=== PATIENT | female | born 1950 | race African-American/Black ===

== ENCOUNTER 2016-10-20 17:16 | Inpatient (IN) | payer MEDICARE, MEDICAID ==
[~2016-10-20] VITALS: Ht 175.3 cm; Wt 75.1 kg
[2016-10-20] VITALS (10 sets, daily range): BP systolic 93–127; BP diastolic 54–83; PULSE 83–132; RESP 16–24; TEMP 98.2–99; O2SAT 93–98
[~2016-10-20 17:16] MED LIST: ALLO100T PO; ASPI81TA11 PO; CLON0.1T PO; CLON1TAB PO; CYCL1TAB29 PO; DONE10TA7 PO; HYDR8TAB PO; LISI-515 PO; MORP1TAB25 PO; MORP1TAB26 PO; PROT40TA PO; VENTAER INH
[2016-10-20] MEDS ORDERED: SODIUM CHLOR 0.9% 1000 ML INJ 1,000 ML IV SCH (17:44)
[2016-10-20] MEDS ORDERED: SODIUM CHLORIDE 0.9% FLUSH 5 ML FLUSH IVF PRN (17:45)
[2016-10-20] MEDS ORDERED: PANTOPRAZOLE INJ 80 MG in SODIUM CHLORIDE 0.9% INJ 100 ML IV SCH (17:45)
[2016-10-20] MEDS ORDERED: PANTOPRAZOLE INJ 80 MG in SODIUM CHLORIDE 0.9% INJ 35 ML IV ONE (17:45)
[2016-10-20 18:16] LABS: AUTOMATED NEUTROPHIL # 2.6 TH/MM3 (1.8-7.7); BASOPHIL % 0.7 % (0.0-2.0); EOSINOPHIL # 0.1 TH/MM3 (0-0.4); EOSINOPHIL % 1.7 % (0.0-4.0); HEMATOCRIT 40.3 % (35.0-46.0); HEMO FLAGS DIFF FINAL; LYMPH % 34.4 % (9.0-44.0); LYMPHOCYTE # 1.7 TH/MM3 (1.0-4.8); MEAN CELL VOLUME 89.2 FL (80.0-100.0); MEAN CORPUSCULAR HEMOGLOBIN 30.4 PG (27.0-34.0); MONO % 10.1 % (0.0-8.0); NEUT % 53.1 % (16.0-70.0); PLATELET COUNT 193 TH/MM3 (150-450); RED BLOOD COUNT 4.51 MIL/MM3 (4.00-5.30); RED CELL DISTRIBUTION WIDTH 15.2 % (11.6-17.2); WHITE BLOOD COUNT 4.9 TH/MM3 (4.0-11.0)
[2016-10-20 18:27] LABS: APTT (PATIENT) 23.9 SEC (24.3-30.1); PROTHROMBIN TIME - PATIENT 11.2 SEC (9.8-11.6)
[2016-10-20] MEDS ORDERED: SODIUM CHLOR 0.9% 250 ML INJ 250 ML IV ONE (18:30)
--- NOTE | 2016-10-20 18:35 | PD ---
HPI Chief Complaint: GI Complaint Time Seen by Provider: 17:44 Travel History International Travel<30 days: No Contact w/Intl Traveler<30days: No Traveled to known affect area: No History of Present Illness HPI This is a 66-year-old female who presents to the emergency department with bright red blood per rectum. She says she went to the bathroom and she started to feel liquid coming out of her rectum. She thought it was diarrhea but when she looked it was bright red blood. She's never had blood come from her rectum like this before. She does say she feels a little bit lightheaded and dizzy. The bleeding is continued in the emergency department. She did have some lower abdominal cramping. She denies any blood thinners. PFSH Past Medical History Alzheimer's Disease: Yes (PT DENIES) Anemia: Yes (IRON DEFICIENCY ANEMIA CHRONIC) Arthritis: Yes (rheumatoid) Asthma: No Autoimmune Disease: No Anxiety: Yes Depression: Yes Cancer: No Cardiovascular Problems: Yes High Cholesterol: Yes Chest Pain: Yes Congestive Heart Failure: Yes Dementia: Yes Diabetes: No Diminished Hearing: No Endocrine: No Gastrointestinal Disorders: Yes (mass on liver) Genitourinary: No Hepatitis: Yes (C secondary to IV drug abuse, B (questionable)) Hiatal Hernia: Yes (REPAIR) Hypertension: Yes Immune Disorder: No Implanted Vascular Access Dvce: No Musculoskeletal: Yes Neurologic: Yes Psychiatric: Yes (ADDICTION & DEPRESSION) Reproductive: No Respiratory: Yes Immunizations Current: Yes Ulcer: Yes Menopausal: Yes : 5 Para: 3 : 2 Past Surgical History Abdominal Surgery: Yes (INGUINAL HERNIA REPAIR) Section: Yes (X1) Gynecologic Surgery: Yes Pacemaker: No Other Surgery: Yes (fx nose, fx ankle) Social History Alcohol Use: Yes (OCC) Tobacco Use: Yes (1 PPD) Substance Use: No Allergies-Medications (Allergen,Severity, Reaction): Coded Allergies: No Known Allergies (Verified , 10/15/16) Reported Meds & Prescriptions Reported Meds & Active Scripts Active Protonix (Pantoprazole Sodium) 40 Mg Tab 40 Mg PO DAILY Lisinopril 20 Mg Tab 20 Mg PO DAILY Resume lisinopril 20mg daily (taking the medication you have at home is okay) Clonidine (Clonidine HCl) 0.1 Mg Tab 0.1 Mg PO BID Ventolin Hfa 18 GM Inh (Albuterol Sulfate) 90 Mcg/Act Aer 2 Puff INH Q6H PRN Aspirin EC (Aspirin) 81 Mg Tabdr 81 Mg PO DAILY Reported Morphine ER (Morphine Sulfate) 60 Mg Tab 60 Mg PO DAILY IN THE PM Morphine ER (Morphine Sulfate) 30 Mg Tab 30 Mg PO DAILY IN THE AM Hydromorphone (Hydromorphone HCl) 8 Mg Tab 8 Mg PO QID Donepezil 10 Mg Tab 10 Mg PO HS Flexeril (Cyclobenzaprine HCl) 10 Mg Tab 10 Mg PO BID Clonazepam 1 Mg Tab 1 Mg PO BID Allopurinol 100 Mg Tab 100 Mg PO DAILY Review of Systems Except as stated in HPI: all other systems reviewed are Neg Physical Exam Narrative GENERAL: Pale, unwell-appearing SKIN: Warm and dry. HEAD: Atraumatic. Normocephalic. EYES: Pupils equal and round. No injection or drainage. ENT: Moist mucous membranes NECK: Trachea midline. CARDIOVASCULAR: Tachycardic. No murmur appreciated. RESPIRATORY: Clear to auscultation. Breath sounds equal bilaterally. GASTROINTESTINAL: Abdomen soft, tender mass in the supraumbilical region, non- reducible, large amount of pooled dark red blood in the rectum MUSCULOSKELETAL: No obvious deformities. NEUROLOGICAL: Awake and alert. No obvious cranial nerve deficits. Moving all extremities. PSYCHIATRIC: Appropriate mood and affect; insight and judgment normal. Data Data Last Documented VS Vital Signs Date Time Temp Pulse Resp B/P Pulse Ox O2 Delivery O2 Flow Rate FiO2 10/20/16 18:45 131 18 108/77 96 Room Air 10/20/16 17:20 99.0 Orders Electrocardiogram (10/20/16 ) Complete Blood Count With Diff (10/20/16 17:44) Comprehensive Metabolic Panel (10/20/16 17:44) Prothrombin Time / Inr (Pt) (10/20/16 17:44) Act Partial Throm Time (Ptt) (10/20/16 17:44) Type And Screen (10/20/16 17:44) Ecg Monitoring (10/20/16 17:44) Iv Access Insert/Monitor (10/20/16 17:44) Oximetry (10/20/16 17:44) Sodium Chlor 0.9% 1000 Ml Inj (Ns 1000 M (10/20/16 17:44) Sodium Chloride 0.9% Flush (Ns Flush) (10/20/16 17:45) Pantoprazole Inj (Protonix Inj) (10/20/16 17:45) Pantoprazole Inj (Protonix Inj) (10/20/16 17:45) Red Blood Cells (Rbc) (10/20/16 18:19) Blood Product Administration .UPON TRANSFUSION (10/20/16 18:19) Sodium Chlor 0.9% 250 Ml Inj (Ns 250 Ml (10/20/16 18:30) Consult Gastroenterology (10/20/16 ) Admit Order (Ed Use Only) (10/20/16 19:23) Labs Laboratory Tests Test 10/20/16 10/20/16 17:50 18:19 White Blood Count 4.9 TH/MM3 Red Blood Count 4.51 MIL/MM3 Hemoglobin 13.7 GM/DL Hematocrit 40.3 % Mean Corpuscular Volume 89.2 FL Mean Corpuscular Hemoglobin 30.4 PG Mean Corpuscular Hemoglobin 34.0 % Concent Red Cell Distribution Width 15.2 % Platelet Count 193 TH/MM3 Mean Platelet Volume 10.6 FL Neutrophils (%) (Auto) 53.1 % Lymphocytes (%) (Auto) 34.4 % Monocytes (%) (Auto) 10.1 % Eosinophils (%) (Auto) 1.7 % Basophils (%) (Auto) 0.7 % Neutrophils # (Auto) 2.6 TH/MM3 Lymphocytes # (Auto) 1.7 TH/MM3 Monocytes # (Auto) 0.5 TH/MM3 Eosinophils # (Auto) 0.1 TH/MM3 Basophils # (Auto) 0.0 TH/MM3 CBC Comment DIFF FINAL Differential Comment Prothrombin Time 11.2 SEC Prothromb Time International 1.0 RATIO Ratio Activated Partial 23.9 SEC Thromboplast Time Sodium Level 139 MEQ/L Potassium Level 4.9 MEQ/L Chloride Level 108 MEQ/L Carbon Dioxide Level 22.4 MEQ/L Anion Gap 9 MEQ/L Blood Urea Nitrogen 25 MG/DL Creatinine 1.11 MG/DL Estimat Glomerular Filtration 60 ML/MIN Rate Random Glucose 136 MG/DL Calcium Level 9.2 MG/DL Total Bilirubin 0.8 MG/DL Aspartate Amino Transf 61 U/L (AST/SGOT) Alanine Aminotransferase 25 U/L (ALT/SGPT) Alkaline Phosphatase 98 U/L Total Protein 8.7 GM/DL Albumin 3.2 GM/DL Blood Type A POSITIVE Antibody Screen NEGATIVE Crossmatch Leukocyte-Reduced Leukocyte-Reduced Red Blood Red Blood Cells Cells Blood Bank Comment MDM Medical Decision Making Medical Screen Exam Complete: Yes Emergency Medical Condition: Yes Interpretation(s) Afebrile, tachycardic, normotensive No leukocytosis Hemoglobin is 13.7 BUN is 25 Differential Diagnosis Diverticulosis, AVM, colitis, ischemic bowel Narrative Course This is a 66-year-old female who presents to the emergency department with GI bleeding. The patient has a copious amount of dark blood and blood clots in the rectum which has been persisting in the emergency department. She is tachycardic and on EKG appears to be in a sinus tachycardia. She appears pale and has a blood pressure in the 90s to 100 systolic. She was placed on a monitor and large bore IV access was established. She was given 2 units of uncrossed matched emergency release blood given her tachycardia. She was started on pantoprazole. I spoke to Dr. Newman who is aware of the patient. Will be admitted to the intensive care unit for further management. Critical Care Narrative Aggregate critical care time was 45 minutes. Time to perform other separately billable procedures was not included in the critical care time. My time did not include minutes spent treating any other patients simultaneously or on activities that did not directly contribute to the patient's treatment. The services I provided to this patient were to treat and/or prevent clinically significant deterioration that could result in: Disability, I provided critical care services requiring my management, as noted below: Chart data review, documentation time, medication orders and management, vital sign assessments/reviewing monitor data, ordering and reviewing lab tests, ordering and interpreting/reviewing x-rays and diagnostic studies, care of the patient and discussion of the patient with the admitting physicians. Physician Communication Physician Communication Discussed with Dr. Oropeza Diagnosis Primary Impression: GI bleed Qualified Code: K92.2 - Gastrointestinal hemorrhage, unspecified gastrointestinal hemorrhage type Cherie Johns MD Oct 20, 2016 18:35
[2016-10-20 18:50] LABS: ALKALINE PHOSPHATASE 98 U/L (45-117); TOTAL BILIRUBIN ADULT 0.8 MG/DL (0.2-1.0)
[2016-10-20 18:54] LABS: ALT (GPT) 25 U/L (10-53); ANION GAP 9 MEQ/L (5-15); AST (GOT) 61 U/L (15-37); BICARBONATE 22.4 MEQ/L (21.0-32.0); BLOOD UREA NITROGEN 25 MG/DL (7-18); CHLORIDE 108 MEQ/L (98-107); GLOMERULAR FILTRATION RATE 60 ML/MIN (>89); POTASSIUM 4.9 MEQ/L (3.5-5.1); SODIUM (NA) 139 MEQ/L (136-145)
--- NOTE | 2016-10-20 21:29 | HHI.HP ---
[facility] Service Critical Care Medicine Primary Care Physician Non-Staff Admission Diagnosis gi bleed Diagnosis: Travel History International Travel<30 Days: No Contact w/Intl Traveler <30 Da: No Traveled to Known Affected Are: No History of Present Illness 66-year-old female with past medical history of hypertension, hepatitis C, polysubstance abuse, prior alcohol dependence, cirrhosis who presents to [facility] with GI bleeding. She states that she has been feeling weak, dizzy, and fatigued all day. She states that she had a syncopal event about one hour prior to arrival. She has had multiple bloody bowel movements (approximately 6) and has passed dark clots. Denies any nausea vomiting or hematemesis. Denies abdominal pain other than some cramping that occurred right before she had her first bowel movement. No fevers or chills. She does state that she takes ibuprofen about twice a week. She has a prior history of long-term alcohol abuse drinking a pint a day for most of her life but states that she quit in August 2016. She denies known history of varices. She has had prior GI bleeding in 2012 and had a colonoscopy with poor prep. She then refused colon prep and refused repeat colonoscopy. Upon arrival to the emergency department her heart rate was in the 130s and blood pressure was 93/59 MAP 70. Multiple large bore peripheral IVs were placed. She was transfused 2 units of emergency release packed red cells. Subsequently heart rate 90-100s and BP 117/67 Hemoglobin was 13.7. Platelets and Coags are normal. Review of Systems Constitutional: COMPLAINS OF: Fatigue Gastrointestinal: COMPLAINS OF: Abdominal pain, Bloody stools Past Family Social History Allergies: Coded Allergies: No Known Allergies (Verified , 10/15/16) Past Medical History Hypertension Gout Rheumatoid arthritis Hepatitis C Cirrhosis Previously seen by hematology for pancytopenia Dementia Past Surgical History section Hernia repair Colonoscopy in 2012 with poor bowel prep. She had refused bowel prep for repeat colonoscopy Reported Medications Lisinopril 20 monos. Daily Allopurinol 100 Monopril daily Clonazepam 1 mg by mouth twice a day Albuterol 2 puffs inhaled every 6 hours when necessary Clonidine 0.1 mA by mouth twice a day Flexeril 10 mg by mouth twice a day Aspirin 81 mill grams by mouth daily Dilaudid 8 mg by mouth 4 times a day Morphine ER 30 mill grams by mouth every morning/60 mg by mouth daily at bedtime Donepezil 10 mg by mouth daily at bedtime for dementia Pantoprazole 40 mg by mouth daily Social History She has smoked since age 16. She states she is trying to cut back and is currently smoking 3 cigarettes per day She has a history of long-term alcohol abuse drinking about a pint a day. She quit drinking in August 2016 History of heroin use last use was in 1982 She has a history of cocaine abuse and use as recently as a month ago. Lives with her son and [id number] Ambulates with a walker Physical Exam Vital Signs Vital Signs Date Time Temp Pulse Resp B/P Pulse Ox O2 Delivery O2 Flow Rate FiO2 10/20/16 21:00 104 24 121/65 96 Nasal Cannula 2 10/20/16 20:30 111 24 94/63 96 Nasal Cannula 2 10/20/16 20:00 115 24 98/67 97 Nasal Cannula 2 10/20/16 19:30 123 24 96/54 95 Nasal Cannula 2 10/20/16 19:00 131 24 93/59 93 Room Air 10/20/16 19:00 98.7 10/20/16 18:45 131 18 108/77 96 Room Air 10/20/16 18:29 97 Room Air 10/20/16 17:20 99.0 132 18 127/83 95 Physical Exam Blood pressure 117/67 respirations 18 pulse 98 100% on 2 L nasal cannula GENERAL: Well-nourished, well-developed patient who is sitting up in ED bed. SKIN: Warm and dry. HEAD: Atraumatic. Normocephalic. EYES: Pupils equal and round. No scleral icterus. ENT: No nasal bleeding or discharge. Mucous membranes NECK: Trachea midline. No JVD. CARDIOVASCULAR: Regular rate and rhythm, sinus rhythm on the monitor. No murmurs rubs or gallops. RESPIRATORY: No accessory muscle use, breathing comfortably. Clear to auscultation. Breath sounds equal bilaterally. On 2 L nasal cannula. GASTROINTESTINAL: Abdomen mildly distended but soft. There is a midline incision that is well-healed. There is a reducible ventral hernia. There is no tenderness or guarding.. Hepatic and splenic margins not palpable. MUSCULOSKELETAL: Extremities without clubbing, cyanosis, or edema. No obvious deformities. NEUROLOGICAL: Awake and alert. No obvious cranial nerve deficits. Motor grossly within normal limits. Spontaneously moving all extremities Normal speech. Laboratory Laboratory Tests Test 10/20/16 10/20/16 17:50 18:19 White Blood Count 4.9 Red Blood Count 4.51 Hemoglobin 13.7 Hematocrit 40.3 Mean Corpuscular Volume 89.2 Mean Corpuscular Hemoglobin 30.4 Mean Corpuscular Hemoglobin 34.0 Concent Red Cell Distribution Width 15.2 Platelet Count 193 Mean Platelet Volume 10.6 Neutrophils (%) (Auto) 53.1 Lymphocytes (%) (Auto) 34.4 Monocytes (%) (Auto) 10.1 Eosinophils (%) (Auto) 1.7 Basophils (%) (Auto) 0.7 Neutrophils # (Auto) 2.6 Lymphocytes # (Auto) 1.7 Monocytes # (Auto) 0.5 Eosinophils # (Auto) 0.1 Basophils # (Auto) 0.0 CBC Comment DIFF FINAL Differential Comment Prothrombin Time 11.2 Prothromb Time International 1.0 Ratio Activated Partial 23.9 Thromboplast Time Sodium Level 139 Potassium Level 4.9 Chloride Level 108 Carbon Dioxide Level 22.4 Anion Gap 9 Blood Urea Nitrogen 25 Creatinine 1.11 Estimat Glomerular Filtration 60 Rate Random Glucose 136 Calcium Level 9.2 Total Bilirubin 0.8 Aspartate Amino Transf 61 (AST/SGOT) Alanine Aminotransferase 25 (ALT/SGPT) Alkaline Phosphatase 98 Total Protein 8.7 Albumin 3.2 Blood Type A POSITIVE Antibody Screen NEGATIVE Crossmatch Leukocyte-Reduced Leukocyte-Reduced Red Blood Red Blood Cells Cells Blood Bank Comment Result Diagram: 10/20/16 1750 10/20/16 175 Assessment and Plan Assessment and Plan NEURO: Dementia History of EtOH dependence History of polysubstance abuse including recent use of cocaine abuse and remote history of heroin Hold donepezil for now Dilaudid when necessary pain Hold home medications are now including Flexeril 10 mg by mouth twice a day, morphine ER 30 mg every morning and 60 every afternoon, hydromorphone 8 mill grams by mouth 4 times a day RESP: Nasal cannula wean as tolerated CV: History of hypertension Grade 1 diastolic dysfunction Monitor hemodynamics Received 1 L normal saline in the emergency department and resuscitated with 2 units PRBC. Hold aspirin 81 mill grams daily. Hold lisinopril 20 mill grams by mouth daily. GI: Alcoholic Cirrhosis GI bleeding GERD Hepatitis C Protonix drip. Consult octreotide drip. Rocephin 1 g IV daily due to history cirrhosis Hold NSAIDS. Bowel prep for colonoscopy. Discussed with Dr. Newman. Gastroenterology consulted, Dr. Newman FEN/RENAL: [place]. Monitor intake and output. Monitor electrolytes and replace as indicated per ICU electrolyte replacement protocol. NS 125 ml/hr. Monitor intake and output. ID: Rocephin for GI bleeding as per above. HEME: Transfused 2 units PRBC in the emergency department. Hemoglobin every 6 hours. Coags and platelets WNL. Transfuse as indicated for hemoglobin less than 7 or hemodynamic instability. History of pancytopenia secondary to cirrhosis, previously seen by hematology ( Dr. Vaughn). ENDO: Euglycemic MSK: Gout Reported h/o RA not on disease modifying agents PROPH: SCDs for DVT prophylaxis. Pharmacologic DVT prophylaxis contraindicated due to GI bleeding. Protonix drip as per above. ACCESS: She has multiple large-bore peripheral IVs Level 3 Estrellita Oropeza MD Oct 20, 2016 21:29
[2016-10-20] MEDS ORDERED: PEG (High)/E-LYTE SOLN 4000 ML BTL PO ONE (22:45)
[2016-10-20] MEDS ORDERED: RESP: ALBUTEROL 2.5 MG/3 ML NEB (PRN) INH (23:00)
[2016-10-20] MEDS ORDERED: MISCELLANEOUS NURSING INFORMATION XX SCH (23:00)
[2016-10-20] MEDS ORDERED: ONDANSETRON HCL 4 MG/2 ML VIAL IV PRN (23:00)
[2016-10-20] MEDS ORDERED: CHLORHEXIDINE GLUCONATE 2 % 1 PACK (2 CLOTHS) TOP PRN (23:00)
[2016-10-20] MEDS ORDERED: SODIUM CHLORIDE 0.9% FLUSH 5 ML FLUSH IV FLUSH PRN (23:00)
[2016-10-20] MEDS: SODIUM CHLOR 0.9% 1000 ML INJ 1,000 ML IV SCH (23:44)
[2016-10-20] MEDS: OCTREOTIDE INJ 500 MCG in SODIUM CHLORID 0.9% 500 ML INJ 499.5 ML IV SCH (23:45)
[2016-10-21] VITALS (12 sets, daily range): BP systolic 120–160; BP diastolic 73–88; PULSE 76–98; RESP 14–18; TEMP 98–99.1; O2SAT 92–98
[2016-10-21 00:37] LABS: HEMATOCRIT 41.4 % (35.0-46.0)
[2016-10-21 00:40] LABS: REVIEW FLAG FINAL
[2016-10-21] MEDS: CHLORHEXIDINE GLUCONATE 2 % 1 PACK (2 CLOTHS) TOP SCH (03:45)
[2016-10-21] MEDS ORDERED: HYDROmorphone HCL PF 1 MG/ML VIAL IV PUSH PRN (04:30)
[2016-10-21] MEDS ORDERED: HYDROmorphone HCL PF 2 MG/ML VIAL IV PUSH PRN (04:30)
[2016-10-21] MEDS: PANTOPRAZOLE INJ 80 MG in SODIUM CHLORIDE 0.9% INJ 100 ML IV SCH ×2 (05:39→18:10)
[2016-10-21 06:43] LABS: AUTOMATED NEUTROPHIL # 3.7 TH/MM3 (1.8-7.7); BASOPHIL # 0.1 TH/MM3 (0-0.2); BASOPHIL % 0.9 % (0.0-2.0); EOSINOPHIL # 0.1 TH/MM3 (0-0.4); HEMATOCRIT 37.8 % (35.0-46.0); LYMPH % 30.3 % (9.0-44.0); MEAN CELL VOLUME 85.3 FL (80.0-100.0); MEAN CORPUSCULAR HEMOGLOBIN 28.1 PG (27.0-34.0); MEAN CORPUSCULAR HGB CONC 32.9 % (32.0-36.0); MONO % 9.7 % (0.0-8.0); NEUT % 58.1 % (16.0-70.0); PLATELET COUNT 91 TH/MM3 (150-450); RED BLOOD COUNT 4.44 MIL/MM3 (4.00-5.30); RED CELL DISTRIBUTION WIDTH 20.6 % (11.6-17.2); WHITE BLOOD COUNT 6.4 TH/MM3 (4.0-11.0)
[2016-10-21 07:04] LABS: ALKALINE PHOSPHATASE 80 U/L (45-117); ALT (GPT) 16 U/L (10-53); ANION GAP 8 MEQ/L (5-15); AST (GOT) 25 U/L (15-37); BICARBONATE 22.3 MEQ/L (21.0-32.0); BLOOD UREA NITROGEN 28 MG/DL (7-18); CHLORIDE 112 MEQ/L (98-107); GLOMERULAR FILTRATION RATE 62 ML/MIN (>89); MAGNESIUM 1.9 MG/DL (1.5-2.5); POTASSIUM 5.5 MEQ/L (3.5-5.1); SODIUM (NA) 142 MEQ/L (136-145); TOTAL BILIRUBIN ADULT 0.8 MG/DL (0.2-1.0)
[2016-10-21 07:11] LABS: HEMO FLAGS AUTO DIFF
[2016-10-21] MEDS: SODIUM CHLORIDE 0.9% FLUSH 5 ML FLUSH IV FLUSH SCH ×2 (07:55→20:24)
[2016-10-21] MEDS: SODIUM CHLOR 0.9% 1000 ML INJ 1,000 ML IV SCH (07:55)
[2016-10-21 08:57] LABS: ACANTHOCYTES OCC (NORMAL); PLATELET ESTIMATE SMEAR LOW (NORMAL); PLATELET MORPHOLOGY NORMAL (NORMAL); SCAN/DIFF AUTO DIFF CONFIRMED
--- NOTE | 2016-10-21 09:28 | HHI.CCPN ---
Subjective Remarks/Hospital Course 66-year-old female with past medical history of hypertension, hepatitis C, polysubstance abuse, prior alcohol dependence, cirrhosis who presents to [facility] with GI bleeding. She states that she has been feeling weak, dizzy, and fatigued all day. She states that she had a syncopal event about one hour prior to arrival. She has had multiple bloody bowel movements (approximately 6) and has passed dark clots. Denies any nausea vomiting or hematemesis. Denies abdominal pain other than some cramping that occurred right before she had her first bowel movement. No fevers or chills. She does state that she takes ibuprofen about twice a week. She has a prior history of long-term alcohol abuse drinking a pint a day for most of her life but states that she quit in August 2016. She denies known history of varices. She has had prior GI bleeding in 2012 and had a colonoscopy with poor prep. She then refused colon prep and refused repeat colonoscopy. Upon arrival to the emergency department her heart rate was in the 130s and blood pressure was 93/59 MAP 70. Multiple large bore peripheral IVs were placed. She was transfused 2 units of emergency release packed red cells. Subsequently heart rate 90-100s and BP 117/67 Hemoglobin was 13.7. Platelets and Coags are normal. / Patient is lying in bed in NAD. s/p transfusion 2u PRBC on arrival. Hgb 12.4 this morning. On Octreotide and Protonix drips. For colonoscopy today. Objective Vital Signs Date Time Temp Pulse Resp B/P Pulse Ox O2 Delivery O2 Flow Rate FiO2 10/21/16 06:00 98 10/21/16 04:00 98.0 14 125/73 97 10/20/16 21:00 Nasal Cannula 2 Intake and Output 10/20/16 10/20/16 10/21/16 08:00 16:00 00:00 Output Total 175 ml Balance -175 ml Result Diagram: 10/21/16 0604 10/21/16 0604 Other Results Laboratory Tests Test 10/20/16 10/20/16 10/20/16 10/21/16 17:50 18:19 23:30 00:07 White Blood Count 4.9 TH/MM3 Red Blood Count 4.51 MIL/MM3 Hemoglobin 13.7 GM/DL 13.8 GM/DL Hematocrit 40.3 % 41.4 % Mean Corpuscular Volume 89.2 FL Mean Corpuscular Hemoglobin 30.4 PG Mean Corpuscular Hemoglobin 34.0 % Concent Red Cell Distribution Width 15.2 % Platelet Count 193 TH/MM3 Mean Platelet Volume 10.6 FL Neutrophils (%) (Auto) 53.1 % Lymphocytes (%) (Auto) 34.4 % Monocytes (%) (Auto) 10.1 % Eosinophils (%) (Auto) 1.7 % Basophils (%) (Auto) 0.7 % Neutrophils # (Auto) 2.6 TH/MM3 Lymphocytes # (Auto) 1.7 TH/MM3 Monocytes # (Auto) 0.5 TH/MM3 Eosinophils # (Auto) 0.1 TH/MM3 Basophils # (Auto) 0.0 TH/MM3 CBC Comment DIFF FINAL Differential Comment Prothrombin Time 11.2 SEC Prothromb Time International 1.0 RATIO Ratio Activated Partial 23.9 SEC Thromboplast Time Sodium Level 139 MEQ/L Potassium Level 4.9 MEQ/L Chloride Level 108 MEQ/L Carbon Dioxide Level 22.4 MEQ/L Anion Gap 9 MEQ/L Blood Urea Nitrogen 25 MG/DL Creatinine 1.11 MG/DL Estimat Glomerular Filtration 60 ML/MIN Rate Random Glucose 136 MG/DL Calcium Level 9.2 MG/DL Total Bilirubin 0.8 MG/DL Aspartate Amino Transf 61 U/L (AST/SGOT) Alanine Aminotransferase 25 U/L (ALT/SGPT) Alkaline Phosphatase 98 U/L Total Protein 8.7 GM/DL Albumin 3.2 GM/DL Blood Type A POSITIVE Antibody Screen NEGATIVE Crossmatch Leukocyte-Reduced Leukocyte-Reduced Red Blood Red Blood Cells Cells Blood Bank Comment Nasal Screen MRSA (PCR) NEGATIVE Test 10/21/16 06:04 White Blood Count 6.4 TH/MM3 Red Blood Count 4.44 MIL/MM3 Hemoglobin 12.4 GM/DL Hematocrit 37.8 % Mean Corpuscular Volume 85.3 FL Mean Corpuscular Hemoglobin 28.1 PG Mean Corpuscular Hemoglobin 32.9 % Concent Red Cell Distribution Width 20.6 % Platelet Count 91 TH/MM3 Mean Platelet Volume 9.6 FL Neutrophils (%) (Auto) 58.1 % Lymphocytes (%) (Auto) 30.3 % Monocytes (%) (Auto) 9.7 % Eosinophils (%) (Auto) 1.0 % Basophils (%) (Auto) 0.9 % Neutrophils # (Auto) 3.7 TH/MM3 Lymphocytes # (Auto) 2.0 TH/MM3 Monocytes # (Auto) 0.6 TH/MM3 Eosinophils # (Auto) 0.1 TH/MM3 Basophils # (Auto) 0.1 TH/MM3 CBC Comment AUTO DIFF Differential Comment AUTO DIFF CONFIRMED Platelet Estimate LOW Platelet Morphology Comment NORMAL Acanthocytes OCC Sodium Level 142 MEQ/L Potassium Level 5.5 MEQ/L Chloride Level 112 MEQ/L Carbon Dioxide Level 22.3 MEQ/L Anion Gap 8 MEQ/L Blood Urea Nitrogen 28 MG/DL Creatinine 1.07 MG/DL Estimat Glomerular Filtration 62 ML/MIN Rate Random Glucose 191 MG/DL Calcium Level 8.3 MG/DL Phosphorus Level 3.1 MG/DL Magnesium Level 1.9 MG/DL Total Bilirubin 0.8 MG/DL Aspartate Amino Transf 25 U/L (AST/SGOT) Alanine Aminotransferase 16 U/L (ALT/SGPT) Alkaline Phosphatase 80 U/L Total Protein 6.7 GM/DL Albumin 2.5 GM/DL Objective Remarks GENERAL: Patient is 66 yo lying in be din no acute resp distress SKIN: Warm and dry. HEAD: Normocephalic. EYES: No scleral icterus. No injection or drainage. NECK: Supple, trachea midline. No JVD or lymphadenopathy. CARDIOVASCULAR: Regular rate and rhythm without murmurs, gallops, or rubs. RESPIRATORY: Breath sounds equal bilaterally. No accessory muscle use. GASTROINTESTINAL: Abdomen soft, non-tender, nondistended. MUSCULOSKELETAL: No cyanosis, or edema. BACK: Nontender without obvious deformity. No CVA tenderness. Neuro: Awake and alert. A/P Assessment and Plan NEURO: Dementia History of EtOH dependence History of polysubstance abuse including recent use of cocaine abuse and remote history of heroin Check UDS Dilaudid when necessary pain RESP: Continue with oxygen keep sat >92% CV: History of hypertension Grade 1 diastolic dysfunction Monitor HR and BP keep MAP>65mmHg Received 1 L normal saline in the emergency department and resuscitated with 2 units PRBC. Aspirin and lisinopril on hold Continue with IVF- decrease NS@75ml/hr GI: Alcoholic Cirrhosis GI bleeding GERD Hepatitis C Protonix drip, octreotide drip. Place on Rocephin 1 g IV daily due to history cirrhosis Bowel prep for colonoscopy. GI service is following- Dr. Newman FEN/RENAL: Monitor renal function, I/O's, electrolytes replacement as needed Continue with IVF -NS @75ml/hr, diurese with Bumex 1mg x1 ID: Rocephin for GI bleeding as per above. Monitor for signs of infections ( Fever, WBC) HEME:s/p Transfusion 2 units PRBC in ED History of pancytopenia secondary to cirrhosis, previously seen by hematology ( Dr. Vaughn). Monitor CBC ENDO: Place on SSI ( low scale) for glycemic control MSK: Gout Reported h/o RA not on disease modifying agents PROPH: SCDs for DVT prophylaxis. Pharmacologic DVT prophylaxis contraindicated due to GI bleeding. Protonix drip as per above. ACCESS: She has multiple large-bore peripheral IVs Level 3 Ilda Hogan MD Oct 21, 2016 09:28
[2016-10-21] MEDS: INSULIN NovoLIN REGULAR SUPPLEMENTAL SCALE SQ SCH ×3 (09:30→22:08)
[2016-10-21] MEDS ORDERED: GLUCAGON 1 MG/ML VIAL OTHER PRN (09:30)
[2016-10-21] MEDS ORDERED: BUMETANIDE INJ 1 MG/4 ML VIAL IV PUSH ONE (09:30)
[2016-10-21] MEDS ORDERED: DEXTROSE 50% IN WATER 50 ML VIAL(D50) IV PUSH PRN (09:30)
[2016-10-21] MEDS: OCTREOTIDE INJ 500 MCG in SODIUM CHLORID 0.9% 500 ML INJ 499.5 ML IV SCH ×2 (10:07→20:23)
[2016-10-21] MEDS: cefTRIAXone INJ 1,000 MG in SODIUM CHLORIDE 0.9% INJ 100 ML IV SCH (10:15)
[2016-10-21 11:53] LABS: HEMATOCRIT 35.9 % (35.0-46.0)
[2016-10-21 11:54] LABS: REVIEW FLAG FINAL
[2016-10-21 14:15] LABS: AMPHETAMINE, URINE NEG (NEG); BARBITURATES, URINE NEG (NEG); COCAINE, URINE NEG (NEG)
[2016-10-21] MEDS ORDERED: PROPOFOL 200 MG/20 ML AMP IV ONE (15:54)
[2016-10-21] MEDS ORDERED: DO NOT ADM ANY ANTICOAGULANT DRUGS XX PRN (17:15)
[2016-10-21 19:49] LABS: HEMATOCRIT 35.8 % (35.0-46.0)
[2016-10-21 19:52] LABS: REVIEW FLAG FINAL
--- NOTE | 2016-10-21 20:54 | MR ---
cc: MAURICIO LEMOS DATE: 10/21/2016 DATE OF : [address] Oropeza PROCEDURE Upper gastrointestinal endoscopy with biopsy and dilation of esophageal stricture. Colonoscopy with biopsy. INDICATIONS 56-year-old lady with GI bleed. PROCEDURE NOTE: ENDOSCOPY After informing the patient about the procedure and complication consent was signed. The patient was placed on her left lateral decubitus position. Adequate sedation was achieved by propofol. Scope was placed in the mouth, advanced under video guidance to the second portion of the duodenum. Scope drawn back through the stomach. Retroflexion was performed. Biopsy was done from the antrum and lesser curve and a guidewire was passed through the scope, then dilator size 18 mm was passed over the guidewire. COLONOSCOPY After that rectal exam was performed. Scope was placed in the rectum, advanced under video guidance to the cecum which was identified by the ileocecal valve and appendiceal orifice. There was a large ulcerated area in the cecum, questionable ischemia versus ulcerated lesion. Biopsy was done. No active bleeding but most likely this was the source of the bleed. The scope was drawn back gradually to the rectum. Retroflexion was performed and the scope was drawn back without any immediate complication. FINDINGS 1. Distal esophageal stricture status post dilation. 2. Gastritis, mild. Biopsy was done. 3. Large ulcerated area in the cecum. Biopsy was done. Possible ischemia, versus ulcerated lesion. 4. Severe diverticulosis throughout the colon. 5. No active bleeding at this time. RECOMMENDATIONS: 1. May feed patient clear liquid. 2. Follow up biopsy. 3. Continue PPI. 4. Check CBC in the morning. 5. Colonoscopy in six weeks. MD ALMITA Canela/FANG /4:29 PM /8:44 PM
[2016-10-21] MEDS ORDERED: clonazePAM 1 MG TAB PO ONE (21:30)
[2016-10-21] MEDS: MORPHINE SULFATE 60 MG CONTROLLED RELEASE TAB PO SCH (22:08)
--- NOTE | 2016-10-21 23:56 | EKG ---
Date Performed: 10/20/2016 Time Performed: 17:35:22 PTAGE: 66 years EKG: SINUS TACHYCARDIA MINIMAL VOLTAGE CRITERIA FOR LVH, CONSIDER NORMAL VARIANT ABNORMAL RHYTHM ECG PREVIOUS TRACING : 10/16/2016 05.02 DOCTOR: Jeannie Jett Interpretating Date/Time 10/21/2016 23:48:08
[2016-10-22] VITALS (10 sets, daily range): BP systolic 115–177; BP diastolic 74–98; PULSE 77–119; RESP 14–20; TEMP 97.1–100.2; O2SAT 95–100
[2016-10-22] MEDS: PANTOPRAZOLE INJ 80 MG in SODIUM CHLORIDE 0.9% INJ 100 ML IV SCH ×2 (01:40→14:16)
[2016-10-22 01:46] LABS: HEMATOCRIT 34.7 % (35.0-46.0)
[2016-10-22 02:09] LABS: REVIEW FLAG FINAL
[2016-10-22] MEDS: INSULIN NovoLIN REGULAR SUPPLEMENTAL SCALE SQ SCH ×4 (03:30→21:30)
[2016-10-22 04:43] LABS: AUTOMATED NEUTROPHIL # 3.1 TH/MM3 (1.8-7.7); BASOPHIL % 0.4 % (0.0-2.0); EOSINOPHIL # 0.1 TH/MM3 (0-0.4); EOSINOPHIL % 1.8 % (0.0-4.0); HEMATOCRIT 32.1 % (35.0-46.0); LYMPH % 23.6 % (9.0-44.0); LYMPHOCYTE # 1.1 TH/MM3 (1.0-4.8); MEAN CELL VOLUME 85.5 FL (80.0-100.0); MEAN CORPUSCULAR HGB CONC 32.8 % (32.0-36.0); MONO % 10.8 % (0.0-8.0); NEUT % 63.4 % (16.0-70.0); PLATELET COUNT 84 TH/MM3 (150-450); RED BLOOD COUNT 3.75 MIL/MM3 (4.00-5.30); RED CELL DISTRIBUTION WIDTH 19.4 % (11.6-17.2); WHITE BLOOD COUNT 4.9 TH/MM3 (4.0-11.0)
[2016-10-22 04:45] LABS: HEMATOCRIT 32.5 % (35.0-46.0)
[2016-10-22 04:49] LABS: REVIEW FLAG FINAL
[2016-10-22 04:52] LABS: HEMO FLAGS AUTO DIFF
[2016-10-22] MEDS: CHLORHEXIDINE GLUCONATE 2 % 1 PACK (2 CLOTHS) TOP SCH (05:08)
[2016-10-22] MEDS: SODIUM CHLOR 0.9% 1000 ML INJ 1,000 ML IV SCH ×2 (05:08→17:40)
[2016-10-22 05:15] LABS: BICARBONATE 22.1 MEQ/L (21.0-32.0); POTASSIUM 3.7 MEQ/L (3.5-5.1)
[2016-10-22 08:10] LABS: SCAN/DIFF AUTO DIFF CONFIRMED
[2016-10-22] MEDS: MORPHINE SULFATE 30 MG CONTROLLED RELEASE TAB PO SCH (08:56)
[2016-10-22] MEDS: ALLOPURINOL 100 MG TAB PO SCH (08:56)
[2016-10-22] MEDS: CYCLOBENZAPRINE HCL 10 MG TAB PO SCH ×2 (08:56→21:47)
[2016-10-22] MEDS: SODIUM CHLORIDE 0.9% FLUSH 5 ML FLUSH IV FLUSH SCH ×2 (08:56→21:00)
[2016-10-22] MEDS: MORPHINE SULFATE 60 MG CONTROLLED RELEASE TAB PO SCH (08:56)
[2016-10-22] MEDS: clonazePAM 1 MG TAB PO SCH ×2 (08:56→21:47)
[2016-10-22] MEDS: cefTRIAXone INJ 1,000 MG in SODIUM CHLORIDE 0.9% INJ 100 ML IV SCH (10:32)
--- NOTE | 2016-10-22 11:54 | HHI.PR ---
Subjective Remarks no complains of abdominal pain, nausea or vomiting "starving" tolerating clears Objective Vitals Vital Signs Date Time Temp Pulse Resp B/P Pulse Ox O2 Delivery O2 Flow Rate FiO2 10/22/16 10:00 81 10/22/16 08:31 95 Nasal Cannula 3.00 10/22/16 08:00 77 10/22/16 08:00 97.7 77 16 131/74 99 10/22/16 06:00 83 10/22/16 04:00 98.6 78 14 115/76 100 10/22/16 04:00 78 10/22/16 02:00 83 10/22/16 00:00 98 10/22/16 00:00 98.0 98 20 148/92 95 10/21/16 23:40 20 10/21/16 22:00 95 10/21/16 20:00 98.9 96 18 160/88 92 10/21/16 20:00 92 10/21/16 18:00 78 10/21/16 17:15 72 16 126/87 98 Nasal Cannula 3 10/21/16 17:00 72 16 130/83 97 Nasal Cannula 3 10/21/16 16:45 82 16 121/78 96 Nasal Cannula 3 10/21/16 16:35 97.7 88 16 90/57 96 Nasal Cannula 3 10/21/16 15:19 98.3 80 14 128/74 98 10/21/16 14:00 76 10/21/16 12:00 98.3 80 14 128/74 96 10/21/16 12:00 80 I/O 10/21/16 10/21/16 10/21/16 10/22/16 10/22/16 10/22/16 07:00 15:00 23:00 07:00 15:00 23:00 Intake Total 4144 ml 1531 ml 806 ml 860 ml Output Total 1375 ml 2350 ml 1500 ml 1100 ml Balance 2769 ml -819 ml -694 ml -240 ml Intake Oral 3000 ml 300 ml 300 ml IV Total 1144 ml 1231 ml 806 ml 560 ml Output Urine Total 375 ml 1450 ml 1500 ml 1100 ml Stool Total 1000 ml 900 ml Result Diagram: 10/22/16 04210/22/16 0420 Objective Remarks awake and alert, oriented x 3 anicteric lungs clear regular rhythm abdomen soft, nontender extremities no edema no calf tenderness neuro exam- non focal Procedures panedoscopy with biopsy and dilatation done - duodenitis, gastritis, esophageal stricture colonoscopy- caecal ulceration A/P Assessment and Plan NEURO: Dementia History of EtOH dependence History of polysubstance abuse including recent use of cocaine abuse and remote history of heroin History of chronic pain on chronic pain meds CV: History of hypertension Grade 1 diastolic dysfunction Monitor HR and BP keep MAP>65mmHg Received 1 L normal saline in the emergency department and resuscitated with 2 units PRBC. Aspirin and lisinopril on hold GI: Alcoholic Cirrhosis GI bleeding GERD Hepatitis C - S/P EGD/colonoscopy- gastritis,. esophagal stricture, caecal ulceration OP ff up with GI on PPI- ID: no signs of infection DC rocephin HEME:s/p Transfusion 2 units PRBC in ED History of pancytopenia secondary to cirrhosis, previously seen by hematology ( Dr. Vaughn). Monitor CBC ENDO: Place on SSI ( low scale) for glycemic control MSK: Gout per patient histopry of RA not on any DMARD- walker History of chronic pain- ff by pain management as OP- Bertram - on Morphine po PROPH: SCDs for DVT prophylaxis. Pharmacologic DVT prophylaxis contraindicated due to GI bleeding. Protonix ACCESS: She has multiple large-bore peripheral IVs PT/OT consult CM_ SNF vs home with home health, look into home living situation- has a son Melina Parmar MD Oct 22, 2016 11:54
[2016-10-22] MEDS: DONEPEZIL HCL 5 MG TAB PO SCH (21:47)
[2016-10-23] MEDS: PANTOPRAZOLE INJ 80 MG in SODIUM CHLORIDE 0.9% INJ 100 ML IV SCH ×2
[2016-10-23 00:08] VITALS: BP 149/89; PULSE 106; RESP 16; TEMP 99.5; O2SAT 95
[2016-10-23] MEDS: INSULIN NovoLIN REGULAR SUPPLEMENTAL SCALE SQ SCH ×4 (03:30→21:30)
[2016-10-23] MEDS: CHLORHEXIDINE GLUCONATE 2 % 1 PACK (2 CLOTHS) TOP SCH (04:00)
[2016-10-23 04:04] VITALS: BP 146/73; PULSE 97; RESP 16; TEMP 99.2; O2SAT 95
[2016-10-23] MEDS: SODIUM CHLOR 0.9% 1000 ML INJ 1,000 ML IV SCH ×2 (07:00→20:20)
[2016-10-23 08:00] VITALS: BP 136/71; PULSE 90; RESP 18; TEMP 99.2; O2SAT 93
[2016-10-23] MEDS: ALLOPURINOL 100 MG TAB PO SCH (08:05)
[2016-10-23] MEDS: MORPHINE SULFATE 60 MG CONTROLLED RELEASE TAB PO SCH (08:05)
[2016-10-23] MEDS: clonazePAM 1 MG TAB PO SCH ×2 (08:05→21:53)
[2016-10-23] MEDS: CYCLOBENZAPRINE HCL 10 MG TAB PO SCH ×2 (08:05→21:53)
[2016-10-23] MEDS: MORPHINE SULFATE 30 MG CONTROLLED RELEASE TAB PO SCH (08:06)
[2016-10-23] MEDS: SODIUM CHLORIDE 0.9% FLUSH 5 ML FLUSH IV FLUSH SCH ×2 (09:00→21:54)
[2016-10-23] MEDS: PANTOPRAZOLE SOD 40 MG DELAYED RELEASE TAB PO SCH ×2 (09:00→21:54)
[2016-10-23] MEDS: cloNIDine HCL 0.1 MG TAB PO SCH ×2 (09:00→21:53)
--- NOTE | 2016-10-23 09:22 | HHI.PR ---
Subjective Remarks po intake good- but requesting for regular diet Objective Vitals Vital Signs Date Time Temp Pulse Resp B/P Pulse Ox O2 Delivery O2 Flow Rate FiO2 10/23/16 04:04 99.2 97 16 146/73 95 10/23/16 00:08 99.5 106 16 149/89 95 10/22/16 20:05 100.2 119 17 177/98 98 10/22/16 16:00 97.1 96 18 176/88 95 10/22/16 12:00 99.0 91 18 142/86 97 10/22/16 10:00 81 I/O 10/22/16 10/22/16 10/22/16 10/23/16 10/23/16 10/23/16 07:00 15:00 23:00 07:00 15:00 23:00 Intake Total 860 ml 1260 ml 1969 ml 1302 ml Output Total 1100 ml 1750 ml 2175 ml 1000 ml Balance -240 ml -490 ml -206 ml 302 ml Intake Oral 300 ml 1260 ml 720 ml 480 ml IV Total 560 ml 1249 ml 822 ml Output Urine Total 1100 ml 1750 ml 2175 ml 1000 ml # Bowel Movements 0 0 0 Result Diagram: 10/22/16 0420 10/22/16 0420 Objective Remarks awake and alert, oriented x 3 anicteric, throat erythema lungs clear, no rales or wheezes regular rhythm abdomen soft, nontender extremities no edema no calf tenderness quinn in place neuro exam- non focal Procedures panedoscopy with biopsy and dilatation done - duodenitis, gastritis, esophageal stricture colonoscopy- caecal ulceration Urinary Catheter: Yes Assessment to: Remove Date of Removal: Oct 23, 2016 Vascular Central Line Catheter: Yes Assessment to: Remove Date of Removal: Oct 23, 2016 Side: Right Location: Jugular A/P Assessment and Plan NEURO: Dementia History of EtOH dependence History of polysubstance abuse including recent use of cocaine abuse and remote history of heroin History of chronic pain on chronic pain meds no change in pain regimen CV: History of hypertension Grade 1 diastolic dysfunction Monitor HR and BP keep MAP>65mmHg Received 1 L normal saline in the emergency department and resuscitated with 2 units PRBC. Aspirin and lisinopril on hold GI: Alcoholic Cirrhosis GI bleeding GERD Hepatitis C - S/P EGD/colonoscopy- gastritis,. esophagal stricture, caecal ulceration OP ff up with GI on PPI-- change to po PPI bid ID: no signs of infection now with low grade fever check UA- fresh specimen DC quinn get a CXR - PA and Lateral HEME:s/p Transfusion 2 units PRBC in ED History of pancytopenia secondary to cirrhosis, previously seen by hematology ( Dr. Vaughn). Monitor CBC ENDO: Place on SSI ( low scale) for glycemic control MSK: Gout /OA per patient histopry of RA not on any DMARD- walker History of chronic pain- ff by pain management as OP- Bertram - on Morphine po PT/OT consulted- now states she was supposed to ff up with Orthopedics group- Dr. Rucker for evaluation - we will confirm with Ortho office PROPH: SCDs for DVT prophylaxis. Pharmacologic DVT prophylaxis contraindicated due to GI bleeding. Protonix ACCESS: She has multiple large-bore peripheral IVs DC right IJ access PT/OT consult CM- ideal for SNF home with home health, look into home living situation- has a son requesting for any DME- scooter, commode etc please assist us Melina Parmar MD Oct 23, 2016 09:22
[2016-10-23 11:19] LABS: AUTOMATED NEUTROPHIL # 2.1 TH/MM3 (1.8-7.7); BASOPHIL % 0.6 % (0.0-2.0); EOSINOPHIL # 0.1 TH/MM3 (0-0.4); EOSINOPHIL % 2.6 % (0.0-4.0); LYMPH % 27.2 % (9.0-44.0); MEAN CORPUSCULAR HEMOGLOBIN 28.1 PG (27.0-34.0); MEAN CORPUSCULAR HGB CONC 32.7 % (32.0-36.0); MONO % 14.3 % (0.0-8.0); NEUT % 55.3 % (16.0-70.0); PLATELET COUNT 82 TH/MM3 (150-450); RED BLOOD COUNT 3.84 MIL/MM3 (4.00-5.30); RED CELL DISTRIBUTION WIDTH 19.2 % (11.6-17.2); WHITE BLOOD COUNT 3.8 TH/MM3 (4.0-11.0)
[2016-10-23 11:22] LABS: HEMO FLAGS AUTO DIFF
[2016-10-23 12:00] VITALS: BP 146/88; PULSE 100; RESP 18; TEMP 98.9; O2SAT 94
[2016-10-23 12:04] LABS: PLATELET ESTIMATE SMEAR LOW (NORMAL); PLATELET MORPHOLOGY NORMAL (NORMAL); SCAN/DIFF AUTO DIFF CONFIRMED
--- NOTE | 2016-10-23 14:56 | HHI.GIFU ---
Subjective Remarks Resting in bed. Has a cough, productive with clear phlegm. No difficulty swallowing. No n/v/pain. No rectal bleeding. (Janelle Vyas) Objective Vitals I&O Vital Signs Date Time Temp Pulse Resp B/P Pulse Ox O2 Delivery O2 Flow Rate FiO2 10/23/16 12:00 98.9 100 18 146/88 94 10/23/16 12:00 98.9 100 18 146/88 94 10/23/16 08:00 99.2 90 18 136/71 93 10/23/16 04:04 99.2 97 16 146/73 95 10/23/16 00:08 99.5 106 16 149/89 95 10/22/16 20:05 100.2 119 17 177/98 98 10/22/16 16:00 97.1 96 18 176/88 95 I/O 10/22/16 10/22/16 10/22/16 10/23/16 10/23/16 10/23/16 07:00 15:00 23:00 07:00 15:00 23:00 Intake Total 860 ml 1260 ml 1969 ml 1302 ml 1200 ml Output Total 1100 ml 1750 ml 2175 ml 1000 ml 600 ml Balance -240 ml -490 ml -206 ml 302 ml 600 ml Intake Oral 300 ml 1260 ml 720 ml 480 ml 1200 ml IV Total 560 ml 1249 ml 822 ml Output Urine Total 1100 ml 1750 ml 2175 ml 1000 ml 600 ml # Bowel Movements 0 0 0 0 Laboratory Laboratory Tests Test 10/23/16 11:03 White Blood Count 3.8 Red Blood Count 3.84 Hemoglobin 10.8 Hematocrit 33.0 Mean Corpuscular Volume 86.0 Mean Corpuscular Hemoglobin 28.1 Mean Corpuscular Hemoglobin 32.7 Concent Red Cell Distribution Width 19.2 Platelet Count 82 Mean Platelet Volume 9.1 Neutrophils (%) (Auto) 55.3 Lymphocytes (%) (Auto) 27.2 Monocytes (%) (Auto) 14.3 Eosinophils (%) (Auto) 2.6 Basophils (%) (Auto) 0.6 Neutrophils # (Auto) 2.1 Lymphocytes # (Auto) 1.0 Monocytes # (Auto) 0.5 Eosinophils # (Auto) 0.1 Basophils # (Auto) 0.0 CBC Comment AUTO DIFF Differential Comment AUTO DIFF CONFIRMED Platelet Estimate LOW Platelet Morphology Comment NORMAL Physical Exam HEENT: Normocephalic; atraumatic; no jaundice. CHEST: CTA. CARDIAC: RRR ABDOMEN: Soft, nondistended, nontender; no hepatosplenomegaly; bowel sounds are present in all four quadrants. EXTREMITIES: No clubbing, cyanosis, or edema. SKIN: Normal; no rash; no jaundice. LEADER ASSEMBLER: No focal deficits; alert and oriented times three. (Janelle Vyas) Assessment and Plan Plan ASSESSMENT: - GIB. S/P EGD/Colonoscopy (10/21/15)------> distal esophageal stricture, s/p dilatation, mild gastritis, large ulcerated area in the cecum, possible ischemic vs ulcerated lesion, severe diverticulosis throughout the colon, no active bleeding. Pathology pending. No further bleeding. 33.0. - Large ulcerated area in cecum, pathology pending. No active bleeding - Gastritis, mild. PPI - Esophageal stricture, s/p dilatation. No difficulty swallowing. - Anemia due to blood loss. .0. PLAN: - RAY - Await pathology - PPI - Monitor HH - Transfuse as necessary - Supportive care - Further recommendations to follow based on results of above - Pt seen and examined by Dr. Varela and myself and this note is written on his behalf (Janelle Vyas) Physician Comments Patient was seen and examined, agree with above note and plan, Bx showed ischemic colon, she will need colonoscopy in 2 months, advanced diet, ok to DC home from GI, we will sign off. (Jaime Varela MD) Janelle Vyas Oct 23, 2016 14:56 Jaime Varela MD Oct 23, 2016 20:31
[2016-10-23 15:53] VITALS: BP 126/69; PULSE 95; RESP 19; TEMP 98.6; O2SAT 93
[2016-10-23 19:02] LABS: BLOOD, URINE NEG (NEG); COMMENT (UR) CULT NOT INDICATED; CULTURE IF INDICATED CULT NOT INDICATED; GLUCOSE,URINE NEG (NEG); KETONE, URINE NEG (NEG); MUCUS URINE FEW /lpf (OCC); NITRITE,URINE NEG (NEG); SQUAMOUS EPITHELIAL CELL URINE 1 /hpf (0-5); URINE COLOR YELLOW (YELLW/STRAW)
[2016-10-23 21:38] VITALS: BP 139/75; PULSE 99; RESP 18; TEMP 99.2; O2SAT 95
[2016-10-23] MEDS: DONEPEZIL HCL 5 MG TAB PO SCH (21:54)
[2016-10-24] VITALS: BP 142/70; PULSE 88; RESP 18; TEMP 98.7; O2SAT 95
[2016-10-24] MEDS: INSULIN NovoLIN REGULAR SUPPLEMENTAL SCALE SQ SCH ×3 (03:30→22:04)
[2016-10-24 04:00] VITALS: BP 136/72; PULSE 89; RESP 18; TEMP 98.7; O2SAT 96
[2016-10-24] MEDS: CHLORHEXIDINE GLUCONATE 2 % 1 PACK (2 CLOTHS) TOP SCH (04:00)
[2016-10-24 08:00] VITALS: BP 151/84; PULSE 83; RESP 18; TEMP 98.6; O2SAT 95
--- NOTE | 2016-10-24 08:31 | HHI.PR ---
Subjective Remarks dry cough, feels congested no dysuria, no diarrhea afebrile Objective Vitals Vital Signs Date Time Temp Pulse Resp B/P Pulse Ox O2 Delivery O2 Flow Rate FiO2 10/24/16 04:00 98.7 89 18 136/72 96 10/24/16 00:00 98.7 88 18 142/70 95 10/23/16 21:38 99.2 99 18 139/75 95 10/23/16 15:53 98.6 95 19 126/69 93 10/23/16 12:00 98.9 100 18 146/88 94 10/23/16 12:00 98.9 100 18 146/88 94 I/O 10/23/16 10/23/16 10/23/16 10/24/16 10/24/16 10/24/16 07:00 15:00 23:00 07:00 15:00 23:00 Intake Total 1302 ml 1200 ml 700 ml 600 ml Output Total 1000 ml 600 ml Balance 302 ml 600 ml 700 ml 600 ml Intake Oral 480 ml 1200 ml 700 ml 600 ml IV Total 822 ml Output Urine Total 1000 ml 600 ml # Voids 2 3 # Bowel Movements 0 0 3 0 Result Diagram: 10/23/16 1103 10/22/16 0420 Objective Remarks awake and alert, oriented x 3 anicteric, throat no exudates or erythema right neck- central line in place lungs clear, no rales or wheezes regular rhythm abdomen soft, nontender extremities no edema no calf tenderness neuro exam- non focal Procedures panedoscopy with biopsy and dilatation done - duodenitis, gastritis, esophageal stricture colonoscopy- caecal ulceration Date of Removal: Oct 23, 2016 Date of Removal: Oct 23, 2016 Side: Right Location: Jugular A/P Assessment and Plan NEURO: Dementia History of EtOH dependence History of polysubstance abuse including recent use of cocaine abuse and remote history of heroin History of chronic pain on chronic pain meds no change in pain regimen CV: History of hypertension Grade 1 diastolic dysfunction Monitor HR and BP keep MAP>65mmHg Received 1 L normal saline in the emergency department and resuscitated with 2 units PRBC. Aspirin and lisinopril on hold GI: Alcoholic Cirrhosis GI bleeding GERD Hepatitis C - S/P EGD/colonoscopy- gastritis,. esophagal stricture, caecal ulceration OP ff up with GI on PPI-- po bid ID: no signs of infection, minimal dry cough HEME:s/p Transfusion 2 units PRBC in ED History of pancytopenia secondary to cirrhosis, previously seen by hematology ( Dr. Vaughn). Monitor CBC ENDO: Place on SSI ( low scale) for glycemic control MSK: Gout /OA per patient history of RA not on any DMARD- walker History of chronic pain- ff by pain management as OP- Bertram - on Morphine po PT/OT consulted- now states she was supposed to ff up with Orthopedics group- Dr. Rucker for evaluation - we will confirm with Ortho office PROPH: SCDs for DVT prophylaxis. Pharmacologic DVT prophylaxis contraindicated due to GI bleeding. Protonix ACCESS: She has multiple large-bore peripheral IVs DC right IJ access PT/OT consult CM- ideal for SNF home with home health, look into home living situation- has a son requesting for any DME- scooter, commode etc please assist us Melina Parmar MD Oct 24, 2016 08:31 Melina Parmar MD Oct 24, 2016 08:31
[2016-10-24] MEDS: clonazePAM 1 MG TAB PO SCH ×2 (09:20→22:01)
[2016-10-24] MEDS: cloNIDine HCL 0.1 MG TAB PO SCH ×2 (09:20→22:01)
[2016-10-24] MEDS: ALLOPURINOL 100 MG TAB PO SCH (09:20)
[2016-10-24] MEDS: PANTOPRAZOLE SOD 40 MG DELAYED RELEASE TAB PO SCH ×2 (09:20→22:00)
[2016-10-24] MEDS: CYCLOBENZAPRINE HCL 10 MG TAB PO SCH ×2 (09:20→22:01)
[2016-10-24] MEDS: MORPHINE SULFATE 60 MG CONTROLLED RELEASE TAB PO SCH (09:21)
[2016-10-24] MEDS: MORPHINE SULFATE 30 MG CONTROLLED RELEASE TAB PO SCH (09:21)
[2016-10-24] MEDS: SODIUM CHLORIDE 0.9% FLUSH 5 ML FLUSH IV FLUSH SCH ×2 (09:28→22:01)
[2016-10-24] MEDS: SODIUM CHLOR 0.9% 1000 ML INJ 1,000 ML IV SCH ×2 (09:40→23:00)
[2016-10-24 12:00] VITALS: BP 139/93; PULSE 83; RESP 18; TEMP 98.9; O2SAT 95
--- NOTE | 2016-10-24 13:12 | RADRPT ---
EXAM DATE/TIME: 10/24/2016 10:08 [facility] COMPARISON: No previous studies available for comparison. INDICATIONS : Fever, short of breath, congestion MEDICAL HISTORY : GI bleed, pneumonia SURGICAL HISTORY : None. ENCOUNTER: Subsequent ACUITY: 3 days PAIN SCORE: 0/10 LOCATION: Bilateral chest FINDINGS: PA and lateral views of the chest demonstrate minimal basilar atelectasis or scarring. Cardiomegaly. No effusions. No pneumothorax. CONCLUSION: 1. Minimal basilar atelectasis or scarring. Cardiomegaly. Mildly tortuous aorta. No pneumothorax. Anibal Henley MD on October 24, 2016 at 13:08 Board Certified Radiologist. This report was verified electronically.
[2016-10-24 16:00] VITALS: BP 136/82; PULSE 79; RESP 18; TEMP 99.1; O2SAT 93
[2016-10-24 20:00] VITALS: BP 117/63; PULSE 82; RESP 18; TEMP 97.9; O2SAT 95
[2016-10-24] MEDS: DONEPEZIL HCL 5 MG TAB PO SCH (22:00)
[2016-10-25] VITALS: BP 135/72; PULSE 80; RESP 16; TEMP 98.8; O2SAT 95
[2016-10-25] MEDS: CHLORHEXIDINE GLUCONATE 2 % 1 PACK (2 CLOTHS) TOP SCH (04:00)
[2016-10-25 06:44] VITALS: PULSE 98; RESP 20; TEMP 97.4; O2SAT 96
[2016-10-25] MEDS: INSULIN NovoLIN REGULAR SUPPLEMENTAL SCALE SQ SCH ×3 (06:56→17:56)
[2016-10-25 08:00] VITALS: BP 140/84; PULSE 82; RESP 20; TEMP 98.2; O2SAT 94
[2016-10-25] MEDS: ALLOPURINOL 100 MG TAB PO SCH (08:57)
[2016-10-25] MEDS: clonazePAM 1 MG TAB PO SCH ×2 (08:57→21:41)
[2016-10-25] MEDS: MORPHINE SULFATE 60 MG CONTROLLED RELEASE TAB PO SCH (08:57)
[2016-10-25] MEDS: cloNIDine HCL 0.1 MG TAB PO SCH ×2 (08:57→21:41)
[2016-10-25] MEDS: PANTOPRAZOLE SOD 40 MG DELAYED RELEASE TAB PO SCH ×2 (08:58→21:41)
[2016-10-25] MEDS: CYCLOBENZAPRINE HCL 10 MG TAB PO SCH ×2 (08:58→21:41)
[2016-10-25] MEDS: MORPHINE SULFATE 30 MG CONTROLLED RELEASE TAB PO SCH (08:58)
[2016-10-25] MEDS: SODIUM CHLORIDE 0.9% FLUSH 5 ML FLUSH IV FLUSH SCH ×2 (08:59→21:41)
[2016-10-25] MEDS ORDERED: MISC-163 (11:36)
--- NOTE | 2016-10-25 11:39 | HHI.FF ---
Face to Face Verification Diagnosis: (1) Hypertension (2) wekaness Physical Therapy Order: Evaluate and Treat, Improve ambulation Occupational Therapy Order: Evaluate and Treat, Improve ADL Speech Therapy Order: To Improve: Cognitive skills Home Health Nursing Order: Medical education Signs/symptoms of disease process Nursing assessment with vital signs Home Health Aide Order: To Assist In: can sterilizer and meal prep Weatherseal Technician Order: To Evaluate: Living conditions/environment, Support services I have seen patient Michelle Nolasco on 10/25/16. My clinical findings support the need for the requested home health care services because: Ltd mobility - disease progression Deconditioned w/ increased weakness I certify that my clinical findings support that this patient is homebound because: Unsteady gait/balance Need for psychosocial assistance Melina Parmar MD Oct 25, 2016 11:38
[2016-10-25 12:00] VITALS: BP 140/80; PULSE 87; RESP 19; TEMP 97.8; O2SAT 95
[2016-10-25] MEDS: SODIUM CHLOR 0.9% 1000 ML INJ 1,000 ML IV SCH (12:20)
--- NOTE | 2016-10-25 12:20 | HHI.PR ---
Subjective Remarks no complains awake and alert minimal cough- dry- encourage her to take deep breaths and do incetive spirometry- increase activity Objective Vitals Vital Signs Date Time Temp Pulse Resp B/P Pulse Ox O2 Delivery O2 Flow Rate FiO2 10/25/16 08:00 98.2 82 20 140/84 94 10/25/16 06:44 97.4 98 20 96 10/25/16 00:00 98.8 80 16 135/72 95 10/24/16 20:00 97.9 82 18 117/63 95 10/24/16 16:00 99.1 79 18 136/82 93 I/O 10/24/16 10/24/16 10/24/16 10/25/16 10/25/16 10/25/16 07:00 15:00 23:00 07:00 15:00 23:00 Intake Total 600 ml 1265 ml 480 ml 480 ml Balance 600 ml 1265 ml 480 ml 480 ml Intake Oral 600 ml 1265 ml 480 ml 480 ml # Voids 3 4 2 4 # Bowel Movements 0 1 2 0 Result Diagram: 10/23/16 1103 10/22/16 0420 Imaging Last Impressions Chest X-Ray 10/24/16 0000 Signed Impressions: Service Date/Time: Monday, October 24, 2016 10:08 - CONCLUSION: 1. Minimal basilar atelectasis or scarring. Cardiomegaly. Mildly tortuous aorta. No pneumothorax. Anibal Henley MD Objective Remarks awake and alert, oriented x 3 anicteric, throat no exudates or erythema thorat- no exrythema, no exudates lungs clear, no rales or wheezes regular rhythm abdomen soft, nontender extremities no edema no calf tenderness neuro exam- non focal Procedures panedoscopy with biopsy and dilatation done - duodenitis, gastritis, esophageal stricture colonoscopy- caecal ulceration Date of Removal: Oct 23, 2016 Date of Removal: Oct 23, 2016 Side: Right Location: Jugular A/P Assessment and Plan NEURO: Dementia History of EtOH dependence History of polysubstance abuse including recent use of cocaine abuse and remote history of heroin History of chronic pain on chronic pain meds no change in pain regimen CV: History of hypertension Grade 1 diastolic dysfunction Monitor HR and BP keep MAP>65mmHg Received 1 L normal saline in the emergency department and resuscitated with 2 units PRBC. Aspirin and lisinopril on hold GI: Alcoholic Cirrhosis GI bleeding GERD Hepatitis C - S/P EGD/colonoscopy- gastritis,. esophageal stricture, caecal ulceration OP ff up with GI on PPI-- po bid ID: no fever UA 5 WBC CXR atelectasis encourage IS efforts Ciprofloxacin 500 mg po bid HEME:s/p Transfusion 2 units PRBC in ED History of pancytopenia secondary to cirrhosis, previously seen by hematology ( Dr. Vaughn). Monitor CBC OP ff up with PCP ENDO: Place on SSI ( low scale) for glycemic control MSK: Gout /OA per patient history of RA not on any DMARD- walker History of chronic pain- ff by pain management as OP- Bertram - on Morphine po PT/OT consulted- now states she was supposed to ff up with Orthopedics group- Dr. Rucker for evaluation - PROPH: SCDs for DVT prophylaxis. Pharmacologic DVT prophylaxis contraindicated due to GI bleeding. Protonix Encourage to be out of bed more CM consult will benefirt from short term rehab then home with home health, look into home living situation- has a son requesting for any DME- , commode - done, Scooter- per CM through PCP etc Melina Parmar MD Oct 25, 2016 12:20
[2016-10-25] MEDS ORDERED: PANT40TA3 PO (12:23)
[2016-10-25] MEDS ORDERED: CIPR-9 PO (12:38)
[2016-10-25] MEDS: CIPROFLOXACIN 500 MG TAB PO SCH ×2 (13:51→21:41)
[2016-10-25 16:00] VITALS: BP 150/94; PULSE 82; RESP 18; TEMP 98.4; O2SAT 100
[2016-10-25 20:05] VITALS: BP 136/84; PULSE 90; RESP 17; TEMP 98.4; O2SAT 93
[2016-10-25] MEDS: DONEPEZIL HCL 5 MG TAB PO SCH (21:41)
[2016-10-26] VITALS: BP 141/83; PULSE 87; RESP 17; TEMP 98.3; O2SAT 95
[2016-10-26] MEDS: CHLORHEXIDINE GLUCONATE 2 % 1 PACK (2 CLOTHS) TOP SCH (00:26)
[2016-10-26] MEDS: INSULIN NovoLIN REGULAR SUPPLEMENTAL SCALE SQ SCH ×4 (00:54→18:32)
[2016-10-26 08:00] VITALS: BP 143/90; PULSE 80; RESP 18; TEMP 98.1; O2SAT 96
[2016-10-26] MEDS: CIPROFLOXACIN 500 MG TAB PO SCH ×2 (08:25→21:18)
[2016-10-26] MEDS: PANTOPRAZOLE SOD 40 MG DELAYED RELEASE TAB PO SCH ×2 (08:25→21:18)
[2016-10-26] MEDS: clonazePAM 1 MG TAB PO SCH ×2 (08:25→21:20)
[2016-10-26] MEDS: cloNIDine HCL 0.1 MG TAB PO SCH ×2 (08:25→21:18)
[2016-10-26] MEDS: MORPHINE SULFATE 30 MG CONTROLLED RELEASE TAB PO SCH (08:25)
[2016-10-26] MEDS: CYCLOBENZAPRINE HCL 10 MG TAB PO SCH ×2 (08:25→21:18)
[2016-10-26] MEDS: MORPHINE SULFATE 60 MG CONTROLLED RELEASE TAB PO SCH (08:25)
[2016-10-26] MEDS: ALLOPURINOL 100 MG TAB PO SCH (08:25)
[2016-10-26] MEDS: SODIUM CHLORIDE 0.9% FLUSH 5 ML FLUSH IV FLUSH SCH ×2 (08:26→21:00)
[2016-10-26 12:00] VITALS: BP 127/69; PULSE 78; RESP 18; TEMP 98.1; O2SAT 94
--- NOTE | 2016-10-26 12:41 | HHI.PR ---
Subjective Remarks patient feels stronger apparently having family issues- specifically with her son denies any pain, nausea or vomiting voiding spontaneously Objective Vitals Vital Signs Date Time Temp Pulse Resp B/P Pulse Ox O2 Delivery O2 Flow Rate FiO2 10/26/16 08:00 98.1 80 18 143/90 96 10/26/16 00:00 98.3 87 17 141/83 95 10/25/16 20:05 98.4 90 17 136/84 93 10/25/16 16:00 98.4 82 18 150/94 100 I/O 10/25/16 10/25/16 10/25/16 10/26/16 10/26/16 10/26/16 07:00 15:00 23:00 07:00 15:00 23:00 Intake Total 480 ml 960 ml 720 ml 720 ml Balance 480 ml 960 ml 720 ml 720 ml Intake Oral 480 ml 960 ml 720 ml 720 ml # Voids 4 4 2 1 # Bowel Movements 0 2 0 0 Result Diagram: 10/23/16 1103 10/22/16 0420 Imaging Last Impressions Chest X-Ray 10/24/16 0000 Signed Impressions: Service Date/Time: Monday, October 24, 2016 10:08 - CONCLUSION: 1. Minimal basilar atelectasis or scarring. Cardiomegaly. Mildly tortuous aorta. No pneumothorax. Anibal Henley MD Objective Remarks awake and alert, oriented x 3 anicteric, throat no exudates or erythema throat- no erythema, no exudates lungs clear, no rales or wheezes regular rhythm abdomen soft, nontender extremities no edema no calf tenderness neuro exam- non focal Procedures panedoscopy with biopsy and dilatation done - duodenitis, gastritis, esophageal stricture colonoscopy- caecal ulceration Date of Removal: Oct 23, 2016 Date of Removal: Oct 23, 2016 Side: Right Location: Jugular A/P Assessment and Plan NEURO: Dementia History of EtOH dependence History of polysubstance abuse including recent use of cocaine abuse and remote history of heroin History of chronic pain on chronic pain meds no change in pain regimen CV: History of hypertension Grade 1 diastolic dysfunction Monitor HR and BP keep MAP>65mmHg Received 1 L normal saline in the emergency department and resuscitated with 2 units PRBC. Aspirin and lisinopril on hold GI: Alcoholic Cirrhosis GI bleeding GERD Hepatitis C - S/P EGD/colonoscopy- gastritis,. esophageal stricture, caecal ulceration OP ff up with GI on PPI-- po bid ID: no fever UA 5 WBC CXR atelectasis encourage IS efforts Ciprofloxacin 500 mg po bid x 3 days HEME:s/p Transfusion 2 units PRBC in ED History of pancytopenia secondary to cirrhosis, previously seen by hematology ( Dr. Vaughn). Monitor CBC OP ff up with PCP ENDO: Place on SSI ( low scale) for glycemic control MSK: Gout /OA per patient history of RA not on any DMARD- walker History of chronic pain- ff by pain management as OP- Bertram - on Morphine po PT/OT consulted- now states she was supposed to ff up with Orthopedics group- Dr. Rucker for evaluation - PROPH: SCDs for DVT prophylaxis. Pharmacologic DVT prophylaxis contraindicated due to GI bleeding. Protonix Encourage to be out of bed more CM consult look into home living situation- has a son requesting for any DME- , commode - done, Scooter- per CM through PCP etc DC home tomorro w with home health care nursing d/w patient- agrees Melina Parmar MD Oct 26, 2016 12:41
--- NOTE | 2016-10-26 12:42 | HHI.FF ---
Face to Face Verification Diagnosis: (1) Dehydration (2) UTI (urinary tract infection) (3) DISHA (acute kidney injury) (4) GI bleed Physical Therapy Order: Evaluate and Treat, Improve ambulation, Strength and gait training Occupational Therapy Order: Improve ADL Home Health Nursing Order: Medical education Signs/symptoms of disease process Medication education-adverse effect Home Health Aide Order: To Assist In: Bathing and personal care Nocturnist Order: To Evaluate: Living conditions/environment, Support services I have seen patient Michelle Nolasco on 10/26/16. My clinical findings support the need for the requested home health care services because: Deconditioned w/ increased weakness Need for psychosocial assistance I certify that my clinical findings support that this patient is homebound because: Need for psychosocial assistance Melina Parmar MD Oct 26, 2016 12:42
[2016-10-26 16:00] VITALS: BP 131/80; PULSE 75; RESP 18; TEMP 98; O2SAT 96
[2016-10-26] MEDS: DONEPEZIL HCL 5 MG TAB PO SCH (21:18)
[2016-10-26 21:45] VITALS: BP 130/75; PULSE 89; RESP 17; TEMP 98.2; O2SAT 94
[2016-10-27 00:40] VITALS: BP 103/62; PULSE 80; RESP 18; TEMP 97.8; O2SAT 93
[2016-10-27] MEDS: INSULIN NovoLIN REGULAR SUPPLEMENTAL SCALE SQ SCH ×2 (01:00→06:15)
[2016-10-27] MEDS: CHLORHEXIDINE GLUCONATE 2 % 1 PACK (2 CLOTHS) TOP SCH (03:08)
[2016-10-27 07:58] VITALS: BP 172/90; PULSE 80; RESP 18; TEMP 97.6; O2SAT 95
--- NOTE | 2016-10-27 08:50 | HHI.PR ---
Subjective Remarks feeling emotionally stronger and physically more motivated denies any shortness of breath or pain no swallowing difficulties Objective Vitals Vital Signs Date Time Temp Pulse Resp B/P Pulse Ox O2 Delivery O2 Flow Rate FiO2 10/27/16 07:58 97.6 80 18 172/90 95 10/27/16 00:40 97.8 80 18 103/62 93 10/26/16 21:45 98.2 89 17 130/75 94 10/26/16 16:00 98.0 75 18 131/80 96 10/26/16 12:00 98.1 78 18 127/69 94 I/O 10/26/16 10/26/16 10/26/16 10/27/16 10/27/16 10/27/16 07:00 15:00 23:00 07:00 15:00 23:00 Intake Total 720 ml 1200 ml 480 ml 240 ml Balance 720 ml 1200 ml 480 ml 240 ml Intake Oral 720 ml 1200 ml 480 ml 240 ml # Voids 1 4 1 1 # Bowel Movements 0 0 0 0 Result Diagram: 10/23/16 1103 Imaging Last Impressions Chest X-Ray 10/24/16 0000 Signed Impressions: Service Date/Time: Monday, October 24, 2016 10:08 - CONCLUSION: 1. Minimal basilar atelectasis or scarring. Cardiomegaly. Mildly tortuous aorta. No pneumothorax. Anibal Henley MD Objective Remarks awake and alert, oriented x 3 anicteric, throat no exudates or erythema throat- no erythema, no exudates lungs clear, no rales or wheezes regular rhythm abdomen soft, nontender extremities no edema no calf tenderness neuro exam-unremarkable Procedures panedoscopy with biopsy and dilatation done - duodenitis, gastritis, esophageal stricture colonoscopy- caecal ulceration Date of Removal: Oct 23, 2016 Date of Removal: Oct 23, 2016 Side: Right Location: Jugular A/P Assessment and Plan NEURO: Dementia History of EtOH dependence History of polysubstance abuse including recent use of cocaine abuse and remote history of heroin History of chronic pain on chronic pain meds- very moitvated to abstain no change in pain regimen CV: History of hypertension Grade 1 diastolic dysfunction Monitor HR and BP keep MAP>65mmHg Received 1 L normal saline in the emergency department and resuscitated with 2 units PRBC. Aspirin and lisinopril on hold GI: Alcoholic Cirrhosis GI bleeding GERD Hepatitis C - S/P EGD/colonoscopy- gastritis,. esophageal stricture, caecal ulceration OP ff up with GI on PPI-- po bid ID: no fever UA 5 WBC CXR atelectasis encourage IS efforts Ciprofloxacin 500 mg po bid x 3 days HEME:s/p Transfusion 2 units PRBC in ED History of pancytopenia secondary to cirrhosis, previously seen by hematology ( Dr. Vaughn). Monitor CBC OP ff up with PCP ENDO: Place on SSI ( low scale) for glycemic control MSK: Gout /OA per patient history of RA not on any DMARD- walker History of chronic pain- ff by pain management as OP- Bertram - on Morphine po PT/OT consulted- now states she was supposed to ff up with Orthopedics group- Dr. Rucker for evaluation - PROPH: SCDs for DVT prophylaxis. Pharmacologic DVT prophylaxis contraindicated due to GI bleeding. Protonix Encourage to be out of bed more CM consult look into home living situation- has a son requesting for any DME- , commode - done, Scooter- per CM through PCP etc DC home today with home health care nursing d/w patient- agrees- she will ff up with her PCP- Dr. Peterson and call for Melina Alvarez MD Oct 27, 2016 08:50
--- NOTE | 2016-10-27 08:56 | HHI.DS ---
Discharge Summary Admission Date Oct 20, 2016 at 19:25 Discharge Date: Oct 27, 2016 Admitting Diagnosis gi bleed (1) GI bleed ICD Code: K92.2 Diagnosis: Principal (2) Substance abuse ICD Code: F19.10 Diagnosis: Secondary Procedures panedoscopy with biopsy and dilatation done - duodenitis, gastritis, esophageal stricture colonoscopy- caecal ulceration Brief History - From Admission 66-year-old female with past medical history of hypertension, hepatitis C, polysubstance abuse, prior alcohol dependence, cirrhosis who presents to [facility] with GI bleeding. She states that she has been feeling weak, dizzy, and fatigued all day. She states that she had a syncopal event about one hour prior to arrival. She has had multiple bloody bowel movements (approximately 6) and has passed dark clots. Denies any nausea vomiting or hematemesis. Denies abdominal pain other than some cramping that occurred right before she had her first bowel movement. No fevers or chills. She does state that she takes ibuprofen about twice a week. She has a prior history of long-term alcohol abuse drinking a pint a day for most of her life but states that she quit in August 2016. She denies known history of varices. She has had prior GI bleeding in 2012 and had a colonoscopy with poor prep. She then refused colon prep and refused repeat colonoscopy. Upon arrival to the emergency department her heart rate was in the 130s and blood pressure was 93/59 MAP 70. Multiple large bore peripheral IVs were placed. She was transfused 2 units of emergency release packed red cells. Subsequently heart rate 90-100s and BP 117/67 Hemoglobin was 13.7. Platelets and Coags are normal. CBC/BMP: 10/23/16 1103 Imaging Last Impressions Chest X-Ray 10/24/16 0000 Signed Impressions: Service Date/Time: Monday, October 24, 2016 10:08 - CONCLUSION: 1. Minimal basilar atelectasis or scarring. Cardiomegaly. Mildly tortuous aorta. No pneumothorax. Anibal Henley MD PE at Discharge awake and alert, oriented x 3 anicteric, throat no exudates or erythema throat- no erythema, no exudates lungs clear, no rales or wheezes regular rhythm abdomen soft, nontender extremities no edema no calf tenderness neuro exam-unremarkable Pt update on day of discharge no pain complains- no abdominal pain, no difficulty swallowing, good brown BM admits to history of substance abuse but very motivated we disucss about some family situations- spec her son- Hospital Course Dementia History of EtOH dependence History of polysubstance abuse including recent use of cocaine abuse and remote history of heroin History of chronic pain on chronic pain meds- very moitvated to abstain no change in pain regimen CV: History of hypertension Grade 1 diastolic dysfunction Monitor HR and BP keep MAP>65mmHg Received 1 L normal saline in the emergency department and resuscitated with 2 units PRBC. Aspirin and lisinopril on hold GI: Alcoholic Cirrhosis GI bleeding GERD Hepatitis C - S/P EGD/colonoscopy- gastritis,. esophageal stricture, caecal ulceration OP ff up with GI on PPI-- po bid ID: no fever UA 5 WBC CXR atelectasis encourage IS efforts Ciprofloxacin 500 mg po bid x 3 days HEME:s/p Transfusion 2 units PRBC in ED History of pancytopenia secondary to cirrhosis, previously seen by hematology ( Dr. Vaughn). Monitor CBC OP ff up with PCP ENDO: Place on SSI ( low scale) for glycemic control MSK: Gout /OA per patient history of RA not on any DMARD- walker History of chronic pain- ff by pain management as OP- Bertram - on Morphine po PT/OT consulted- now states she was supposed to ff up with Orthopedics group- Dr. Rucker for evaluation - PROPH: SCDs for DVT prophylaxis. Pharmacologic DVT prophylaxis contraindicated due to GI bleeding. Protonix Encourage to be out of bed more CM consult look into home living situation- has a son requesting for any DME- , commode - done, Scooter- per CM through PCP etc DC home today with home health care nursing d/w patient- agrees- she will ff up with her PCP- Dr. Peterson and call for appt Pt Condition on Discharge: Stable Discharge Disposition: Disch w/ Home Health Serv Discharge Time: <= 30 minutes Discharge Instructions DIET: Follow Instructions for: As Tolerated, No Restrictions, Heart Healthy Diet Activities you can perform: Weight Bearing as [place] Follow up Referrals: Gastroenterology - 4 Weeks with Jaime Varela MD PCP Follow-up - 10/30/16 with [facility] New Medications: 3-in-1 Bedside Toilet (3-in-1 Bedside Toilet) 1 Mis Mis 1 EA .ROUTE DIRECTED activi #1 EA Ciprofloxacin (Cipro) 500 Mg Tab 500 MG PO Q12HR Infection #5 TAB Pantoprazole (Pantoprazole) 40 Mg Tab 40 MG PO Q12HR GI #60 Ref 1 TAB Continued Medications: Albuterol 18 GM Inh (Ventolin Hfa 18 GM Inh) 90 Mcg/Act Aer 2 PUFF INH Q6H PRN SHORTNESS OF BREATH #1 Ref 0 INHALER Allopurinol (Allopurinol) 100 Mg Tab 100 MG PO DAILY Gout #30 Ref 0 TAB Clonazepam (Clonazepam) 1 Mg Tab 1 MG PO BID #60 Ref 0 TAB Clonidine (Clonidine) 0.1 Mg Tab 0.1 MG PO BID Blood Pressure Management #60 Ref 1 TAB Cyclobenzaprine (Flexeril) 10 Mg Tab 10 MG PO BID Muscle Spasm #90 Ref 0 TAB Donepezil (Donepezil) 10 Mg Tab 10 MG PO HS Dementia #30 Ref 0 TAB Morphine ER (Morphine ER) 30 Mg Tab 30 MG PO DAILY IN THE AM Pain Management Ref 0 TAB Morphine ER (Morphine ER) 60 Mg Tab 60 MG PO DAILY IN THE PM Pain Management Ref 0 TAB Discontinued Medications: Aspirin DR (Aspirin EC) 81 Mg Tabdr 81 MG PO DAILY heart #30 TAB Hydromorphone (Hydromorphone) 8 Mg Tab 8 MG PO QID Pain Management Ref 0 TAB Lisinopril (Lisinopril) 20 Mg Tab 20 MG PO DAILY Resume lisinopril 20mg daily (taking the medication you have at home is okay) #30 Ref 0 TAB Pantoprazole (Protonix) 40 Mg Tab 40 MG PO DAILY Reflux #30 Ref 0 TAB Melina Parmar MD Oct 27, 2016 08:56
[2016-10-27] MEDS: SODIUM CHLORIDE 0.9% FLUSH 5 ML FLUSH IV FLUSH SCH (09:00)
[2016-10-27] MEDS: CIPROFLOXACIN 500 MG TAB PO SCH (09:00)
[2016-10-27] MEDS: cloNIDine HCL 0.1 MG TAB PO SCH (09:16)
[2016-10-27] MEDS: PANTOPRAZOLE SOD 40 MG DELAYED RELEASE TAB PO SCH (09:16)
[2016-10-27] MEDS: ALLOPURINOL 100 MG TAB PO SCH (09:17)
[2016-10-27] MEDS: MORPHINE SULFATE 60 MG CONTROLLED RELEASE TAB PO SCH (09:17)
[2016-10-27] MEDS: CYCLOBENZAPRINE HCL 10 MG TAB PO SCH (09:17)
[2016-10-27] MEDS: clonazePAM 1 MG TAB PO SCH (09:17)
[2016-10-27] MEDS: MORPHINE SULFATE 30 MG CONTROLLED RELEASE TAB PO SCH (09:18)
[2016-10-27] MEDS ORDERED: INFLUENZA VIRUS VACCINE (QUADRIVALENT) 0.5 ML SYR IM ONE (10:00)
[2016-10-27 12:00] VITALS: BP 119/61; PULSE 86; RESP 18; TEMP 98; O2SAT 96
== END 2016-10-27 14:26 | disposition home health service (06) | DRG 378 ==
LOC: NEPC 17:16 → NEDA 19:25 → HIMN 23:23 → N06B 10-22 10:48
PROVIDERS: ADMIT Internal Medicine; ATTEND Internal Medicine
PROC: 30233N1 Transfusion of Nonautologous Red Blood Cells into Peripheral Vein, Percutaneous Approach (ICD-10-PCS; 2016-10-20)
PROC: 0DBH8ZX Excision of Cecum, Via Natural or Artificial Opening Endoscopic, Diagnostic (ICD-10-PCS; 2016-10-21)
PROC: 0DB68ZX Excision of Stomach, Via Natural or Artificial Opening Endoscopic, Diagnostic (ICD-10-PCS; principal; 2016-10-21 15:19)
PROC: 0D758ZZ Dilation of Esophagus, Via Natural or Artificial Opening Endoscopic (ICD-10-PCS; 2016-10-21 15:19)
DX: K92.2 Gastrointestinal hemorrhage, unspecified (principal); K55.9 Vascular disorder of intestine, unspecified; K63.3 Ulcer of intestine; F03.90 Unspecified dementia, unspecified severity, without behavioral disturbance, psychotic disturbance, mood disturbance, and anxiety; D50.0 Iron deficiency anemia secondary to blood loss (chronic); I10 Essential (primary) hypertension; F17.210 Nicotine dependence, cigarettes, uncomplicated; J98.11 Atelectasis; K70.30 Alcoholic cirrhosis of liver without ascites; F19.10 Other psychoactive substance abuse, uncomplicated; K22.2 Esophageal obstruction; R55 Syncope and collapse; B19.20 Unspecified viral hepatitis C without hepatic coma; Z79.899 Other long term (current) drug therapy; K29.70 Gastritis, unspecified, without bleeding; K57.90 Diverticulosis of intestine, part unspecified, without perforation or abscess without bleeding; Z23 Encounter for immunization; Z79.82 Long term (current) use of aspirin; M10.9 Gout, unspecified; M06.9 Rheumatoid arthritis, unspecified; K21.9 Gastro-esophageal reflux disease without esophagitis
CPT/HCPCS: 36430; 71020; 80048; 80053; 80307; 81001; 82948; 83735; 84100; 84132; 85014; 85018; 85025; 85610; 85730; 86850; 86900; 86901; 86920; 87641; 88305; 88312; 90471; 90686; 93005; 96374; C1769; C9113; G0008; J0696; J2354; J7030; J7040; J7050; P9016; Q2038

== ENCOUNTER 2017-01-05 02:54 | Emergency (ER) | payer MEDICARE, MEDICAID ==
[~2017-01-05] VITALS: Ht 175.3 cm; Wt 70.0 kg
[~2017-01-05 02:54] MED LIST changes: -ASPI81TA11 PO; +CIPR-9 PO; -HYDR8TAB PO; -LISI-515 PO; +MISC-163; +PANT40TA3 PO; -PROT40TA PO
[2017-01-05 02:58] VITALS: PULSE 107; RESP 20; TEMP 98.6; O2SAT 96
[2017-01-05] MEDS ORDERED: HYDR25TA5 PO (03:09)
[2017-01-05] MEDS ORDERED: LISI-515 PO (03:09)
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
[2017-01-05] MEDS ORDERED: RESP: ALBUTEROL 2.5 MG/IPRATROPIUM 0.5 MG NEB (SCH) NEB ONE (03:15)
[2017-01-05] MEDS ORDERED: SODIUM CHLORIDE 0.9% FLUSH 5 ML FLUSH IVF PRN (03:15)
[2017-01-05 03:29] LABS: AUTOMATED NEUTROPHIL # 1.6 TH/MM3 (1.8-7.7); BASOPHIL % 0.8 % (0.0-2.0); EOSINOPHIL # 0.1 TH/MM3 (0-0.4); EOSINOPHIL % 1.6 % (0.0-4.0); HEMATOCRIT 37.9 % (35.0-46.0); HEMO FLAGS DIFF FINAL; LYMPH % 39.4 % (9.0-44.0); LYMPHOCYTE # 1.5 TH/MM3 (1.0-4.8); MEAN CELL VOLUME 86.5 FL (80.0-100.0); MEAN CORPUSCULAR HEMOGLOBIN 28.9 PG (27.0-34.0); MEAN CORPUSCULAR HGB CONC 33.4 % (32.0-36.0); MONO % 15.7 % (0.0-8.0); NEUT % 42.5 % (16.0-70.0); PLATELET COUNT 119 TH/MM3 (150-450); RED BLOOD COUNT 4.38 MIL/MM3 (4.00-5.30); RED CELL DISTRIBUTION WIDTH 15.6 % (11.6-17.2); WHITE BLOOD COUNT 3.8 TH/MM3 (4.0-11.0)
--- NOTE | 2017-01-05 03:38 | RADRPT ---
EXAM DATE/TIME: 01/05/2017 03:27 [place] COMPARISON: CHEST SINGLE AP, October 15, 2016, 19:08. INDICATIONS : Shortness of breath. MEDICAL HISTORY : Chronic obstructive pulmonary disease. SURGICAL HISTORY : None. ENCOUNTER: Initial ACUITY: 1 day PAIN SCORE: 0/10 LOCATION: Bilateral chest FINDINGS: A single view of the chest demonstrates the lungs to be symmetrically aerated without evidence of mas s, infiltrate or effusion. The cardiomediastinal contours are unremarkable. Osseous structures are intact. CONCLUSION: No acute disease. Brayan Connors MD on January 05, 2017 at 3:37 Board Certified Radiologist. This report was verified electronically.
[2017-01-05 03:39] LABS: APTT (PATIENT) 30.6 SEC (24.3-30.1); PROTHROMBIN TIME - PATIENT 10.9 SEC (9.8-11.6)
[2017-01-05 04:00] VITALS: BP 125/83; PULSE 106; RESP 18; O2SAT 96
[2017-01-05 04:03] LABS: ALKALINE PHOSPHATASE 111 U/L (45-117); ALT (GPT) 36 U/L (10-53); ANION GAP 11 MEQ/L (5-15); AST (GOT) 74 U/L (15-37); BICARBONATE 19.4 MEQ/L (21.0-32.0); BLOOD UREA NITROGEN 18 MG/DL (7-18); CHLORIDE 108 MEQ/L (98-107); CREATINE KINASE 84 U/L (26-192); GLOMERULAR FILTRATION RATE 80 ML/MIN (>89); MAGNESIUM 1.8 MG/DL (1.5-2.5); POTASSIUM 4.3 MEQ/L (3.5-5.1); SODIUM (NA) 138 MEQ/L (136-145); TOTAL BILIRUBIN ADULT 0.5 MG/DL (0.2-1.0)
[2017-01-05 04:55] LABS: BACTERIA, URINE MOD /hpf; BLOOD, URINE NEG (NEG); COMMENT (UR) CULT NOT INDICATED; CULTURE IF INDICATED CULT NOT INDICATED; GLUCOSE,URINE NEG (NEG); KETONE, URINE NEG (NEG); NITRITE,URINE NEG (NEG); SQUAMOUS EPITHELIAL CELL URINE 4 /hpf (0-5); URINE COLOR LIGHT-YELLOW (YELLW/STRAW)
[2017-01-05 05:02] LABS: AMPHETAMINE, URINE NEG (NEG); BARBITURATES, URINE NEG (NEG); COCAINE, URINE POS (NEG)
[2017-01-05 05:04] VITALS: BP 130/80; PULSE 102; RESP 18; O2SAT 95
[2017-01-05 06:30] VITALS: BP 100/57; PULSE 95; RESP 18; O2SAT 96
[2017-01-05] MEDS ORDERED: ALBU6.7H INH (06:57)
[2017-01-05] MEDS ORDERED: MEDR4PAK PO (06:57)
--- NOTE | 2017-01-05 14:28 | EKG ---
Date Performed: 01/05/2017 Time Performed: 03:03:41 PTAGE: 66 years EKG: SINUS TACHYCARDIA POSSIBLE LEFT ATRIAL ENLARGEMENT ABNORMAL RHYTHM ECG PREVIOUS TRACING : 10/20/2016 17.35 Compared to prior tracing no significant change DOCTOR: Abundio Ramirez Interpretating Date/Time 01/05/2017 14:26:46
== END 2017-01-05 07:37 | disposition home or self-care (01) ==
LOC: NEPC 02:54
DX: J40 Bronchitis, not specified as acute or chronic (principal); R06.02 Shortness of breath; R00.0 Tachycardia, unspecified; I10 Essential (primary) hypertension; E78.00 Pure hypercholesterolemia, unspecified; I50.9 Heart failure, unspecified; M06.9 Rheumatoid arthritis, unspecified; F17.210 Nicotine dependence, cigarettes, uncomplicated
CPT/HCPCS: 71010; 80053; 80307; 81001; 82550; 83605; 83735; 83880; 84484; 85025; 85610; 85730; 87040; 93005; 94664

== ENCOUNTER 2017-01-16 22:15 | Emergency (ER) | payer MEDICARE, MEDICAID ==
[~2017-01-16] VITALS: Ht 175.3 cm; Wt 68.0 kg
[~2017-01-16 22:15] MED LIST changes: +ALBU6.7H INH; -CIPR-9 PO; -CLON0.1T PO; -CLON1TAB PO; -CYCL1TAB29 PO; +HYDR25TA5 PO; +LISI-515 PO; +MEDR4PAK PO
[2017-01-16 22:21] VITALS: BP 131/67; PULSE 105; RESP 14; TEMP 99.8; O2SAT 97
[2017-01-16] MEDS ORDERED: ONDANSETRON HCL 4 MG/2 ML VIAL IV PUSH ONE (23:00)
[2017-01-16] MEDS ORDERED: MORPHINE SULFATE 4 MG/ML INJ IV PUSH ONE (23:00)
[2017-01-16] MEDS ORDERED: SODIUM CHLORIDE 0.9% FLUSH 10 ML FLUSH IV FLUSH PRN (23:00)
--- NOTE | 2017-01-16 23:16 | PD ---
HPI Chief Complaint: Abdominal Pain Time Seen by Provider: 22:51 Travel History International Travel<30 days: No Contact w/Intl Traveler<30days: No Traveled to known affect area: No History of Present Illness HPI 66yo F with PMH of HTN, rheumatoid arthritis, umbilical hernia presents to the ED with c/o abdominal pain today. States pain is mainly where the hernia is. Denies any fever, n/v, diarrhea, urinary complaints. PSH include inguinal hernia repair and csection. PFSH Past Medical History Alzheimer's Disease: Yes (PT DENIES) Anemia: Yes (IRON DEFICIENCY ANEMIA CHRONIC) Arthritis: Yes (rheumatoid) Asthma: No Autoimmune Disease: No Anxiety: Yes Depression: Yes Cancer: No Cardiovascular Problems: Yes (CHF) High Cholesterol: Yes Chest Pain: Yes Congestive Heart Failure: Yes Dementia: Yes Diabetes: No Diminished Hearing: No Endocrine: No Gastrointestinal Disorders: Yes (mass on liver) Genitourinary: No Hepatitis: Yes (C secondary to IV drug abuse, B (questionable)) Hiatal Hernia: Yes (REPAIR) Hypertension: Yes Immune Disorder: No Implanted Vascular Access Dvce: No Musculoskeletal: Yes Neurologic: Yes Psychiatric: Yes (ADDICTION & DEPRESSION) Reproductive: No Respiratory: Yes (PNA) Immunizations Current: Yes Ulcer: Yes Menopausal: Yes : 5 Para: 3 : 2 Past Surgical History Abdominal Surgery: Yes (INGUINAL HERNIA REPAIR) Section: Yes (X1) Gynecologic Surgery: Yes Pacemaker: No Other Surgery: Yes (fx nose, fx ankle) Social History Alcohol Use: Yes (OCC) Tobacco Use: Yes (1 PPD) Substance Use: No Allergies-Medications (Allergen,Severity, Reaction): Coded Allergies: No Known Allergies (Verified , 01/16/17) Reported Meds & Prescriptions Reported Meds & Active Scripts Active Acetaminophen Extra Strength (Acetaminophen) 500 Mg Tab 500 Mg PO Q6H PRN Medrol Dosepak (Methylprednisolone) 4 Mg Dspk 4 Mg PO DIRECTED Per Pharmacist direction Proventil Hfa 6.7 GM Inh (Albuterol Sulfate) 90 Mcg/Act Aer 2 Puff INH Q4-6H PRN Pantoprazole (Pantoprazole Sodium) 40 Mg Tab 40 Mg PO Q12HR 3-in-1 Bedside Toilet (Device) 1 Mis Mis 1 Ea .ROUTE DIRECTED Ventolin Hfa 18 GM Inh (Albuterol Sulfate) 90 Mcg/Act Aer 2 Puff INH Q6H PRN Reported Hydrochlorothiazide 25 Mg Tab 25 Mg PO BID Lisinopril 20 Mg Tab 20 Mg PO DAILY Morphine ER (Morphine Sulfate) 60 Mg Tab 60 Mg PO DAILY IN THE PM Morphine ER (Morphine Sulfate) 30 Mg Tab 30 Mg PO DAILY IN THE AM Donepezil 10 Mg Tab 10 Mg PO HS Allopurinol 100 Mg Tab 100 Mg PO DAILY Review of Systems Except as stated in HPI: all other systems reviewed are Neg Physical Exam Narrative GENERAL: 66yo F not in distress. SKIN: Focused skin assessment warm/dry. HEAD: Atraumatic. Normocephalic. EYES: Pupils equal and round. No scleral icterus. No injection or drainage. ENT: No nasal bleeding or discharge. Mucous membranes pink and moist. NECK: Trachea midline. No JVD. CARDIOVASCULAR: Regular rate and rhythm. No murmur appreciated. RESPIRATORY: No accessory muscle use. Clear to auscultation. Breath sounds equal bilaterally. GASTROINTESTINAL: Abdomen soft, umbilical hernia above umbilicus reducible. Mild ttp umbilical hernia. No rebound tenderness or guarding. MUSCULOSKELETAL: No obvious deformities. No clubbing. No cyanosis. No edema. NEUROLOGICAL: Awake and alert. No obvious cranial nerve deficits. Motor grossly within normal limits. Normal speech. PSYCHIATRIC: Appropriate mood and affect; insight and judgment normal. Data Data Last Documented VS Vital Signs Date Time Temp Pulse Resp B/P Pulse Ox O2 Delivery O2 Flow Rate FiO2 01/16/17 22:21 99.8 105 14 131/67 97 Room Air Orders Complete Blood Count With Diff (01/16/17 22:57) Comprehensive Metabolic Panel (01/16/17 22:57) Lipase (01/16/17 22:57) Prothrombin Time / Inr (Pt) (01/16/17 22:57) Act Partial Throm Time (Ptt) (01/16/17 22:57) Iv Access Insert/Monitor (01/16/17 22:57) Ecg Monitoring (01/16/17 22:57) Oximetry (01/16/17 22:57) Sodium Chloride 0.9% Flush (Ns Flush) (01/16/17 23:00) Electrocardiogram (01/16/17 22:57) Morphine Inj (Morphine Inj) (01/16/17 23:00) Ondansetron Inj (Zofran Inj) (01/16/17 23:00) Ct Abd/Pel W Iv Contrast(Rout) (01/17/17 22:57) Iohexol 350 Inj (Omnipaque 350 Inj) (01/17/17 02:22) Sodium Chlor 0.9% 1000 Ml Inj (Ns 1000 M (01/17/17 03:45) Insulin Human Regular Inj (Novolin R Inj (01/17/17 03:45) Dextrose 50% In Vin (Vial) Inj (D50w (Vi (01/17/17 03:45) Sodium Polysty Sulfate Liq (Kayexalate L (01/17/17 03:45) Potassium, Serum (K) (01/17/17 04:39) Labs Laboratory Tests Test 01/16/17 01/17/17 01/17/17 23:45 00:50 05:30 White Blood Count 4.3 TH/MM3 Red Blood Count 4.60 MIL/MM3 Hemoglobin 13.3 GM/DL Hematocrit 39.9 % Mean Corpuscular Volume 86.8 FL Mean Corpuscular Hemoglobin 29.0 PG Mean Corpuscular Hemoglobin 33.4 % Concent Red Cell Distribution Width 16.3 % Platelet Count 115 TH/MM3 Mean Platelet Volume 9.9 FL Neutrophils (%) (Auto) 46.3 % Lymphocytes (%) (Auto) 33.3 % Monocytes (%) (Auto) 18.9 % Eosinophils (%) (Auto) 1.2 % Basophils (%) (Auto) 0.3 % Neutrophils # (Auto) 2.0 TH/MM3 Lymphocytes # (Auto) 1.4 TH/MM3 Monocytes # (Auto) 0.8 TH/MM3 Eosinophils # (Auto) 0.1 TH/MM3 Basophils # (Auto) 0.0 TH/MM3 CBC Comment DIFF FINAL Differential Comment Prothrombin Time 11.3 SEC Prothromb Time International 1.0 RATIO Ratio Activated Partial 29.5 SEC Thromboplast Time Sodium Level 137 MEQ/L Potassium Level 5.7 MEQ/L 5.2 MEQ/L Chloride Level 108 MEQ/L Carbon Dioxide Level 22.0 MEQ/L Anion Gap 7 MEQ/L Blood Urea Nitrogen 37 MG/DL Creatinine 1.32 MG/DL Estimat Glomerular Filtration 49 ML/MIN Rate Random Glucose 92 MG/DL Calcium Level 9.2 MG/DL Total Bilirubin 0.8 MG/DL Aspartate Amino Transf 53 U/L (AST/SGOT) Alanine Aminotransferase 27 U/L (ALT/SGPT) Alkaline Phosphatase 103 U/L Total Protein 8.6 GM/DL Albumin 3.2 GM/DL Lipase 255 U/L MDM Medical Decision Making Medical Screen Exam Complete: Yes Emergency Medical Condition: Yes Interpretation(s) EKG: NSR 98bpm. Normal axis. TWI III. Laboratory Tests Test 01/16/17 01/17/17 01/17/17 23:45 00:50 05:30 White Blood Count 4.3 TH/MM3 (4.0-11.0) Red Blood Count 4.60 MIL/MM3 (4.00-5.30) Hemoglobin 13.3 GM/DL (11.6-15.3) Hematocrit 39.9 % (35.0-46.0) Mean Corpuscular Volume 86.8 FL (80.0-100.0) Mean Corpuscular Hemoglobin 29.0 PG (27.0-34.0) Mean Corpuscular Hemoglobin 33.4 % Concent (32.0-36.0) Red Cell Distribution Width 16.3 % (11.6-17.2) Platelet Count 115 TH/MM3 (150-450) Mean Platelet Volume 9.9 FL (7.0-11.0) Neutrophils (%) (Auto) 46.3 % (16.0-70.0) Lymphocytes (%) (Auto) 33.3 % (9.0-44.0) Monocytes (%) (Auto) 18.9 % (0.0-8.0) Eosinophils (%) (Auto) 1.2 % (0.0-4.0) Basophils (%) (Auto) 0.3 % (0.0-2.0) Neutrophils # (Auto) 2.0 TH/MM3 (1.8-7.7) Lymphocytes # (Auto) 1.4 TH/MM3 (1.0-4.8) Monocytes # (Auto) 0.8 TH/MM3 (0-0.9) Eosinophils # (Auto) 0.1 TH/MM3 (0-0.4) Basophils # (Auto) 0.0 TH/MM3 (0-0.2) CBC Comment DIFF FINAL Differential Comment Prothrombin Time 11.3 SEC (9.8-11.6) Prothromb Time International 1.0 RATIO Ratio Activated Partial 29.5 SEC Thromboplast Time (24.3-30.1) Sodium Level 137 MEQ/L (136-145) Potassium Level 5.7 MEQ/L 5.2 MEQ/L (3.5-5.1) (3.5-5.1) Chloride Level 108 MEQ/L (98-107) Carbon Dioxide Level 22.0 MEQ/L (21.0-32.0) Anion Gap 7 MEQ/L (5-15) Blood Urea Nitrogen 37 MG/DL (7-18) Creatinine 1.32 MG/DL (0.50-1.00) Estimat Glomerular Filtration 49 ML/MIN (>89) Rate Random Glucose 92 MG/DL (74-106) Calcium Level 9.2 MG/DL (8.5-10.1) Total Bilirubin 0.8 MG/DL (0.2-1.0) Aspartate Amino Transf 53 U/L (15-37) (AST/SGOT) Alanine Aminotransferase 27 U/L (10-53) (ALT/SGPT) Alkaline Phosphatase 103 U/L (45-117) Total Protein 8.6 GM/DL (6.4-8.2) Albumin 3.2 GM/DL (3.4-5.0) Lipase 255 U/L (73-393) Last Impressions Abdomen/Pelvis CT 01/17/17 4018 Signed Impressions: Service Date/Time: Thursday, January 17, 2017 02:06 - CONCLUSION: 1. There is a fat containing hernia superior to the umbilicus that has increased in size from the prior exam. 2. End-stage changes at the hip joints bilaterally with destruction of the right femoral head. These abnormal findings have progressed since the prior exam. 3. Findings diagnostic of cirrhosis with a splenorenal shunt and splenomegaly suggesting portal hypertension. 4. There is a 2 cm linear density in the right colon that could represent an ingested foreign body. 5. Non-acute findings included cholelithiasis, severe atherosclerotic disease, and 3 cm right renal cyst. Mainor Avila MD Differential Diagnosis Incarcerated hernia vs. colitis vs. UTI Narrative Course 66yo F with abdominal pain. Pt is well appearing and hernia is reducible. Labs reviewed, no leukocytosis. K: 5.7. Pt given insulin/dextrose and kayexylate. BUN/creatinine elevated at 37/1.32. Creatinine mildly increased at 1.32. Pt given IVF NS. CTa/p showed fat containing hernia superior to umbilicus that has increased in size from prior exam. End stage changes at hip joints bilaterally with destruction of right femoral head. She has known about this problem for years and has outpatient follow up regarding this. Pt has her walker with her. There is a 2cm linear density in right colon that could represent an ingested foreign body. Pt given morphine and zofran and abdominal pain has resolved. Abdominal exam: soft, NT/ND. Reduced umbilical hernia. No rebound tenderness or guarding. Repeat K is 5.2. Pt eating and doing well. Return precautions given. Diagnosis Primary Impression: Abdominal pain Qualified Code: R10.33 - Periumbilical abdominal pain Patient Instructions: General Instructions Departure Forms: Tests/Procedures Additional Instructions: Please follow up with your PMD in 3-7 days. Return to the ED if your symptoms worsen. Med/Other Pt SpecificInfo: Prescription(s) given Scripts Acetaminophen (Acetaminophen Extra Strength)500 Mg [id number] Mg PO Q6H PRN (PAIN SCALE 1 TO 4) #20 TAB Ref 0 Prov:Eden Hill DO 01/17/17 Disposition: 01 DISCHARGE HOME Condition: Stable Eden Hill DO Jan 16, 2017 23:16
[2017-01-17 00:02] LABS: BASOPHIL % 0.3 % (0.0-2.0); EOSINOPHIL # 0.1 TH/MM3 (0-0.4); EOSINOPHIL % 1.2 % (0.0-4.0); HEMATOCRIT 39.9 % (35.0-46.0); HEMO FLAGS DIFF FINAL; LYMPH % 33.3 % (9.0-44.0); LYMPHOCYTE # 1.4 TH/MM3 (1.0-4.8); MEAN CELL VOLUME 86.8 FL (80.0-100.0); MEAN CORPUSCULAR HGB CONC 33.4 % (32.0-36.0); MONO % 18.9 % (0.0-8.0); NEUT % 46.3 % (16.0-70.0); PLATELET COUNT 115 TH/MM3 (150-450); RED CELL DISTRIBUTION WIDTH 16.3 % (11.6-17.2); WHITE BLOOD COUNT 4.3 TH/MM3 (4.0-11.0)
[2017-01-17 00:47] LABS: APTT (PATIENT) 29.5 SEC (24.3-30.1); PROTHROMBIN TIME - PATIENT 11.3 SEC (9.8-11.6)
[2017-01-17 01:34] LABS: ALT (GPT) 27 U/L (10-53); ANION GAP 7 MEQ/L (5-15); AST (GOT) 53 U/L (15-37); BLOOD UREA NITROGEN 37 MG/DL (7-18); CHLORIDE 108 MEQ/L (98-107); GLOMERULAR FILTRATION RATE 49 ML/MIN (>89); POTASSIUM 5.7 MEQ/L (3.5-5.1); SODIUM (NA) 137 MEQ/L (136-145)
[2017-01-17 01:37] LABS: ALKALINE PHOSPHATASE 103 U/L (45-117); TOTAL BILIRUBIN ADULT 0.8 MG/DL (0.2-1.0)
[2017-01-17] MEDS ORDERED: IOHEXOL 350 MG/ML 10 ML VIAL (for RAD DIAG) IV ONE (02:22)
--- NOTE | 2017-01-17 02:43 | RADRPT ---
EXAM DATE/TIME: 01/17/2017 02:06 [facility] COMPARISON: CT ABDOMEN & PELVIS W CONTRAST, February 02, 2013, 9:07. INDICATIONS : Periumbilical pain. IV CONTRAST: 80 cc Omnipaque 350 (iohexol) IV ORAL CONTRAST: No oral contrast ingested. RADIATION DOSE: 7.04 CTDIvol (mGy) MEDICAL HISTORY : Hepatitis C. Congestive heart failure. Hypercholesterolemia.Hypertension SURGICAL HISTORY : Inguinal hernia repair. section. ENCOUNTER: Initial ACUITY: 1 day PAIN SCALE: 6/10 LOCATION: abdomen TECHNIQUE: Volumetric scanning of the abdomen and pelvis was performed. Using automated exposure control and ad justment of the mA and/or kV according to patient size, radiation dose was kept as low as reasonably achievable to obtain optimal diagnostic quality images. FINDINGS: LOWER LUNGS: There is atelectasis versus scar the lung bases. LIVER: The liver measures 20.5 cm in length and demonstrates a nodular contour characteristic of cirrhosis. There are calcified stones in the gallbladder. No focal liver lesion is identified. There is no dila tion of the biliary tree. SPLEEN: Enlarged measuring 15.5 cm in length. PANCREAS: Within normal limits. KIDNEYS: Normal in size and shape. There is no mass, stone or hydronephrosis. There is a 3 cm simple appearin g right renal cyst. ADRENAL GLANDS: Within normal limits. VASCULAR: There is no aortic aneurysm. There is severe atherosclerotic disease. There is a splenorenal shunt. BOWEL/MESENTERY: The stomach, small bowel, and colon demonstrate no acute abnormality. There is no free intraperitone al air or fluid. There is sigmoid diverticulosis. There is a linear density in the right colon that m easures greater than 2 cm in length. ABDOMINAL WALL: There is a fat-containing periumbilical hernia just superior to the umbilicus just in the midline. RETROPERITONEUM: There is no lymphadenopathy. BLADDER: No wall thickening or mass. REPRODUCTIVE: Within normal limits. INGUINAL: There is no lymphadenopathy or hernia. MUSCULOSKELETAL: There are degenerative changes of the lumbar spine and there is end-stage degenerative change of the left hip joint as well as destruction of the right hip joint. These findings have progressed since e prior exam. CONCLUSION: 1. There is a fat containing hernia superior to the umbilicus that has increased in size from the nithin or exam. 2. End-stage changes at the hip joints bilaterally with destruction of the right femoral head. These abnormal findings have progressed since the prior exam. 3. Findings diagnostic of cirrhosis with a splenorenal shunt and splenomegaly suggesting portal hyper tension. 4. There is a 2 cm linear density in the right colon that could represent an ingested foreign body. 5. Non-acute findings included cholelithiasis, severe atherosclerotic disease, and 3 cm right renal c yst. Mainor Avila MD on January 17, 2017 at 2:35 Board Certified Radiologist. This report was verified electronically.
[2017-01-17] MEDS ORDERED: INSULIN HUMAN REGULAR 1,000 UNITS/10 ML VIAL IV PUSH ONE (03:45)
[2017-01-17] MEDS ORDERED: SODIUM POLYSTYRENE SULFONATE SUSP 15 GM/60 ML CUP PO ONE (03:45)
[2017-01-17] MEDS ORDERED: SODIUM CHLOR 0.9% 1000 ML INJ 1,000 ML IV ONE (03:45)
[2017-01-17] MEDS ORDERED: DEXTROSE 50% IN WATER 50 ML VIAL(D50) IV PUSH ONE (03:45)
[2017-01-17] MEDS ORDERED: ACET500T36 PO (06:46)
--- NOTE | 2017-01-18 21:20 | EKG ---
Date Performed: 01/16/2017 Time Performed: 23:54:04 PTAGE: 66 years EKG: Sinus rhythm NORMAL ECG NO PREVIOUS TRACING DOCTOR: Jeannie Jett Interpretating Date/Time 01/18/2017 21:18:33
== END 2017-01-17 08:00 | disposition home or self-care (01) ==
LOC: NEPE 22:15
DX: R10.33 Periumbilical pain (principal); I10 Essential (primary) hypertension; D50.9 Iron deficiency anemia, unspecified; M06.9 Rheumatoid arthritis, unspecified; I50.9 Heart failure, unspecified; F17.210 Nicotine dependence, cigarettes, uncomplicated
CPT/HCPCS: 74177; 80053; 83690; 84132; 85025; 85610; 85730; 93005; 96361; 96374; 96375; 99284; J1815; J2270; J2405; J7030; Q9967

== ENCOUNTER 2017-05-10 05:04 | Inpatient (IN) | payer MEDICARE, MEDICAID ==
[2017-05-10] VITALS (11 sets, daily range): BP systolic 98–132; BP diastolic 63–73; PULSE 89–104; RESP 16–22; TEMP 98–99.5; O2SAT 88–99
[~2017-05-10] VITALS: Ht 160 cm; Wt 72.0 kg
[~2017-05-10 05:04] MED LIST changes: +ACET500T36 PO
[2017-05-10] MEDS: RESP: ALBUTEROL 2.5 MG/IPRATROPIUM 0.5 MG NEB (SCH) INH (05:38)
[2017-05-10] MEDS ORDERED: SODIUM CHLORIDE 0.9% FLUSH 10 ML FLUSH IVF PRN (05:45)
[2017-05-10] MEDS ORDERED: methylPREDNISolone SOD SUCC 125 MG/2 ML VIAL IVP ONE (05:45)
[2017-05-10 05:55] LABS: BLOOD GAS BASE EXCESS -3.1 mmol/L (-2-2); BLOOD GAS CARBOXYHEMOGLOBIN 3.3 % (0-4); BLOOD GAS HCO3 22 mmol/L (22-26); BLOOD GAS METHEMOGLOBIN 0.4 % (0-2); BLOOD GAS O2 HGB SATURATION 88 % (90-100); BLOOD GAS OXYGEN CONTENT 16.1 Vol % (12.0-20.0); BLOOD GAS PCO2 40 mmHg (38-42); BLOOD GAS PO2 61 mmHG (61-120); TEMP CORR TO 98.6
[2017-05-10 05:56] LABS: CRITICAL VALUE YES; DRAW SITE LT RADIAL; FIO2 21 %; NUMBER OF ARTERIAL PUNCTURES 1; OXYGEN DEVICE ROOM AIR; STAT YES; ULNAR PULSE PRESENT
[2017-05-10 05:58] LABS: BASOPHIL % 0.4 % (0.0-2.0); EOSINOPHIL # 0.1 TH/MM3 (0-0.4); EOSINOPHIL % 1.4 % (0.0-4.0); HEMATOCRIT 41.6 % (35.0-46.0); HEMO FLAGS DIFF FINAL; LYMPH % 46.2 % (9.0-44.0); LYMPHOCYTE # 2.2 TH/MM3 (1.0-4.8); MEAN CELL VOLUME 90.4 FL (80.0-100.0); MEAN CORPUSCULAR HEMOGLOBIN 29.3 PG (27.0-34.0); MEAN CORPUSCULAR HGB CONC 32.4 % (32.0-36.0); MONO % 10.6 % (0.0-8.0); NEUT % 41.4 % (16.0-70.0); PLATELET COUNT 141 TH/MM3 (150-450); RED CELL DISTRIBUTION WIDTH 15.2 % (11.6-17.2); WHITE BLOOD COUNT 4.7 TH/MM3 (4.0-11.0)
[2017-05-10 06:09] LABS: APTT (PATIENT) 30.6 SEC (24.3-30.1); PROTHROMBIN TIME - PATIENT 11.4 SEC (9.8-11.6)
[2017-05-10 06:26] LABS: ANION GAP 8 MEQ/L (5-15); BICARBONATE 22.3 MEQ/L (21.0-32.0); BLOOD UREA NITROGEN 18 MG/DL (7-18); CHLORIDE 103 MEQ/L (98-107); GLOMERULAR FILTRATION RATE 65 ML/MIN (>89); POTASSIUM 4.2 MEQ/L (3.5-5.1); SODIUM (NA) 133 MEQ/L (136-145)
--- NOTE | 2017-05-10 06:29 | PD ---
HPI Chief Complaint: Respiratory Symptoms Time Seen by Provider: 05:13 Travel History International Travel<30 days: No Contact w/Intl Traveler<30days: No Traveled to known affect area: No History of Present Illness HPI 67yo F with PMH of HTN, RA, umbilical hernia presents to the ED with c/o nasal congestion and cough for a few days. States she has been using mucinex but not working. Mild sob. +Cig smoker. Denies any fever, chest pain, n/v, abdominal pain, focal weakness or numbness. Pt takes morphine for chronic pain and just took some prior to coming. PFSH Past Medical History Alzheimer's Disease: Yes (PT DENIES) Anemia: Yes (IRON DEFICIENCY ANEMIA CHRONIC) Arthritis: Yes (rheumatoid) Asthma: No Autoimmune Disease: No Anxiety: Yes Depression: Yes Cancer: No Cardiovascular Problems: Yes (CHF) High Cholesterol: Yes Chest Pain: Yes Congestive Heart Failure: Yes Dementia: Yes Diabetes: No Diminished Hearing: No Endocrine: No Gastrointestinal Disorders: Yes (mass on liver) Genitourinary: No Hepatitis: Yes (C secondary to IV drug abuse, B (questionable)) Hiatal Hernia: Yes (REPAIR) Hypertension: Yes Immune Disorder: No Implanted Vascular Access Dvce: No Musculoskeletal: Yes Neurologic: Yes Psychiatric: Yes (ADDICTION & DEPRESSION) Reproductive: No Respiratory: Yes (PNA) Immunizations Current: Yes Ulcer: Yes Tetanus Vaccination: Unknown Influenza Vaccination: Yes Menopausal: Yes : 5 Para: 3 : 2 Past Surgical History Abdominal Surgery: Yes (INGUINAL HERNIA REPAIR) Section: Yes (X1) Gynecologic Surgery: Yes Pacemaker: No Other Surgery: Yes (fx nose, fx ankle) Social History Alcohol Use: Yes (OCC) Tobacco Use: Yes (1 PPD) Substance Use: No Allergies-Medications (Allergen,Severity, Reaction): Coded Allergies: No Known Allergies (Verified , 05/10/17) Reported Meds & Prescriptions Reported Meds & Active Scripts Active Pantoprazole (Pantoprazole Sodium) 40 Mg Tab 40 Mg PO Q12HR Reported Hydrochlorothiazide 25 Mg Tab 25 Mg PO BID Lisinopril 20 Mg Tab 20 Mg PO DAILY Morphine ER (Morphine Sulfate) 60 Mg Tab 60 Mg PO DAILY IN THE PM Morphine ER (Morphine Sulfate) 30 Mg Tab 30 Mg PO DAILY IN THE AM Donepezil 10 Mg Tab 10 Mg PO HS Allopurinol 100 Mg Tab 100 Mg PO DAILY Review of Systems Except as stated in HPI: all other systems reviewed are Neg Physical Exam Narrative GENERAL: 67yo F not in distress. SKIN: Focused skin assessment warm/dry. HEAD: Atraumatic. Normocephalic. EYES: Pupils equal and round. No scleral icterus. No injection or drainage. ENT: No nasal bleeding or discharge. Throat: Clear. NECK: Trachea midline. No JVD. CARDIOVASCULAR: Regular rate and rhythm. No murmur appreciated. RESPIRATORY: No accessory muscle use. Clear to auscultation. Breath sounds equal bilaterally. GASTROINTESTINAL: Abdomen soft, non-tender, nondistended. No rebound tenderness or guarding. MUSCULOSKELETAL: No obvious deformities. No clubbing. No cyanosis. No edema. NEUROLOGICAL: Awake and alert. No obvious cranial nerve deficits. Motor grossly within normal limits. Normal speech. PSYCHIATRIC: Appropriate mood and affect; insight and judgment normal. Data Data Last Documented VS Vital Signs Date Time Temp Pulse Resp B/P Pulse Ox O2 Delivery O2 Flow Rate FiO2 05/10/17 07:09 104 18 103/69 90 Nasal Cannula 4 05/10/17 05:11 99.2 Orders Complete Blood Count With Diff (05/10/17 05:31) Basic Metabolic Panel (Bmp) (05/10/17 05:31) Act Partial Throm Time (Ptt) (05/10/17 05:31) Prothrombin Time / Inr (Pt) (05/10/17 05:31) Troponin I (05/10/17 05:31) Arterial Blood Gas (Abg) (05/10/17 05:31) Iv Access Insert/Monitor (05/10/17 05:31) Electrocardiogram (05/10/17 05:31) Ecg Monitoring (05/10/17 05:31) Oximetry (05/10/17 05:31) Oxygen Administration (05/10/17 05:31) Chest, Single Ap (05/10/17 05:31) Sodium Chloride 0.9% Flush (Ns Flush) (05/10/17 05:45) Methylprednisolone So Succ Inj (Solumedr (05/10/17 05:45) Albuterol-Ipratropium Neb (Duoneb Neb) (05/10/17 05:45) Blood Culture (05/10/17 05:31) Lactic Acid Sepsis Protocol (05/10/17 05:31) Ceftriaxone Inj (Rocephin Inj) (05/10/17 07:30) Azithromycin (Zithromax) (05/10/17 07:30) Admit Order (Ed Use Only) (05/10/17 07:23) Labs Laboratory Tests Test 05/10/17 05/10/17 05:35 05:45 Blood Gas Puncture Site LT RADIAL Blood Gas Patient Temperature 98.6 Blood Gas HCO3 22 mmol/L Blood Gas Base Excess -3.1 mmol/L Blood Gas Oxygen Saturation 88 % Arterial Blood pH 7.35 Arterial Blood Partial 40 mmHg Pressure CO2 Arterial Blood Partial 61 mmHG Pressure O2 Arterial Blood Oxygen Content 16.1 Vol % Arterial Blood 3.3 % Carboxyhemoglobin Arterial Blood Methemoglobin 0.4 % Blood Gas Hemoglobin 13.0 G/DL Oxygen Delivery Device ROOM AIR Blood Gas Inspired Oxygen 21 % White Blood Count 4.7 TH/MM3 Red Blood Count 4.60 MIL/MM3 Hemoglobin 13.5 GM/DL Hematocrit 41.6 % Mean Corpuscular Volume 90.4 FL Mean Corpuscular Hemoglobin 29.3 PG Mean Corpuscular Hemoglobin 32.4 % Concent Red Cell Distribution Width 15.2 % Platelet Count 141 TH/MM3 Mean Platelet Volume 8.8 FL Neutrophils (%) (Auto) 41.4 % Lymphocytes (%) (Auto) 46.2 % Monocytes (%) (Auto) 10.6 % Eosinophils (%) (Auto) 1.4 % Basophils (%) (Auto) 0.4 % Neutrophils # (Auto) 2.0 TH/MM3 Lymphocytes # (Auto) 2.2 TH/MM3 Monocytes # (Auto) 0.5 TH/MM3 Eosinophils # (Auto) 0.1 TH/MM3 Basophils # (Auto) 0.0 TH/MM3 CBC Comment DIFF FINAL Differential Comment Prothrombin Time 11.4 SEC Prothromb Time International 1.0 RATIO Ratio Activated Partial 30.6 SEC Thromboplast Time Sodium Level 133 MEQ/L Potassium Level 4.2 MEQ/L Chloride Level 103 MEQ/L Carbon Dioxide Level 22.3 MEQ/L Anion Gap 8 MEQ/L Blood Urea Nitrogen 18 MG/DL Creatinine 1.03 MG/DL Estimat Glomerular Filtration 65 ML/MIN Rate Random Glucose 87 MG/DL Lactic Acid Level 1.4 mmol/L Calcium Level 9.3 MG/DL Troponin I LESS THAN 0.02 NG/ML MDM Medical Decision Making Medical Screen Exam Complete: Yes Emergency Medical Condition: Yes Differential Diagnosis URI vs. respiratory depression secondary to pain medication vs. pneumonia vs. COPD exacerbation Narrative Course 67yo F with c/o nasal congestion and sob. Pt is very sleepy. Think it is affiliated with morphine use. However, pt is still hypoxic and needs oxygen. Saturating in low 90s with 3L NC. CXR showed densities overlying right upper lobe. Will cover with ceftriaxone and azithromycin. Concern for aspiration pneumonia. Labs reviewed, no leukocytosis. Lactic acid 1.4. Troponin 0.02. Discussed with Dr. Nails and accepted to her service. Diagnosis Primary Impression: PNA (pneumonia) Qualified Code: J18.1 - Pneumonia of right upper lobe due to infectious organism Eden Hill DO May 10, 2017 06:29
--- NOTE | 2017-05-10 06:33 | RADRPT ---
EXAM DATE/TIME: 05/10/2017 05:35 [facility] COMPARISON: CHEST SINGLE AP, January 05, 2017, 3:27. INDICATIONS : Shortness of breath and cough MEDICAL HISTORY : Hypercholesterolemia. Hepatitis C. Hepatitis B. CHF, Anemia, Hypertension SURGICAL HISTORY : Inguinal hernia repair. Hiatal hernia repair ENCOUNTER: Initial ACUITY: 1 day PAIN SCORE: 6/10 LOCATION: Bilateral chest FINDINGS: Her for objects overlying the right upper lobe and lung apex. Parenchymal disease in this region gita ot be excluded. Lungs appear elsewhere clear. Accounting for slight rotation, cardiac contours are gr ossly satisfactory. CONCLUSION: Densities overlying the right upper lobe Mainor Escobedo MD on May 10, 2017 at 6:30 Board Certified Radiologist. This report was verified electronically.
[2017-05-10] MEDS ORDERED: AZITHROMYCIN 250 MG TAB PO ONE (07:30)
[2017-05-10] MEDS ORDERED: cefTRIAXone INJ 1,000 MG in SODIUM CHLORIDE 0.9% INJ 100 ML IV ONE (07:30)
--- NOTE | 2017-05-10 07:40 | HHI.HP ---
HPI Service [facility] Primary Care Physician Mainor Bills MD Admission Diagnosis Hypoxemic, pneumonia Diagnoses: Travel History International Travel<30 Days: No Contact w/Intl Traveler <30 Da: No Traveled to Known Affected Are: No History of Present Illness This is a 67 yo female who presented to ED for worsening congestion, cough, and runny nose. The patient states days ago she developed a runny nose while cleaning her home. Her sx progressively on worsened. She states he felt subjectively warm. She states she has been taking mucinex at home and it helped some. She denies feeling SOB, her biggest concern was her persistent runny nose and post nasal drip. She called [facility]. In the ED patient was very tired and was apparently falling asleep very easily. CXR was concerning for RUL PNA. Patient was oxygenating 88 on room air. Concern at that time was for aspiration PNA. When I discussed this with the patient, she stated she had been up all night coughing and was very tired when seen in the ER. She denies chocking and does not believe she aspirated. She currently feels well, she denies feeling SOB. She is hungry. She is a smoker, and states she has smoked cigarrets all her life. She is currently on oxygen, and saturating in the 90s. She does not use oxygen at home. She wants to make sure she will get her home medications. Her medical problems include RA, gout, and HTN. Her PCP is Dr. Mainor Bills, but states she has not seen him and sees his associates locally. She has lots of joint pain and uses a walker to get around. Review of Systems Constitutional: COMPLAINS OF: Fever, DENIES: Weight gain, Weight loss, Chills Eyes: DENIES: Blurred vision, Diplopia Respiratory: COMPLAINS OF: Cough, Sputum production, DENIES: Shortness of breath Cardiovascular: DENIES: Chest pain, Palpitations Gastrointestinal: COMPLAINS OF: Constipation, DENIES: Abdominal pain, Nausea, Vomiting Musculoskeletal: COMPLAINS OF: Joint pain, Back pain Neurologic: COMPLAINS OF: Abnormal gait, Localized weakness Psychiatric: COMPLAINS OF: Mood changes, Depression, DENIES: Anxiety, Confusion Except as stated in HPI: all other systems reviewed are Neg Past Family Social History Past Medical History HTN Gout RA Past Surgical History Hernia repair Reported Medications Pantoprazole (Pantoprazole Sodium) 40 Mg Tab 40 Mg PO Q12HR Hydrochlorothiazide 25 Mg Tab 25 Mg PO BID Lisinopril 20 Mg Tab 20 Mg PO DAILY Hydromorphone 8 mg Morphine ER (Morphine Sulfate) ER 30 Mg Tab 30 Mg PO DAILY IN THE AM Donepezil 10 Mg Tab 10 Mg PO HS Allopurinol 100 Mg Tab 100 Mg PO DAILY Flexiril zanex 1 mg Allergies: Coded Allergies: No Known Allergies (Verified , 05/10/17) Family History unsure of family history Social History lives with her son and his girlfriend smokes cigarettes endorse IV heroin use in the past, at times asks her son to hold her pain medications because she struggles still with her addiction history of alcohol abuse, she states she stopped drinking 2-3 years ago, but got upset a few months ago and had a drink Physical Exam Vital Signs Vital Signs Date Time Temp Pulse Resp B/P Pulse Ox O2 Delivery O2 Flow Rate FiO2 05/10/17 07:09 104 18 103/69 90 Nasal Cannula 4 05/10/17 05:52 22 05/10/17 05:52 98 Nasal Cannula 5 05/10/17 05:11 99.2 101 22 104/69 88 Physical Exam GENERAL: This is a well-nourished, well-developed patient, in no apparent distress. SKIN: No rashes, ecchymoses or lesions. Cool and dry. HEAD: Atraumatic. Normocephalic. No temporal or scalp tenderness. EYES: Pupils equal round and reactive. Extraocular motions intact. No scleral icterus. No injection or drainage. ENT: Nose without bleeding, purulent drainage or septal hematoma. Throat without erythema, tonsillar hypertrophy or exudate. Uvula midline. Airway patent. NECK: Trachea midline. No JVD or lymphadenopathy. Supple, nontender, no meningeal signs. CARDIOVASCULAR: Regular rate and rhythm without murmurs, gallops, or rubs. RESPIRATORY: Clear to auscultation. Breath sounds equal bilaterally. No wheezes , rales, or rhonchi. GASTROINTESTINAL: Abdomen soft, non-tender, nondistended. No hepato-splenomegaly , or palpable masses. No guarding. MUSCULOSKELETAL: Extremities without clubbing, cyanosis, or edema. +joint tenderness right hip, effusion, or edema noted. No calf tenderness. NEUROLOGICAL: Awake and alert. Cranial nerves II through XII grossly intact. Motor and sensory grossly within normal limits. Normal speech. Laboratory Laboratory Tests Test 05/10/17 05/10/17 05:35 05:45 Blood Gas Puncture Site LT RADIAL Blood Gas Patient Temperature 98.6 Blood Gas HCO3 22 Blood Gas Base Excess -3.1 Blood Gas Oxygen Saturation 88 Arterial Blood pH 7.35 Arterial Blood Partial 40 Pressure CO2 Arterial Blood Partial 61 Pressure O2 Arterial Blood Oxygen Content 16.1 Arterial Blood 3.3 Carboxyhemoglobin Arterial Blood Methemoglobin 0.4 Blood Gas Hemoglobin 13.0 Oxygen Delivery Device ROOM AIR Blood Gas Inspired Oxygen 21 White Blood Count 4.7 Red Blood Count 4.60 Hemoglobin 13.5 Hematocrit 41.6 Mean Corpuscular Volume 90.4 Mean Corpuscular Hemoglobin 29.3 Mean Corpuscular Hemoglobin 32.4 Concent Red Cell Distribution Width 15.2 Platelet Count 141 Mean Platelet Volume 8.8 Neutrophils (%) (Auto) 41.4 Lymphocytes (%) (Auto) 46.2 Monocytes (%) (Auto) 10.6 Eosinophils (%) (Auto) 1.4 Basophils (%) (Auto) 0.4 Neutrophils # (Auto) 2.0 Lymphocytes # (Auto) 2.2 Monocytes # (Auto) 0.5 Eosinophils # (Auto) 0.1 Basophils # (Auto) 0.0 CBC Comment DIFF FINAL Differential Comment Prothrombin Time 11.4 Prothromb Time International 1.0 Ratio Activated Partial 30.6 Thromboplast Time Sodium Level 133 Potassium Level 4.2 Chloride Level 103 Carbon Dioxide Level 22.3 Anion Gap 8 Blood Urea Nitrogen 18 Creatinine 1.03 Estimat Glomerular Filtration 65 Rate Random Glucose 87 Lactic Acid Level 1.4 Calcium Level 9.3 Troponin I LESS THAN 0.02 Date/Time Procedure Status Source Growth 05/10/17 05:50 Aerobic Blood Culture Received Blood Peripheral Pending 05/10/17 05:50 Anaerobic Blood Culture Received Blood Peripheral Pending Result Diagram: 05/10/17 0545 05/10/17 0545 Imaging Last Impressions Chest X-Ray 05/10/1731 Signed Impressions: Service Date/Time: Wednesday, May 10, 2017 05:35 - CONCLUSION: Densities overlying the right upper lobe Mainor Escobedo MD Assessment and Plan Assessment and Plan 67 yo female presented with SOB & cough, CXR concerning for PNA, low pulse ox on admission. PNA/Hypoxia - given clinical hx, exam, and CXR concern initially for aspiration PNA - some renal insufficiency is present so will treat the patient with Flagyl 500 mg IV q8 & Amoxicillin 500 mg PO q8 - she is a chronic smoker, so reasonable to keep her O2 sat 88-92% - she is without fever and leukocytosis - blood cultures ordered, will also order urine legionella and pneumococcal RA & Gout - cont allopurinol 100 mg PO daily Parkinson Disease - cont home donepizil HTN - cont home meds: hcttz 25 mg BID. Hold lisinopril 20 mg daily, currently normotensive and has some renal insufficiency. FEN - Fluids: 500 cc NS @ 50 cc/hr, gentle hydration for some renal insufficiency, baseline <0.8 - Electrolytes: Na 130, IVF as above - Tolerated bed side swallow, full diet Hx IVDU - reported in EMR - UDS Tobacco use - counsled - nicotine patch dispo: 24 hrs of IV abx, anticipate switching to PO abx tomorrow and if respiratory status is better may go home tomorrow evening. plan discussed with patient. Code Status Full Discussed Condition With Christina Alvarenga MD May 10, 2017 07:39
[2017-05-10] MEDS ORDERED: NALOXONE HCL 0.4 MG/ML AMP IV PRN (07:45)
[2017-05-10] MEDS ORDERED: SODIUM CHLORIDE 0.9% FLUSH 10 ML FLUSH IV FLUSH PRN (07:45)
[2017-05-10] MEDS ORDERED: LACTULOSE SYRUP 20 GM/30 ML CUP PO PRN (07:45)
[2017-05-10] MEDS ORDERED: MAGNESIUM HYDROXIDE SUSP 30 ML CUP PO PRN (07:45)
[2017-05-10] MEDS ORDERED: BISACODYL 10 MG SUPP RECTAL PRN (07:45)
[2017-05-10] MEDS ORDERED: SENNOSIDES 8.6 MG TAB PO PRN (07:45)
[2017-05-10] MEDS: SODIUM CHLORIDE 0.9% FLUSH 10 ML FLUSH IV FLUSH SCH ×2 (10:15→21:00)
[2017-05-10] MEDS: DOCUSATE SODIUM 50 MG/SENNA 8.6 MG TAB PO SCH ×2 (10:15→21:24)
[2017-05-10] MEDS: metroNIDAZOLE 500 MG INJ 100 ML IV SCH ×3 (10:15→23:21)
[2017-05-10] MEDS: AMOXICILLIN (TRIHYDRATE) 500 MG CAP PO SCH ×3 (10:15→17:43)
[2017-05-10] MEDS ORDERED: ACETAMINOPHEN/HYDROcodone 325 MG/5 MG TAB PO PRN (14:00)
[2017-05-10] MEDS ORDERED: SODIUM CHLORID 0.9% 500 ML INJ 500 ML IV SCH (14:00)
[2017-05-10] MEDS: ALLOPURINOL 100 MG TAB PO SCH (15:15)
[2017-05-10] MEDS: MORPHINE SULFATE 30 MG CONTROLLED RELEASE TAB PO SCH (15:15)
[2017-05-10] MEDS: NICOTINE 7 MG/24 HR PATCH T-DERMAL SCH (17:42)
[2017-05-10 19:30] LABS: AMPHETAMINE, URINE NEG (NEG); BARBITURATES, URINE NEG (NEG); COCAINE, URINE NEG (NEG)
[2017-05-10] MEDS ORDERED: DONEPEZIL HCL 5 MG TAB PO SCH (21:00)
[2017-05-10] MEDS ORDERED: REMOVE OLD PATCH T-DERMAL SCH (21:00)
[2017-05-10] MEDS: HYDROCHLOROTHIAZIDE 25 MG TAB PO SCH (21:24)
[2017-05-11 04:26] VITALS: BP 128/67; PULSE 78; RESP 18; TEMP 98; O2SAT 98
--- NOTE | 2017-05-11 07:33 | HHI.PR ---
Subjective Remarks Patient seen and examined this am. Doing well, no complaints and no overnight events. 98% on 3 L nasal canula. Nurse reports room smelled like cigarettes. Patient crying when i entered room, stating her breakfast wasnt right and they sent her the wrong food for lunch. Objective Vital Signs Date Time Temp Pulse Resp B/P Pulse Ox O2 Delivery O2 Flow Rate FiO2 05/11/17 04:26 98.0 78 18 128/67 98 05/10/17 23:22 98.7 95 18 130/63 96 05/10/17 20:00 94 Nasal Cannula 3.00 05/10/17 19:55 98.5 89 20 132/66 94 05/10/17 16:25 17 05/10/17 15:20 98.6 92 16 117/67 93 05/10/17 11:17 99.5 97 20 120/73 93 05/10/17 09:00 98.0 100 16 127/68 93 05/10/17 08:06 90 16 98/68 97 Nasal Cannula 2 05/10/17 07:42 99 Nasal Cannula 3.00 I/O 05/10/17 05/10/17 05/10/17 05/11/17 05/11/17 05/11/17 07:00 15:00 23:00 07:00 15:00 23:00 Intake Total 240 ml 240 ml Output Total 350 ml Balance -110 ml 240 ml Intake Oral 240 ml 240 ml Output Urine Total 350 ml # Voids 1 Result Diagram: 05/10/17 0545 05/10/17 0545 Imaging Last Impressions Chest X-Ray 05/10/17 0531 Signed Impressions: Service Date/Time: Wednesday, May 10, 2017 05:35 - CONCLUSION: Densities overlying the right upper lobe Mainor Escobedo MD Objective Remarks GENERAL: sitting comfortably in bed, nad SKIN: Warm and dry. HEAD: Normocephalic. EYES: No scleral icterus. No injection or drainage. NECK: Supple, trachea midline. No JVD or lymphadenopathy. CARDIOVASCULAR: Regular rate and rhythm without murmurs, gallops, or rubs. RESPIRATORY: Breath sounds equal bilaterally. No accessory muscle use. GASTROINTESTINAL: Abdomen soft, non-tender, nondistended. MUSCULOSKELETAL: No cyanosis, or edema. BACK: Nontender without obvious deformity. No CVA tenderness. A/P Problem List: (1) Alcohol abuse ICD Code: F10.10 (2) Tobacco abuse ICD Code: Z72.0 (3) IV drug user ICD Code: F19.90 (4) DISHA (acute kidney injury) ICD Code: N17.9 (5) PNA (pneumonia) ICD Code: J18.9 Assessment and Plan 67 yo female presented with SOB & cough, CXR concerning for PNA, low pulse ox on admission. PNA/Hypoxia - Currently on Flagyl 500 mg IV q8 & Amoxicillin 500 mg PO q8--> d/c Start patient on 10 day course of PO Levaquin - she is a chronic smoker with hx of COPD per EMR, so reasonable to keep her O2 sat 88-92% - she is without fever and leukocytosis - blood cultures negative,urine legionella and pneumococcal negative - home walk test - duoneb RA & Gout - cont allopurinol 100 mg PO daily Parkinson Disease - cont home donepizil HTN - cont home meds: hcttz 25 mg BID. Hold lisinopril 20 mg daily, currently normotensive and has some renal insufficiency. FEN - Fluids: 500 cc NS @ 50 cc/hr, gentle hydration for some renal insufficiency, baseline <0.8 - Electrolytes: Na 130, IVF as above - Tolerated bed side swallow, full diet Hx IVDU - reported in EMR - UDS Tobacco use - counseled again - nicotine patch Discharge Planning D/C home, discussed with patient and nurse - home oxygen walk test pending Problem Qualifiers (1) PNA (pneumonia): Qualified Code: J18.1 - Pneumonia of right upper lobe due to infectious organism Christina Nails MD May 11, 2017 07:33
[2017-05-11 08:24] VITALS: BP 126/72; PULSE 96; RESP 16; TEMP 98.6; O2SAT 95
[2017-05-11] MEDS ORDERED: REMOVE OLD PATCH T-DERMAL SCH (09:00)
[2017-05-11] MEDS: AMOXICILLIN (TRIHYDRATE) 500 MG CAP PO SCH (09:05)
[2017-05-11] MEDS: DOCUSATE SODIUM 50 MG/SENNA 8.6 MG TAB PO SCH (09:06)
[2017-05-11] MEDS: MORPHINE SULFATE 30 MG CONTROLLED RELEASE TAB PO SCH (09:07)
[2017-05-11] MEDS: ALLOPURINOL 100 MG TAB PO SCH (09:07)
[2017-05-11] MEDS: HYDROCHLOROTHIAZIDE 25 MG TAB PO SCH (09:07)
[2017-05-11] MEDS: NICOTINE 7 MG/24 HR PATCH T-DERMAL SCH (09:07)
[2017-05-11] MEDS: metroNIDAZOLE 500 MG INJ 100 ML IV SCH (09:08)
[2017-05-11] MEDS: SODIUM CHLORIDE 0.9% FLUSH 10 ML FLUSH IV FLUSH SCH (09:09)
[2017-05-11 09:46] VITALS: O2SAT 96
[2017-05-11] MEDS: RESP: ALBUTEROL 2.5 MG/IPRATROPIUM 0.5 MG NEB (SCH) NEB ×2 (09:46→16:36)
[2017-05-11] MEDS ORDERED: PNEUMOCOCCAL POLYVALENT INJ 25 MCG/0.5 ML SYR IM ONE (10:00)
[2017-05-11] MEDS ORDERED: INFLUENZA VIRUS VACCINE (QUADRIVALENT) 0.5 ML SYR IM ONE (10:00)
[2017-05-11 13:25] VITALS: BP 117/70; PULSE 101; RESP 18; TEMP 98.7; O2SAT 95
[2017-05-11] MEDS ORDERED: LEVOFLOXACIN 750 MG TAB PO SCH (13:30)
--- NOTE | 2017-05-11 13:31 | HHI.DCPOC ---
Discharge Care Plan Diagnosis: (1) PNA (pneumonia) Goals to Promote Your Health * To prevent worsening of your condition and complications * To maintain your health at the optimal level Directions to Meet Your Goals Take your medications as prescribed Follow your dietary instruction Follow activity as directed Keep your appointments as scheduled Take your immunizations and boosters as scheduled If your symptoms worsen call your PCP, if no PCP go to Urgent Care Center or Emergency Room Smoking is Dangerous to Your Health. Avoid second hand smoke Call the 24-hour hour crisis hotline for domestic abuse at Christina Nails MD May 11, 2017 13:31
[2017-05-11] MEDS ORDERED: LEVA750T9 PO (13:32)
--- NOTE | 2017-05-11 14:16 | EKG ---
Date Performed: 05/10/2017 Time Performed: 05:49:52 PTAGE: 67 years EKG: Sinus rhythm POSSIBLE LEFT ATRIAL ENLARGEMENT LOW QRS VOLTAGE IN PRECORDIAL LEADS SEPTAL MYOCARDIAL INFARCTION Co nsider anteroseptal myocardial infarction - age indeterminate ABNORMAL ECG PREVIOUS TRACING : 01/16/2017 23.54 DOCTOR: Igor Keller Interpretating Date/Time 05/11/2017 14:15:54
[2017-05-11 16:03] VITALS: BP 131/77; PULSE 95; RESP 18; TEMP 98.6; O2SAT 94
== END 2017-05-11 19:07 | disposition home or self-care (01) | DRG 190 ==
LOC: NEPE 05:04 → NEDA 07:26 → NEPGCP 08:56 → OBSVTOIN 13:23
PROVIDERS: ADMIT Family Medicine; ATTEND Family Medicine
DX: J44.0 Chronic obstructive pulmonary disease with (acute) lower respiratory infection (principal); J18.9 Pneumonia, unspecified organism; N17.9 Acute kidney failure, unspecified; G20 Parkinson's disease; I11.0 Hypertensive heart disease with heart failure; I50.9 Heart failure, unspecified; D50.9 Iron deficiency anemia, unspecified; M10.9 Gout, unspecified; M06.9 Rheumatoid arthritis, unspecified; F10.10 Alcohol abuse, uncomplicated; F32.9 Major depressive disorder, single episode, unspecified; F17.210 Nicotine dependence, cigarettes, uncomplicated; F41.9 Anxiety disorder, unspecified; R09.02 Hypoxemia; Z86.19 Personal history of other infectious and parasitic diseases
CPT/HCPCS: 36600; 71010; 80048; 80307; 82805; 83605; 84484; 85025; 85610; 85730; 87040; 87449; 93005; 94150; 94620; 94640; 94664; 94667; 94668; J0696; J2930; J7040

== ENCOUNTER 2017-05-17 10:23 | Observation (INO) | payer MEDICARE, MEDICAID ==
[~2017-05-17] VITALS: Ht 175.3 cm; Wt 65.0 kg
[~2017-05-17 10:23] MED LIST changes: -ACET500T36 PO; -ALBU6.7H INH; +LEVA750T9 PO; -MEDR4PAK PO; -MISC-163; -VENTAER INH
[2017-05-17 10:27] VITALS: RESP 18; TEMP 99; O2SAT 92
[2017-05-17] MEDS ORDERED: methylPREDNISolone SOD SUCC 125 MG/2 ML VIAL IVP ONE (10:45)
[2017-05-17] MEDS ORDERED: SODIUM CHLORIDE 0.9% FLUSH 10 ML FLUSH IVF PRN ×3 (10:45→15:15)
--- NOTE | 2017-05-17 11:01 | RADRPT ---
EXAM DATE/TIME: 05/17/2017 10:43 [facility] COMPARISON: CHEST SINGLE AP, May 10, 2017, 5:35. INDICATIONS : Shortness of breath and cough. MEDICAL HISTORY : Congestive heart failure. SURGICAL HISTORY : None. ENCOUNTER: Initial ACUITY: 2 days PAIN SCORE: 0/10 LOCATION: Bilateral chest FINDINGS: A single view of the chest demonstrates the lungs to be symmetrically aerated without evidence of mas s, infiltrate or effusion. The cardiomediastinal contours are unremarkable. Osseous structures are intact. CONCLUSION: No acute disease. Parminder Valencia MD FACR on May 17, 2017 at 10:58 Board Certified Radiologist. This report was verified electronically.
[2017-05-17 11:08] LABS: AUTOMATED NEUTROPHIL # 6.3 TH/MM3 (1.8-7.7); BASOPHIL % 0.4 % (0.0-2.0); HEMATOCRIT 41.8 % (35.0-46.0); HEMO FLAGS DIFF FINAL; LYMPH % 16.5 % (9.0-44.0); LYMPHOCYTE # 1.5 TH/MM3 (1.0-4.8); MEAN CELL VOLUME 88.5 FL (80.0-100.0); MEAN CORPUSCULAR HEMOGLOBIN 29.3 PG (27.0-34.0); MEAN CORPUSCULAR HGB CONC 33.1 % (32.0-36.0); MONO % 11.1 % (0.0-8.0); PLATELET COUNT 150 TH/MM3 (150-450); RED BLOOD COUNT 4.72 MIL/MM3 (4.00-5.30); RED CELL DISTRIBUTION WIDTH 15.7 % (11.6-17.2); WHITE BLOOD COUNT 8.8 TH/MM3 (4.0-11.0)
[2017-05-17] MEDS: RESP: ALBUTEROL 2.5 MG/IPRATROPIUM 0.5 MG NEB (SCH) INH ×4 (11:13→20:58)
--- NOTE | 2017-05-17 11:27 | PD ---
HPI Chief Complaint: Respiratory Distress Time Seen by Provider: 10:33 Travel History International Travel<30 days: No Contact w/Intl Traveler<30days: No Traveled to known affect area: No History of Present Illness HPI 67-year-old female presents with shortness of breath over the past couple of days. She has not used her inhalers or nebulizers as they are hard to access. She states she lives with her son and his girlfriend. She is a poor historian and there is report that she has dementia. She states she took her antibiotics from her recent pneumonia admission. She states she just generally is been coughing up a lot and wanted to get checked out. PFSH Past Medical History Alzheimer's Disease: Yes Anemia: Yes (IRON DEFICIENCY ANEMIA CHRONIC) Arthritis: Yes (rheumatoid) Asthma: No Autoimmune Disease: No Blood Disorders: Yes (RECTAL BLEEDING (1 YEAR AGO)) Anxiety: Yes Depression: Yes Heart Rhythm Problems: No Cancer: No Cardiovascular Problems: Yes (CHF) High Cholesterol: Yes Chest Pain: No Congestive Heart Failure: Yes COPD: No Dementia: Yes Diabetes: No Diminished Hearing: No Endocrine: No Gastrointestinal Disorders: Yes (mass on liver) Genitourinary: No Hepatitis: Yes (C secondary to IV drug abuse, B (questionable)) Hiatal Hernia: Yes (REPAIR) Hypertension: Yes Immune Disorder: No Implanted Vascular Access Dvce: No Musculoskeletal: Yes (R LEG PAIN, R HIP PAIN) Neurologic: Yes (DEMENTIA) Psychiatric: Yes (ADDICTION TO OPIOID & DEPRESSION) Reproductive: No Respiratory: Yes (PNA, BRONCHITIS) Immunizations Current: Yes Sleep Apnea: No Thyroid Disease: No Ulcer: Yes Menopausal: Yes : 5 Para: 3 : 2 Past Surgical History Abdominal Surgery: Yes (INGUINAL HERNIA REPAIR) Section: Yes (X1) Gynecologic Surgery: Yes Pacemaker: No Other Surgery: Yes (fx nose, fx ankle) Social History Alcohol Use: Yes (OCC) Tobacco Use: Yes (1 PPD) Substance Use: No Allergies-Medications (Allergen,Severity, Reaction): Coded Allergies: No Known Allergies (Verified , 05/17/17) Reported Meds & Prescriptions Reported Meds & Active Scripts Active Pantoprazole (Pantoprazole Sodium) 40 Mg Tab 40 Mg PO Q12HR Reported Hydrochlorothiazide 25 Mg Tab 25 Mg PO BID Lisinopril 20 Mg Tab 20 Mg PO DAILY Morphine ER (Morphine Sulfate) 60 Mg Tab 60 Mg PO DAILY IN THE PM Morphine ER (Morphine Sulfate) 30 Mg Tab 30 Mg PO DAILY IN THE AM Donepezil 10 Mg Tab 10 Mg PO HS Allopurinol 100 Mg Tab 100 Mg PO DAILY Review of Systems ROS Limitations: Poor Historian Except as stated in HPI: all other systems reviewed are Neg Physical Exam Narrative GENERAL: Well-nourished, well-developed patient. SKIN: Warm and dry. HEAD: Normocephalic and atraumatic. EYES: No injection or drainage. ENT: No nasal drainage noted. NECK: Supple, trachea midline. CARDIOVASCULAR: Mild tachycardia and regular rhythm RESPIRATORY: mild Expiratory wheezing bilaterally. No accessory muscle use. GASTROINTESTINAL: Abdomen soft,nondistended NEUROLOGICAL: Awake and alert. Motor and sensory grossly within normal limits. Normal speech. Data Data Last Documented VS Vital Signs Date Time Temp Pulse Resp B/P Pulse Ox O2 Delivery O2 Flow Rate FiO2 05/17/17 10:40 117 18 92 Room Air 05/17/17 10:27 99.0 Orders Electrocardiogram (05/17/17 10:42) Basic Metabolic Panel (Bmp) (05/17/17 10:42) Complete Blood Count With Diff (05/17/17 10:42) Lactic Acid Sepsis Protocol (05/17/17 10:42) Influenzae A/B Antigen (05/17/17 10:42) Chest, Single Ap (05/17/17 10:42) Ecg Monitoring (05/17/17 10:42) Iv Access Insert/Monitor (05/17/17 10:42) Oximetry (05/17/17 10:42) Sodium Chloride 0.9% Flush (Ns Flush) (05/17/17 10:45) B-Type Natriuretic Peptide (05/17/17 10:42) Sodium Chloride 0.9% Flush (Ns Flush) (05/17/17 10:45) Methylprednisolone So Succ Inj (Solumedr (05/17/17 10:45) Albuterol-Ipratropium Neb (Duoneb Neb) (05/17/17 10:45) Sodium Chlorid 0.9% 500 Ml Inj (Ns 500 M (05/17/17 11:45) Vascular Access Team Consult/P PRN (05/17/17 12:50) Vascular Poc Ultrasound (05/17/17 ) Iohexol 350 Inj (Omnipaque 350 Inj) (05/17/17 14:39) Ct Pulmonary Angiogram (05/17/17 ) Blood Culture (05/17/17 15:15) Sodium Chloride 0.9% Flush (Ns Flush) (05/17/17 15:15) Cefepime Inj (Maxipime Inj) (05/17/17 15:15) Azithromycin Inj (Zithromax Inj) (05/17/17 15:15) Admit Order (Ed Use Only) (05/17/17 15:37) Labs Laboratory Tests Test 05/17/17 10:47 White Blood Count 8.8 TH/MM3 Red Blood Count 4.72 MIL/MM3 Hemoglobin 13.8 GM/DL Hematocrit 41.8 % Mean Corpuscular Volume 88.5 FL Mean Corpuscular Hemoglobin 29.3 PG Mean Corpuscular Hemoglobin 33.1 % Concent Red Cell Distribution Width 15.7 % Platelet Count 150 TH/MM3 Mean Platelet Volume 9.6 FL Neutrophils (%) (Auto) 72.0 % Lymphocytes (%) (Auto) 16.5 % Monocytes (%) (Auto) 11.1 % Eosinophils (%) (Auto) 0.0 % Basophils (%) (Auto) 0.4 % Neutrophils # (Auto) 6.3 TH/MM3 Lymphocytes # (Auto) 1.5 TH/MM3 Monocytes # (Auto) 1.0 TH/MM3 Eosinophils # (Auto) 0.0 TH/MM3 Basophils # (Auto) 0.0 TH/MM3 CBC Comment DIFF FINAL Differential Comment Sodium Level 133 MEQ/L Potassium Level 4.0 MEQ/L Chloride Level 106 MEQ/L Carbon Dioxide Level 17.1 MEQ/L Anion Gap 10 MEQ/L Blood Urea Nitrogen 32 MG/DL Creatinine 1.41 MG/DL Estimat Glomerular Filtration 45 ML/MIN Rate Random Glucose 106 MG/DL Lactic Acid Level 1.7 mmol/L Calcium Level 9.2 MG/DL B-Type Natriuretic Peptide 391 PG/ML MDM Medical Decision Making Medical Screen Exam Complete: Yes Emergency Medical Condition: Yes Medical Record Reviewed: Yes (past history confirmed) Interpretation(s) CBC & BMP Diagram 05/17/17 10:47 Last 24 hours Impressions Chest X-Ray 05/17/17 1042 Signed Impressions: Service Date/Time: Wednesday, May 17, 2017 10:43 - CONCLUSION: No acute disease. Parimnder Valencia MD FACR CT Angiography 05/17/17 0000 Signed Impressions: Service Date/Time: Wednesday, May 17, 2017 14:28 - CONCLUSION: 1. No evidence of pulmonary embolism. 2. Alveolar consolidation with air bronchograms in the right middle lobe consistent with lobar pneumonia or collapse. Clinical correlation is recommended. 3. Cardiomegaly and coronary artery calcifications. 4. Nodular enlarged liver consistent with cirrhosis. 5. Splenomegaly. Garcia Bolaños MD Differential Diagnosis COPD, anemia, renal failure, pneumonia, URI Narrative Course Will check blood work, chest x-ray and reevaluate after DuoNeb's and Solu-Medrol Patient still with tachycardia Will add on CT chest to rule out PE CT chest shows right middle lobe bronchogram concerning for possible pneumonia. Given recent hospitalization will dose with hospital-acquired coverage and she will be admitted to the hospital for further care. Patient has dementia and on review of records I do not see COPD listed her expiratory wheezing maybe related to her current respiratory infection but she has no concerning signs of lactic acidosis or high fever or white count here. Physician Communication Physician Communication dr briones agrees to admit Diagnosis Primary Impression: PNA (pneumonia) Qualified Code: J18.1 - Pneumonia of right middle lobe due to infectious organism Additional Impression: Tachycardia Admitting Information Admitting Physician Requests: La Nena Kolb MD May 17, 2017 11:27
[2017-05-17 11:32] LABS: BICARBONATE 17.1 MEQ/L (21.0-32.0)
[2017-05-17] MEDS ORDERED: SODIUM CHLORID 0.9% 500 ML INJ 500 ML IV ONE (11:45)
[2017-05-17 12:30] VITALS: BP 111/63; PULSE 94; RESP 18; O2SAT 96
[2017-05-17] MEDS ORDERED: IOHEXOL 350 MG/ML 10 ML VIAL (for RAD DIAG) IV ONE (14:39)
--- NOTE | 2017-05-17 15:09 | RADRPT ---
EXAM DATE/TIME: 05/17/2017 14:28 [facility] COMPARISON: CT PULMONARY ANGIOGRAM, September 14, 2016, 6:37. INDICATIONS : Shortness of breath. IV CONTRAST: 62 cc Omnipaque 350 (iohexol) IV RADIATION DOSE: 23.01 CTDIvol (mGy) MEDICAL HISTORY : Cardiovascular disease. Hypertension. Congestive heart failure. SURGICAL HISTORY : None. ENCOUNTER: Initial ACUITY: 1 day PAIN SCALE: 3/10 LOCATION: Bilateral chest TECHNIQUE: Volumetric scanning of the chest was performed using a pulmonary embolism protocol MIP images were re constructed. Using automated exposure control and adjustment of the mA and/or kV according to patien t size, radiation dose was kept as low as reasonably achievable to obtain optimal diagnostic quality images. DICOM format image data is available electronically for review and comparison. Follow-up recommendations for incidentally detected pulmonary nodules are based at a minimum on nodul e size and patient risk factors according to Fleischner Society Guidelines. FINDINGS: PULMONARY ARTERIES: No filling defects are seen in the pulmonary arteries through the segmental level. LUNGS: There is alveolar consolidation with air bronchograms in the region of the right middle lobe consiste nt with lobar pneumonia or right middle lobe collapse. Clinical correlation is recommended. PLEURAE: There is no pleural thickening or pleural effusion. MEDIASTINUM: There is good visualization of the great vessels of the middle mediastinum. No evidence of mediastin al or hilar adenopathy/mass. Cardiomegaly and coronary artery calcifications are noted. MUSCULOSKELETAL: Within normal limits for patient age. MISCELLANEOUS: The visualized upper abdominal organs demonstrate no acute abnormality. The liver is nodular in conto ur and enlarged consistent with cirrhosis. The spleen is also enlarged. CONCLUSION: 1. No evidence of pulmonary embolism. 2. Alveolar consolidation with air bronchograms in the right middle lobe consistent with lobar pneumo karen or collapse. Clinical correlation is recommended. 3. Cardiomegaly and coronary artery calcifications. 4. Nodular enlarged liver consistent with cirrhosis. 5. Splenomegaly. Garcia Bolaños MD on May 17, 2017 at 15:03 Board Certified Radiologist. This report was verified electronically.
[2017-05-17] MEDS ORDERED: AZITHROMYCIN INJ 500 MG in SODIUM CHLOR 0.9% 250 ML INJ 250 ML IV ONE (15:15)
[2017-05-17] MEDS ORDERED: CEFEPIME INJ 2,000 MG in SODIUM CHLORIDE 0.9% INJ 100 ML IV ONE (15:15)
[2017-05-17] MEDS ORDERED: SODIUM CHLORIDE 0.9% FLUSH 10 ML FLUSH IV FLUSH PRN (16:00)
[2017-05-17] MEDS ORDERED: RESP: ALBUTEROL 2.5 MG/3 ML NEB (PRN) INH (16:00)
[2017-05-17] MEDS ORDERED: cloNIDine HCL 0.1 MG TAB PO PRN (16:00)
--- NOTE | 2017-05-17 16:07 | HHI.HP ---
HPI Service [facility] Primary Care Physician Mainor Bills MD Admission Diagnosis alveolar consolidation with air bronchograms right middle lobe, COPD Diagnoses: Chief Complaint: Shortness of breath Travel History International Travel<30 Days: No Contact w/Intl Traveler <30 Da: No Traveled to Known Affected Are: No History of Present Illness 67-year-old female with a past medical history of GERD, HTN, COPD, dementia, gout, rheumatoid arthritis and chronic pain who presented with shortness of breath. Patient was recently discharged from the hospital after 1 night stay with pneumonia. She doesn't feel like she improved since the previous hospitalization. She continues to complain of chest congestion, generalized body aches, and shortness of breath. She states her temperature was 99 at home. She denies any chills. She is having a cough that is productive with white and green phlegm. She is still on a course of Levaquin since previous hospitalization. She states that she has albuterol and a nebulizer machine at home, but she cannot find them so she has not been using them. The patient is satting 92% on room air similar to previous hospitalization. She does still continue to smoke. She is asking to be admitted to the hospital and to have Mucinex and a regular diet. Review of Systems Except as stated in HPI: all other systems reviewed are Neg Past Family Social History Past Medical History GERD Dementia Hypertension Gout Rheumatoid arthritis with chronic hip pain Past Surgical History Hernia repair Reported Medications Levaquin (Levofloxacin) 750 Mg Tablet 750 Mg PO DAILY Pantoprazole (Pantoprazole Sodium) 40 Mg Tab 40 Mg PO Q12HR Hydrochlorothiazide 25 Mg Tab 25 Mg PO BID Lisinopril 20 Mg Tab 20 Mg PO DAILY Morphine ER (Morphine Sulfate) 60 Mg Tab 60 Mg PO DAILY IN THE PM Morphine ER (Morphine Sulfate) 30 Mg Tab 30 Mg PO DAILY IN THE AM Donepezil 10 Mg Tab 10 Mg PO HS Allopurinol 100 Mg Tab 100 Mg PO DAILY Allergies: Coded Allergies: No Known Allergies (Verified , 05/17/17) Active Ordered Medications Current Medications Medications (Trade) Dose Ordered Sig/Rock Route Start Time Stop Time Status Last Admin (NS Flush) 2 ml UNSCH PRN IVF 05/17/17 10:45 (NS Flush) 2 ml UNSCH PRN IVF 05/17/17 10:45 Sodium Chloride 2 ml 2 ml UNSCH PRN IVF 05/17/17 15:15 (Zithromax Inj/ NS 250 ml Inj) 250 ml @ 250 mls/hr ONCE ONCE IV 05/17/17 15:15 05/17/17 16:14 Family History The patient states her mother and father committed suicide at separate times Social History Tobacco abuse, last smoked a few days ago Occasional alcohol use Lives at home with her son and his girlfriend Physical Exam Vital Signs Vital Signs Date Time Temp Pulse Resp B/P Pulse Ox O2 Delivery O2 Flow Rate FiO2 05/17/17 10:40 117 18 92 Room Air 05/17/17 10:27 99.0 18 92 Physical Exam GENERAL: Well-developed well-nourished. In no acute distress. SKIN: Warm and dry. No lesions noted. HEENT: Normocephalic. Pupils equal and round. Mucous membranes pink and moist. CARDIOVASCULAR: Regular rate and rhythm. No murmur appreciated. RESPIRATORY: No accessory muscle use. Clear to auscultation. Breath sounds equal bilaterally. No wheezing. GASTROINTESTINAL: Abdomen soft, non-tender, nondistended. Bowel sounds x4. MUSCULOSKELETAL: No obvious deformities. No clubbing or cyanosis. No edema. NEUROLOGICAL: Awake and alert. No focal neurological deficits. Moves upper and lower extremities spontaneously. Normal speech. PSYCHIATRIC: Appropriate mood and affect; insight and judgment normal. Laboratory Laboratory Tests Test 05/17/17 10:47 White Blood Count 8.8 Red Blood Count 4.72 Hemoglobin 13.8 Hematocrit 41.8 Mean Corpuscular Volume 88.5 Mean Corpuscular Hemoglobin 29.3 Mean Corpuscular Hemoglobin 33.1 Concent Red Cell Distribution Width 15.7 Platelet Count 150 Mean Platelet Volume 9.6 Neutrophils (%) (Auto) 72.0 Lymphocytes (%) (Auto) 16.5 Monocytes (%) (Auto) 11.1 Eosinophils (%) (Auto) 0.0 Basophils (%) (Auto) 0.4 Neutrophils # (Auto) 6.3 Lymphocytes # (Auto) 1.5 Monocytes # (Auto) 1.0 Eosinophils # (Auto) 0.0 Basophils # (Auto) 0.0 CBC Comment DIFF FINAL Differential Comment Sodium Level 133 Potassium Level 4.0 Chloride Level 106 Carbon Dioxide Level 17.1 Anion Gap 10 Blood Urea Nitrogen 32 Creatinine 1.41 Estimat Glomerular Filtration 45 Rate Random Glucose 106 Lactic Acid Level 1.7 Calcium Level 9.2 B-Type Natriuretic Peptide 391 Date/Time Procedure Status Source Growth 05/17/17 10:50 Influenza Types A,B Antigen (MARISA) - Final Complete Nasal Washing NEGATIVE FOR FLU A AND B ANTIGEN.... Result Diagram: 05/17/17 1047 05/17/17 1047 Imaging Last Impressions Chest X-Ray 05/17/17 1042 Signed Impressions: Service Date/Time: Wednesday, May 17, 2017 10:43 - CONCLUSION: No acute disease. Parminder Valencia MD FACR CT Angiography 05/17/17 0000 Signed Impressions: Service Date/Time: Wednesday, May 17, 2017 14:28 - CONCLUSION: 1. No evidence of pulmonary embolism. 2. Alveolar consolidation with air bronchograms in the right middle lobe consistent with lobar pneumonia or collapse. Clinical correlation is recommended. 3. Cardiomegaly and coronary artery calcifications. 4. Nodular enlarged liver consistent with cirrhosis. 5. Splenomegaly. Garcia Bolaños MD Assessment and Plan Assessment and Plan 67-year-old female with a past medical history of GERD, HTN, COPD, dementia, gout, rheumatoid arthritis and chronic pain who presented with shortness of breath Pneumonia/COPD exacerbation: Pulmonary x-ray and CT showed right middle lobe infiltrate, similar to previous chest x-ray 7 days ago; likely too early for resolution on repeat imaging. The patient has completed 6/10 days of Levaquin prescription as outpatient. Afebrile with no leukocytosis. Satting well on room air. Reportedly wheezing in the ED and received IV steroids, no further wheezing. Has not been using home inhalers and continues to smoke. Walk test last week performed with no hypoxia. -Change antibiotics to oral azithromycin and IV ceftriaxone for now with plan to transition to oral at discharge -Oral prednisone 3 days -Scheduled and as needed nebs. Case management consult to assist with nebulizer prescriptions at discharge. -Guaifenesin for cough -Counseled on tobacco cessation -Check sputum culture DISHA: Creatinine 1.41, previously 1.03 on 05/10/17. Hold home HCTZ, allopurinol, and lisinopril. IVF. Follow-up BMP. Hypertension: Chronic. BP is currently controlled. Holding HCTZ and lisinopril as above. Clonidine as needed. GERD: Chronic, stable. Continue PPI. Chronic pain secondary to rheumatoid arthritis: UDS on previous admission positive for only opioids. Continue home extended release morphine. DVT prophylaxis: SCDs Patient seen and examined with Dr. Chaney. Discussed Condition With Patient, ED staff, Dr. Chaney Attending Statement The exam, history, and the medical decision-making described in the above note were completed with the assistance of the mid-level provider. I reviewed and agree with the findings presented. I attest that I had a [id number] encounter with the patient on the same day, and personally performed and documented my assessment and findings in the medical record. Patient complaining of chest congestion and cough. She was seen about a week ago due to pneumonia. Patient was discharged on Levaquin. She stated that she continues to have cough and congestion. Denies any fevers. But she said last of which was 99. Patient also stated that she lost her nebulizer. Patient asking for regular diet. Patient continues to smoke. Gen thin female in no acute distress. CV regular rate and rhythm no rubs murmurs or gallops Respiratory clear to auscultation bilaterally. There is no cough. Respiratory rate is normal. She is not using any accessory muscle. Abdomen soft nondistended and nontender no prostatomegaly. Assessment/plan Pneumonia/bronchitis Tobacco use Acute renal sufficiency, mildly elevated Clinically patient does look well. Her oxygen saturation is 92% on room air which is stable from her prior admission. He has COPD in which her oxygenation can go down to 88%. She is in no distress. Most likely she has a pneumonia/ bronchitis secondary to her continue use of tobacco. Encourage patient to stop using tobacco if she wants her symptoms to improve. Will give her Mucinex. Will put patient on antibiotics. Give IV fluids and monitor creatinine. Most likely patient can be discharged tomorrow. Michael Valencia May 17, 2017 16:07 Yasmine Chaney MD May 17, 2017 16:42
[2017-05-17] MEDS: predniSONE 20 MG TAB PO SCH (16:22)
[2017-05-17] MEDS: SODIUM CHLOR 0.9% 1000 ML INJ 1,000 ML IV SCH (16:22)
[2017-05-17 16:56] VITALS: BP 115/78; PULSE 102; RESP 18; O2SAT 96
[2017-05-17 18:00] VITALS: BP 114/69; PULSE 102; RESP 16; TEMP 98.8; O2SAT 94
[2017-05-17 20:36] VITALS: BP 105/63; PULSE 97; RESP 19; TEMP 97.6; O2SAT 97
[2017-05-17] MEDS ORDERED: DONEPEZIL HCL 5 MG TAB PO SCH (21:00)
[2017-05-17] MEDS: PANTOPRAZOLE SOD 40 MG DELAYED RELEASE TAB PO SCH (21:00)
[2017-05-17] MEDS ORDERED: MORPHINE SULFATE 60 MG CONTROLLED RELEASE TAB PO SCH (21:00)
[2017-05-17] MEDS: guaiFENesin E.R. 600 MG TAB PO SCH (21:46)
[2017-05-17] MEDS: SODIUM CHLORIDE 0.9% FLUSH 10 ML FLUSH IV FLUSH SCH (21:47)
[2017-05-18] VITALS (10 sets, daily range): BP systolic 115–137; BP diastolic 63–82; PULSE 92–115; RESP 16–22; TEMP 97.6–98.6; O2SAT 93–96
[2017-05-18] MEDS ORDERED: XANA1TAB2 PO (01:42)
[2017-05-18] MEDS: RESP: ALBUTEROL 2.5 MG/IPRATROPIUM 0.5 MG NEB (SCH) INH ×2 (03:09→07:26)
[2017-05-18] MEDS: SODIUM CHLOR 0.9% 1000 ML INJ 1,000 ML IV SCH (03:46)
[2017-05-18] MEDS ORDERED: NALOXONE HCL 0.4 MG/ML AMP IV PUSH PRN (05:15)
[2017-05-18 05:40] LABS: BICARBONATE 18.4 MEQ/L (21.0-32.0)
[2017-05-18 05:50] LABS: POTASSIUM 2.8 MEQ/L (3.5-5.1)
[2017-05-18] MEDS ORDERED: POTASSIUM CHLORIDE 10 MEQ CONTROLLED RELEASE TAB PO ONE (06:00)
[2017-05-18] MEDS ORDERED: POTASSIUM CHLORIDE 25 MEQ EFFERVESCENT TAB PO ONE (06:00)
--- NOTE | 2017-05-18 06:00 | HHI.PR ---
Addendum to Inpatient Note Addendum Reason: Additional Documentation Additional Information Notified by RN that the patient had locked herself in the bathroom in the CDU and was found with a large number of drugs and a couple of needles hidden in her walker tray and additional narcotics were found in her purse/bag. The patient now is wanting to leave against medical advice. I saw the patient in the CDU. She does not appear impaired, she is alert, oriented, and awake. She demonstrates insight into her medical condition. She is aware that leaving against medical advice could result in worsening of her illness and even but states she wants to go home anyway. She denies injecting any medications into her IV. She states she initially planned to do this in the bathroom but got nervous (nurse used a vega to unlock the door) and only took one of her Dilaudid tablets orally. She reports this as a home medication though it is not on her home medication list - she does have long acting morphine and Xanax on her home medication list. She plans to take a taxi cab home and has money to do so. We cannot hold this patient against her will. If the patient returns for admission/ER visits in the future, I would recommend that her belongings be locked up by security or, at least, that they get inspected by staff for hidden narcotics to avoid an incidence like this. Shanon Springer May 18, 2017 06:00
[2017-05-18] MEDS: SODIUM CHLORIDE 0.9% FLUSH 10 ML FLUSH IV FLUSH SCH (08:43)
--- NOTE | 2017-05-18 08:43 | HHI.PR ---
Subjective Remarks Follow up for shortness of breath, pneumonia. The patient reports feeling better today, denies any further shortness of breath. Still with occasional productive cough, white sputum (seen by me). O2 sat stable on room air. Denies fevers/chills. Denies chest pains. Of note, last night patient found locked in the bathroom with street drugs including dilaudid, benzos, suspected meth, and drug paraphernalia with needles/syringes. The patient admits she was going to inject however took an oral dilaudid instead. She threatened to leave AMA however stayed after she was told her potassium was critically low and she could . The patient still wants to leave when her potassium is improved. She has no other medical complaints at this time. Objective Vitals Vital Signs Date Time Temp Pulse Resp B/P Pulse Ox O2 Delivery O2 Flow Rate FiO2 05/18/17 07:26 95 21 05/18/17 07:17 98.1 93 16 115/68 94 05/18/17 06:38 96 18 120/80 94 05/18/17 06:34 92 05/18/17 06:14 97 18 127/82 95 05/18/17 05:23 97.8 100 18 135/81 95 05/18/17 04:46 97.6 115 22 137/69 96 05/18/17 00:07 97.8 94 18 116/75 96 05/17/17 21:00 21 05/17/17 20:36 97.6 97 19 105/63 97 05/17/17 18:00 98.8 102 16 114/69 94 05/17/17 16:56 102 18 115/78 96 Room Air 05/17/17 12:30 94 18 111/63 96 Room Air 05/17/17 10:40 117 18 92 Room Air 05/17/17 10:27 99.0 18 92 Result Diagram: 05/17/17 1047 05/18/17 0418 Imaging Last Impressions Chest X-Ray 05/17/17 1042 Signed Impressions: Service Date/Time: Wednesday, May 17, 2017 10:43 - CONCLUSION: No acute disease. Parminder Valencia MD FACR CT Angiography 05/17/17 0000 Signed Impressions: Service Date/Time: Wednesday, May 17, 2017 14:28 - CONCLUSION: 1. No evidence of pulmonary embolism. 2. Alveolar consolidation with air bronchograms in the right middle lobe consistent with lobar pneumonia or collapse. Clinical correlation is recommended. 3. Cardiomegaly and coronary artery calcifications. 4. Nodular enlarged liver consistent with cirrhosis. 5. Splenomegaly. Garcia Bolaños MD Objective Remarks GENERAL: Well-nourished, well-developed female patient in NAD. SKIN: Warm and dry. No rash. HEENT: Normocephalic. Atraumatic. Pupils equal and round. Mucous membranes pink and moist. NECK: Supple. Trachea midline. CARDIOVASCULAR: Regular rate and rhythm. S1, S2 noted. No murmur appreciated. RESPIRATORY: No accessory muscle use. Clear to auscultation. No wheezing. Breath sounds equal bilaterally. GASTROINTESTINAL: Abdomen soft, non-tender, nondistended. Normoactive bowel sounds x4. MUSCULOSKELETAL: No obvious deformities. Extremities without clubbing, cyanosis , or edema. Bilateral calves nontender. NEUROLOGICAL: Awake and alert. No obvious cranial nerve deficits. Motor grossly within normal limits. Normal speech. PSYCHIATRIC: Appropriate mood and affect; insight and judgment normal. Medications and IVs Current Medications Medications (Trade) Dose Ordered Sig/Rock Route Start Time Stop Time Status Last Admin (Aricept) 10 mg HS PO 05/17/17 21:00 05/17/17 21:46 (Oramorph Sr) 30 mg DAILY PO 05/18/17 09:00 Hold (Oramorph Sr) 60 mg HS PO 05/17/17 21:00 Pantoprazole Sodium 40 mg 40 mg Q12HR PO 05/17/17 21:00 05/18/17 08:44 (NS 1000 ml Inj) 1,000 ml @ 75 mls/hr [id number] IV 05/17/17 15:50 05/18/17 03:46 (NS Flush) 2 ml BID IV FLUSH 05/17/17 21:00 05/17/17 21:47 (NS Flush) 2 ml UNSCH PRN IV FLUSH 05/17/17 16:00 (Deltasone) 20 mg DAILY PO 05/17/17 16:00 05/18/17 08:44 Azithromycin 500 mg 500 mg Taper Q24H PO 05/18/17 16:00 05/23/17 15:59 (Rocephin Inj/NS Inj) 100 ml @ 200 mls/hr Q24H IV 05/18/17 09:00 05/18/17 08:43 (Catapres) 0.1 mg Q6H PRN PO 05/17/17 16:00 (Mucinex Er) 600 mg BID PO 05/17/17 21:00 05/18/17 08:44 (Pneumovax-23 Inj) 25 mcg ONCE ONCE IM 05/18/17 10:00 05/18/17 10:01 05/18/17 08:45 A/P Assessment and Plan 67-year-old female with a past medical history of GERD, HTN, COPD, dementia, gout, rheumatoid arthritis and chronic pain who presented with shortness of breath Pneumonia/COPD exacerbation: Failed Outpatient. CXR and CT showed right middle lobe infiltrate, similar to previous CXR 7 days ago; likely too early for resolution on repeat imaging. The patient has completed 6 days of Levaquin prescription as outpatient. Afebrile, no leukocytosis. O2 sat stable on room air. Reportedly wheezing in the ED and received IV steroids, no further wheezing. Has not been using home inhalers and continues to smoke. Walk test last week performed with no hypoxia. -Change antibiotics to oral azithromycin and IV ceftriaxone for now with plan to transition to oral Ceftin/Azithro at discharge -Oral prednisone 3 days -Scheduled and as needed nebs. -Case management consult to assist with nebulizer arrangements at discharge. -Guaifenesin for cough -Counseled on tobacco cessation -Check sputum culture -much improved, O2 sat stable on room air, stable for discharge DISHA: Creatinine 1.41, previously 1.03 on 05/10/17. Hold home HCTZ, allopurinol, and lisinopril. IVF. Follow-up BMP. Hypertension: Chronic. BP is currently controlled. Holding HCTZ and lisinopril as above. Clonidine as needed. GERD: Chronic, stable. Continue PPI. Chronic pain secondary to rheumatoid arthritis: UDS on previous admission positive for only opioids. Continue home extended release morphine. Hypokalemia: K 2.8, likely secondary to recent poor oral intake, patient admits to not having appetite while being sick. Given total 80meq KCl. Mag wnl. Repeat BMP pending. DVT prophylaxis: SCDs Discharge Planning 0830hrs: Stable for discharge from pulmonary aspect however K 2.8 this morning. Given KCl. Awaiting repeat BMP. Likely discharge if electrolytes wnl. Case management to arrange nebulizer prior to discharge. 1200hrs: Repeat potassium 4.1. Patient stable for discharge. Prescriptions sent to [facility] pharmacy per patient request. Discharge patient to home Condition on discharge: Improved Heart Healthy Diet as tolerated Ad [place] activity Rx written: Prednisone 20mg daily x3days, Azithro 500mg daily x3 days, Cefuroxime 500mg bid x7days, Duonebs q6h, Mucinex bid Follow-up with primary care physician within 1 week Calista Salguero PA-C May 18, 2017 8:42 am
[2017-05-18] MEDS: predniSONE 20 MG TAB PO SCH (08:44)
[2017-05-18] MEDS: PANTOPRAZOLE SOD 40 MG DELAYED RELEASE TAB PO SCH (08:44)
[2017-05-18] MEDS: guaiFENesin E.R. 600 MG TAB PO SCH (08:44)
[2017-05-18] MEDS ORDERED: MORPHINE SULFATE 30 MG CONTROLLED RELEASE TAB PO SCH (09:00)
[2017-05-18] MEDS ORDERED: cefTRIAXone INJ 1,000 MG in SODIUM CHLORIDE 0.9% INJ 100 ML IV SCH (09:00)
[2017-05-18] MEDS ORDERED: NEBULIZER1 MI1 (09:11)
[2017-05-18] MEDS ORDERED: PRED20 PO ×2 (09:42→12:40)
[2017-05-18] MEDS ORDERED: IPRASOL INH ×2 (09:42→12:40)
[2017-05-18] MEDS ORDERED: AZIT250T3 PO ×2 (09:42→12:40)
[2017-05-18] MEDS ORDERED: CEFU1TAB20 PO ×2 (09:42→12:40)
[2017-05-18] MEDS ORDERED: guaiFENesin ER PO ×2 (09:42→12:40)
--- NOTE | 2017-05-18 09:43 | HHI.DCPOC ---
Discharge Care Plan Diagnosis: (1) PNA (pneumonia) (2) COPD (chronic obstructive pulmonary disease) Goals to Promote Your Health * To prevent worsening of your condition and complications * To maintain your health at the optimal level Directions to Meet Your Goals Take your medications as prescribed Follow your dietary instruction Follow activity as directed Keep your appointments as scheduled Take your immunizations and boosters as scheduled If your symptoms worsen call your PCP, if no PCP go to Urgent Care Center or Emergency Room Smoking is Dangerous to Your Health. Avoid second hand smoke Call the 24-hour hour crisis hotline for domestic abuse at Calista Salguero PA-C May 18, 2017 9:43 am
[2017-05-18] MEDS ORDERED: PNEUMOCOCCAL POLYVALENT INJ 25 MCG/0.5 ML SYR IM ONE (10:00)
[2017-05-18] MEDS ORDERED: INFLUENZA VIRUS VACCINE (QUADRIVALENT) 0.5 ML SYR IM ONE (10:00)
[2017-05-18 11:54] LABS: BICARBONATE 19.8 MEQ/L (21.0-32.0); POTASSIUM 4.1 MEQ/L (3.5-5.1)
--- NOTE | 2017-05-18 15:44 | EKG ---
Date Performed: 05/17/2017 Time Performed: 11:59:28 PTAGE: 67 years EKG: SINUS TACHYCARDIA SEPTAL MYOCARDIAL INFARCTION ABNORMAL ECG PREVIOUS TRACING : 05/10/2017 05.49 Compared to previous tracing, sinus rate has increased. DOCTOR: Craig Kelley Interpretating Date/Time 05/18/2017 15:44:13
[2017-05-18] MEDS ORDERED: AZITHROMYCIN 250 MG TAB PO SCH (16:00)
== END 2017-05-18 13:08 | disposition home or self-care (01) ==
LOC: NEPE 10:23 → NEDA 15:39 → NEPFCDU 17:43
PROVIDERS: ADMIT Hospitalist; ATTEND Hospitalist
DX: J18.1 Lobar pneumonia, unspecified organism (principal); J44.0 Chronic obstructive pulmonary disease with (acute) lower respiratory infection; M79.604 Pain in right leg; M25.551 Pain in right hip; R94.31 Abnormal electrocardiogram [ECG] [EKG]; R00.0 Tachycardia, unspecified; E87.6 Hypokalemia; N17.9 Acute kidney failure, unspecified; R16.1 Splenomegaly, not elsewhere classified; I25.10 Atherosclerotic heart disease of native coronary artery without angina pectoris; I11.0 Hypertensive heart disease with heart failure; I50.9 Heart failure, unspecified; E78.00 Pure hypercholesterolemia, unspecified; K21.9 Gastro-esophageal reflux disease without esophagitis; M06.9 Rheumatoid arthritis, unspecified; G30.9 Alzheimer's disease, unspecified; M25.559 Pain in unspecified hip; G89.29 Other chronic pain; B19.20 Unspecified viral hepatitis C without hepatic coma; F17.200 Nicotine dependence, unspecified, uncomplicated; Z79.899 Other long term (current) drug therapy; Z23 Encounter for immunization
CPT/HCPCS: 71010; 71275; 76937; 80048; 83605; 83735; 83880; 85025; 87040; 87205; 87804; 90732; 93005; 94640; 94664; 96374; 99285; G0378; J0456; J0692; J0696; J2930; J7030; J7040; J7050; J7512; Q9967

== ENCOUNTER 2017-08-14 19:26 | Emergency (ER) | payer MEDICARE, MEDICAID ==
[~2017-08-14] VITALS: Ht 162.6 cm; Wt 82.0 kg
[~2017-08-14 19:26] MED LIST changes: +AZIT250T3 PO; +CEFU1TAB20 PO; -HYDR25TA5 PO; +IPRASOL INH; -LEVA750T9 PO; -LISI-515 PO; -MORP1TAB26 PO; +NEBULIZER1 MI1; +PRED20 PO; +XANA1TAB2 PO; +guaiFENesin ER PO
[2017-08-14 19:34] VITALS: BP 86/59; PULSE 108; RESP 16; O2SAT 92
[2017-08-14] MEDS ORDERED: SODIUM CHLOR 0.9% 1000 ML INJ 1,000 ML IV ONE (19:45)
[2017-08-14 20:27] LABS: AUTOMATED NEUTROPHIL # 1.9 TH/MM3 (1.8-7.7); BASOPHIL % 0.6 % (0.0-2.0); EOSINOPHIL # 0.1 TH/MM3 (0-0.4); EOSINOPHIL % 2.6 % (0.0-4.0); HEMATOCRIT 42.6 % (35.0-46.0); HEMOGLOBIN 14.2 GM/DL (11.6-15.3); LYMPH % 48.7 % (9.0-44.0); LYMPHOCYTE # 2.3 TH/MM3 (1.0-4.8); MEAN CELL VOLUME 88.4 FL (80.0-100.0); MEAN CORPUSCULAR HEMOGLOBIN 29.4 PG (27.0-34.0); MEAN CORPUSCULAR HGB CONC 33.3 % (32.0-36.0); MEAN PLATELET VOLUME 9.8 FL (7.0-11.0); MONO % 8.3 % (0.0-8.0); MONOCYTE # 0.4 TH/MM3 (0-0.9); NEUT % 39.8 % (16.0-70.0); PLATELET COUNT 135 TH/MM3 (150-450); RED BLOOD COUNT 4.83 MIL/MM3 (4.00-5.30); RED CELL DISTRIBUTION WIDTH 14.9 % (11.6-17.2); WHITE BLOOD COUNT 4.7 TH/MM3 (4.0-11.0)
[2017-08-14 20:43] LABS: BACTERIA, URINE MANY /hpf; BILIRUBIN, URINE NEG (NEG); BLOOD, URINE NEG (NEG); GLUCOSE,URINE NEG (NEG); KETONE, URINE NEG (NEG); MUCUS URINE FEW /lpf (OCC); NITRITE,URINE NEG (NEG); SQUAMOUS EPITHELIAL CELL URINE 19 /hpf (0-5); TRANSITIONAL EPI CELLS, URINE 1 /hpf; URINE COLOR YELLOW (YELLW/STRAW); URINE LEUKOCYTE ESTERASE LARGE (NEG); WHITE BLOOD CELL CLUMPS FEW
--- NOTE | 2017-08-14 20:56 | RADRPT ---
EXAM DATE/TIME: 08/14/2017 20:21 [facility] COMPARISON: CT ABDOMEN & PELVIS W CONTRAST, January 17, 2017, 2:06. INDICATIONS : Right hip pain for 6 months MEDICAL HISTORY : Rheumatoid arthritis. SURGICAL HISTORY : None. ENCOUNTER: Initial ACUITY: 4 - 6 months PAIN SCORE: 7/10 LOCATION: Right hip joint FINDINGS: There is complete lytic destruction of the right femoral head which is similar to a recent exam. Ther e is advanced arthropathy of the left femoral head with marked bony deformity and sclerosis of the ac etabulum bilaterally, left greater than right. There is some mild protrusio acetabuli. CONCLUSION: 1. 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 Findings similar to CT exam from January 17. 2. Advanced arthropathy of the left hip, probably chronic rheumatoid arthropathy. Anibal Henley MD on August 14, 2017 at 20:48 Board Certified Radiologist. This report was verified electronically.
--- NOTE | 2017-08-14 20:57 | PD ---
HPI Chief Complaint: Medical Clearance Time Seen by Provider: 19:38 Travel History International Travel<30 days: No Contact w/Intl Traveler<30days: No Traveled to known affect area: No History of Present Illness HPI To 67-year-old woman who presents to her emergency department from home. Reportedly family and the physical therapist called because she was weak and lethargic. EMS reports that she had pinpoint pupils. She had needles and syringes in her ashtray and endorses crushing up her home pain medications and injecting them. States she last injected yesterday. She denies any complaints at this time. She states she lives with her son and his girlfriend and their kid. He takes a chronic pain medicines for gout and rheumatoid arthritis. No other recent illness or injury. No other complaints. History Past Medical History Narrative Medical Gout Hypertension Rheumatoid arthritis Memory problems Menopausal: Yes : 5 Para: 3 Social History Alcohol Use: Yes (OCC) Tobacco Use: Yes (1 PPD EVERY FEW DAYS) Allergies-Medications (Allergen,Severity, Reaction): Coded Allergies: No Known Allergies (Verified , 08/14/17) Reported Meds & Prescriptions Reported Meds & Active Scripts Active Cefuroxime (Cefuroxime Axetil) 500 Mg Tab 500 Mg PO BID [guaiFENesin ER] 600 MG Tabcr 600 Mg PO BID Prednisone 20 Mg Tab 20 Mg PO DAILY Duoneb (Ipratropium-Albuterol Neb) 0.5-2.5 Mg/3 Ml Neb 1 Ampule INH Q6HR NEB Azithromycin 250 Mg Tab 500 Mg PO Q24H Pantoprazole (Pantoprazole Sodium) 40 Mg Tab 40 Mg PO Q12HR Reported Flexeril (Cyclobenzaprine HCl) 10 Mg Tab 10 Mg PO BID Donepezil 10 Mg Tab 10 Mg PO HS Gabapentin 300 Mg Cap 300 Mg PO TID Xanax (Alprazolam) 1 Mg Tab 1 Mg PO Q6H PRN Morphine ER (Morphine Sulfate) 30 Mg Tab 30 Mg PO DAILY IN THE AM Donepezil 10 Mg Tab 10 Mg PO HS Allopurinol 100 Mg Tab 100 Mg PO DAILY Review of Systems Except as stated in HPI: all other systems reviewed are Neg Physical Exam Narrative GENERAL: Well-appearing 67-year-old woman, no acute distress. SKIN: Focused skin assessment warm/dry. HEAD: Atraumatic. Normocephalic. EYES: Pupils equal and round. No scleral icterus. No injection or drainage. ENT: No nasal bleeding or discharge. Mucous membranes pink and moist. NECK: Trachea midline. No JVD. CARDIOVASCULAR: Regular rate and rhythm. No murmur appreciated. RESPIRATORY: No accessory muscle use. Clear to auscultation. Breath sounds equal bilaterally. GASTROINTESTINAL: Abdomen soft, non-tender, nondistended. Hepatic and splenic margins not palpable. MUSCULOSKELETAL: No obvious deformities. No clubbing. No cyanosis. No edema. NEUROLOGICAL: Awake, little bit sluggish, no focal deficits. Strength full and equal. Data Data Last Documented VS Vital Signs Date Time Temp Pulse Resp B/P (MAP) Pulse Ox O2 Delivery O2 Flow Rate FiO2 08/14/17 21:30 88 16 86/63 (71) 94 Nasal Cannula 2.00 Orders Orders Complete Blood Count With Diff (08/14/17 19:39) Comprehensive Metabolic Panel (08/14/17 19:39) Cath For Specimen (08/14/17 19:39) Urinalysis - C+S If Indicated (08/14/17 19:39) Sodium Chlor 0.9% 1000 Ml Inj (Ns 1000 M (08/14/17 19:45) Hip, Uni(Ap&Lat) W Ap Pelvis (08/14/17 ) Urine Culture (08/14/17 19:50) Comprehensive Metabolic Panel (08/14/17 22:49) Labs Laboratory Tests Test 08/14/17 19:50 08/14/17 19:52 08/14/17 21:30 08/14/17 22:50 Urine Color YELLOW Urine Turbidity HAZY Urine pH 6.0 Urine Specific [place] 1.010 Urine Protein NEG mg/dL Urine Glucose (UA) NEG mg/dL Urine Ketones NEG mg/dL Urine Occult Blood NEG Urine Nitrite NEG Urine Bilirubin NEG Urine Urobilinogen LESS THAN 2.0 MG/DL Urine Leukocyte Esterase LARGE Urine RBC 4 /hpf Urine WBC 84 /hpf Urine WBC Clumps FEW Urine Squamous Epithelial Cells 19 /hpf Urine Transitional Epithelial Cells 1 /hpf Urine Bacteria MANY /hpf Urine Mucus FEW /lpf Microscopic Urinalysis Comment CATH-CULTURE IND White Blood Count 4.7 TH/MM3 Red Blood Count 4.83 MIL/MM3 Hemoglobin 14.2 GM/DL Hematocrit 42.6 % Mean Corpuscular Volume 88.4 FL Mean Corpuscular Hemoglobin 29.4 PG Mean Corpuscular Hemoglobin Concent 33.3 % Red Cell Distribution Width 14.9 % Platelet Count 135 TH/MM3 Mean Platelet Volume 9.8 FL Neutrophils (%) (Auto) 39.8 % Lymphocytes (%) (Auto) 48.7 % Monocytes (%) (Auto) 8.3 % Eosinophils (%) (Auto) 2.6 % Basophils (%) (Auto) 0.6 % Neutrophils # (Auto) 1.9 TH/MM3 Lymphocytes # (Auto) 2.3 TH/MM3 Monocytes # (Auto) 0.4 TH/MM3 Eosinophils # (Auto) 0.1 TH/MM3 Basophils # (Auto) 0.0 TH/MM3 CBC Comment DIFF FINAL Differential Comment Blood Urea Nitrogen 32 MG/DL 41 MG/DL Creatinine 1.32 MG/DL 1.86 MG/DL Random Glucose 82 MG/DL 106 MG/DL Total Protein 6.0 GM/DL 8.0 GM/DL Albumin 1.8 GM/DL 2.7 GM/DL Calcium Level 6.1 MG/DL 8.4 MG/DL Alkaline Phosphatase 67 U/L 92 U/L Aspartate Amino Transf (AST/SGOT) 49 U/L 55 U/L Alanine Aminotransferase (ALT/SGPT) 21 U/L 33 U/L Total Bilirubin 0.5 MG/DL 0.5 MG/DL Sodium Level 147 MEQ/L 141 MEQ/L Potassium Level 3.1 MEQ/L 3.8 MEQ/L Chloride Level 122 MEQ/L 112 MEQ/L Carbon Dioxide Level 14.3 MEQ/L 19.9 MEQ/L Anion Gap 11 MEQ/L 9 MEQ/L Estimat Glomerular Filtration Rate 49 ML/MIN 33 ML/MIN Protein Corrected Calcium 6.6 MG/DL [facility] Medical Decision Making Medical Screen Exam Complete: Yes Emergency Medical Condition: Yes Interpretation(s) LABS: CBC is unremarkable. CMP is remarkable initially for low calcium, elevated sodium and chloride, low potassium, low bicarbonate, low protein, suggestive of saline contamination. Repeat shows elevated BUN/creatinine, bicarbonates improved. Calcium values initially were spurious. Pyuria. Differential Diagnosis Adverse effect of opioids, infection, anemia, weakness, other Narrative Course Medical decision-making 67-year-old woman abusing her opiates, presents with confusion and weakness. Looks well. She has no complaints. We'll check screening labs. Counseled to avoid opiates. Diagnosis Primary Impression: Opioid abuse Additional Impression: UTI (urinary tract infection) Additional Instructions: Take her opiates only as prescribed. Do not inject them. Take antibiotics as prescribed. Return to the emergency department for any new or worsening symptoms. Med/Other Pt SpecificInfo: Prescription(s) given Scripts Cephalexin (Keflex) 500 Mg Capsule 500 MG PO Q8H for Infection, #21 CAP 0 Refills Prov: Krish Noyola MD 08/15/17 Disposition: 01 DISCHARGE HOME Condition: Stable Krish Noyola MD Aug 14, 2017 20:57
[2017-08-14] MEDS ORDERED: CYCL10TA PO (21:05)
[2017-08-14] MEDS ORDERED: DONE10TA7 PO (21:05)
[2017-08-14] MEDS ORDERED: GABA300C5 PO (21:05)
[2017-08-14 21:30] VITALS: BP 86/63; PULSE 88; RESP 16; O2SAT 94
[2017-08-14 22:28] LABS: ALBUMIN 1.8 GM/DL (3.4-5.0); BICARBONATE 14.3 MEQ/L (21.0-32.0); CALCIUM 6.1 MG/DL (8.5-10.1); CREATININE 1.32 MG/DL (0.50-1.00)
[2017-08-14 22:38] LABS: TOTAL BILIRUBIN ADULT 0.5 MG/DL (0.2-1.0)
[2017-08-14 22:40] LABS: CALCIUM-PROTEIN CORRECTED 6.6 MG/DL (8.5-10.1)
[2017-08-14 23:33] LABS: ALBUMIN 2.7 GM/DL (3.4-5.0); ALKALINE PHOSPHATASE 92 U/L (45-117); ALT (GPT) 33 U/L (10-53); AST (GOT) 55 U/L (15-37); BICARBONATE 19.9 MEQ/L (21.0-32.0); BLOOD UREA NITROGEN 41 MG/DL (7-18); CALCIUM 8.4 MG/DL (8.5-10.1); CHLORIDE 112 MEQ/L (98-107); CREATININE 1.86 MG/DL (0.50-1.00); GLOMERULAR FILTRATION RATE 33 ML/MIN (>89); GLUCOSE,RANDOM 106 MG/DL (74-106); SODIUM (NA) 141 MEQ/L (136-145); TOTAL BILIRUBIN ADULT 0.5 MG/DL (0.2-1.0)
[2017-08-15] MEDS ORDERED: CEPH-460 PO (00:22)
[2017-08-15 01:00] VITALS: BP 102/69; PULSE 86; RESP 16; O2SAT 96
== END 2017-08-15 06:22 | disposition home or self-care (01) ==
LOC: NEPE 19:26 → NEPD 08-15 06:22
DX: F11.10 Opioid abuse, uncomplicated (principal); N39.0 Urinary tract infection, site not specified; I10 Essential (primary) hypertension; M06.9 Rheumatoid arthritis, unspecified; M10.9 Gout, unspecified; Z72.0 Tobacco use
CPT/HCPCS: 73502; 80053; 81001; 85025; 87086; 96360; 96361; 99284; J7030; P9612

== ENCOUNTER 2017-12-01 16:27 | Inpatient (IN) | payer MEDICARE, MEDICAID ==
[~2017-12-01] VITALS: Ht 165.1 cm; Wt 68.0 kg
[~2017-12-01 16:27] MED LIST changes: -AZIT250T3 PO; -CEFU1TAB20 PO; +CYCL10TA PO; +CYPR4TAB PO; -DONE10TA7 PO; +GABA300C5 PO; +HYDR25TA5 PO; +HYDR8TAB PO; +LISI10TA3 PO; -MORP1TAB25 PO; -NEBULIZER1 MI1; -PRED20 PO; -guaiFENesin ER PO
[2017-12-01 16:39] VITALS: BP 115/66; PULSE 110; RESP 8; TEMP 97.9; O2SAT 96
[2017-12-01] MEDS ORDERED: SODIUM CHLOR 0.9% 1000 ML INJ 1,000 ML IV SCH (17:05)
[2017-12-01] MEDS ORDERED: SODIUM CHLORIDE 0.9% FLUSH 10 ML FLUSH IV FLUSH PRN ×2 (17:15→19:15)
--- NOTE | 2017-12-01 17:15 | PD ---
HPI Chief Complaint: Altered Mental Status Time Seen by Provider: 16:53 Travel History International Travel<30 days: No Contact w/Intl Traveler<30days: No Traveled to known affect area: No History of Present Illness HPI The patient was seen and examined in the presence of the nurse. This patient is brought in by paramedics with altered mental status. She is quite obtunded and can't provide any useful history or review of systems. She does have chronic pain and takes morphine and Dilaudid as prescribed medications. She injects Dilaudid. She apparently did that today and became quite altered. She is drooling on herself in the bed. She will mumble and has a gag reflex. 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, B (questionable)) Hiatal Hernia: Yes (REPAIR) Hypertension: Yes Immune Disorder: No Implanted Vascular Access Dvce: No Musculoskeletal: Yes (RA, Gout) Neurologic: Yes (Dementia) Psychiatric: No Reproductive: No Respiratory: Yes Immunizations Current: Yes Sleep Apnea: No Thyroid Disease: No Ulcer: Yes Tetanus Vaccination: > 5 Years Influenza Vaccination: Yes Menopausal: Yes : 5 Para: 3 : 2 Past Surgical History Abdominal Surgery: Yes (INGUINAL HERNIA REPAIR) Section: Yes (X1) Gynecologic Surgery: Yes Pacemaker: No Other Surgery: Yes (fx nose, fx ankle) Social History Alcohol Use: Yes (OCC) Tobacco Use: Yes (1 PPD EVERY FEW DAYS) Substance Use: Yes (IV DRUG USE) Allergies-Medications (Allergen,Severity, Reaction): Coded Allergies: No Known Allergies (Verified Allergy, Unknown, 10/05/17) Reported Meds & Prescriptions Reported Meds & Active Scripts Active Duoneb (Ipratropium-Albuterol Neb) 0.5-2.5 Mg/3 Ml Neb 1 Ampule INH Q6HR NEB Pantoprazole (Pantoprazole Sodium) 40 Mg Tab 40 Mg PO Q12HR Reported Cyproheptadine (Cyproheptadine HCl) 4 Mg Tab 4 Mg PO TID Hydrochlorothiazide 25 Mg Tab 37.5 Mg PO DAILY Lisinopril 10 Mg Tab 10 Mg PO DAILY Hydromorphone (Hydromorphone HCl) 8 Mg Tab 8 Mg PO Q6H PRN Flexeril (Cyclobenzaprine HCl) 10 Mg Tab 10 Mg PO BID Gabapentin 300 Mg Cap 300 Mg PO TID Xanax (Alprazolam) 1 Mg Tab 1 Mg PO Q6H PRN Allopurinol 100 Mg Tab 100 Mg PO DAILY Review of Systems ROS Limitations: Clinical Condition, Altered Mental Status, Poor Historian Eyes: No: Visual changes Physical Exam Narrative GENERAL: Disheveled lethargic well-developed patient in no apparent distress. SKIN: Focused skin assessment reveals no rash and nodules. Skin is Warm and dry. HEAD: Atraumatic. Normocephalic. EYES: Pupils equal and round. No scleral icterus. No injection or drainage. ENT: No nasal bleeding or discharge. Mucous membranes pink and moist. NECK: Trachea midline. No JVD. CARDIOVASCULAR: Regular rate and rhythm. No murmur appreciated. RESPIRATORY: No accessory muscle use. Expiratory wheezing. Breath sounds equal bilaterally. GASTROINTESTINAL: Abdomen soft, non-tender, nondistended. Hepatic and splenic margins not palpable. MUSCULOSKELETAL: No obvious deformities. No clubbing. No cyanosis. No edema. NEUROLOGICAL: Drowsy, yells to pain stimuli. No obvious cranial nerve deficits. Motor and sensory exams impossible to evaluate. Mumbling nonsensical speech. Positive gag reflex PSYCHIATRIC: Very lethargic and obtunded mood and affect; insight and judgment poor. Data Data Last Documented VS Vital Signs Date Time Temp Pulse Resp B/P (MAP) Pulse Ox O2 Delivery O2 Flow Rate FiO2 12/01/17 18:12 98 10 130/85 (100) 96 Aerosol Mask 10.00 12/01/17 16:39 97.9 Orders Orders Electrocardiogram (12/01/17 17:05) Complete Blood Count With Diff (12/01/17 17:05) Comprehensive Metabolic Panel (12/01/17 17:05) Thyroid Stimulating Hormone (12/01/17 17:05) Urinalysis - C+S If Indicated (12/01/17 17:05) Arterial Blood Gas (Abg) (12/01/17 17:05) Ct Brain W/O Iv Contrast(Rout) (12/01/17 17:05) Blood Glucose (12/01/17 17:05) Ecg Monitoring (12/01/17 17:05) Iv Access Insert/Monitor (12/01/17 17:05) Cath For Specimen (12/01/17 17:05) Oximetry (12/01/17 17:05) Urinary Catheter Insert/Apply (12/01/17 17:05) Sodium Chloride 0.9% Flush (Ns Flush) (12/01/17 17:15) Sodium Chlor 0.9% 1000 Ml Inj (Ns 1000 M (12/01/17 17:05) Drug Screen, Random Urine (12/01/17 17:05) Alcohol (Ethanol) (12/01/17 17:05) Tylenol (Acetaminophen) (12/01/17 17:05) Salicylates (Aspirin) (12/01/17 17:05) Albuterol-Ipratropium Neb (Duoneb Neb) (12/01/17 17:45) Chest, Single Ap (12/01/17 ) Admit Order (Ed Use Only) (12/01/17 18:44) Labs Laboratory Tests Test 12/01/17 16:50 12/01/17 17:18 12/01/17 17:50 White Blood Count 6.4 TH/MM3 Red Blood Count 4.47 MIL/MM3 Hemoglobin 13.9 GM/DL Hematocrit 41.0 % Mean Corpuscular Volume 91.8 FL Mean Corpuscular Hemoglobin 31.2 PG Mean Corpuscular Hemoglobin Concent 34.0 % Red Cell Distribution Width 15.3 % Platelet Count 134 TH/MM3 Mean Platelet Volume 9.3 FL Neutrophils (%) (Auto) 32.6 % Lymphocytes (%) (Auto) 55.2 % Monocytes (%) (Auto) 10.8 % Eosinophils (%) (Auto) 0.8 % Basophils (%) (Auto) 0.6 % Neutrophils # (Auto) 2.1 TH/MM3 Lymphocytes # (Auto) 3.5 TH/MM3 Monocytes # (Auto) 0.7 TH/MM3 Eosinophils # (Auto) 0.1 TH/MM3 Basophils # (Auto) 0.0 TH/MM3 CBC Comment DIFF FINAL Differential Comment Blood Urea Nitrogen 30 MG/DL Creatinine 1.21 MG/DL Random Glucose 92 MG/DL Total Protein 9.0 GM/DL Albumin 3.2 GM/DL Calcium Level 8.9 MG/DL Alkaline Phosphatase 100 U/L Aspartate Amino Transf (AST/SGOT) 60 U/L Alanine Aminotransferase (ALT/SGPT) 30 U/L Total Bilirubin 0.4 MG/DL Sodium Level 139 MEQ/L Potassium Level 3.9 MEQ/L Chloride Level 110 MEQ/L Carbon Dioxide Level 18.1 MEQ/L Anion Gap 11 MEQ/L Estimat Glomerular Filtration Rate 54 ML/MIN Thyroid Stimulating Hormone 3rd Gen 2.900 uIU/ML Acetaminophen Level LESS THAN 2.0 MCG/ML Ethyl Alcohol Level 385 MG/DL Blood Gas Puncture Site LT BRACHIAL Blood Gas Patient Temperature 98.6 Blood Gas HCO3 16 mmol/L Blood Gas Base Excess -6.8 mmol/L Blood Gas Oxygen Saturation 96 % Arterial Blood pH 7.50 Arterial Blood Partial Pressure CO2 21 mmHg Arterial Blood Partial Pressure O2 113 mmHG Arterial Blood Oxygen Content 19.0 Vol % Arterial Blood Carboxyhemoglobin 2.5 % Arterial Blood Methemoglobin 0.4 % Blood Gas Hemoglobin 14.0 G/DL Oxygen Delivery Device NASAL CANNULA Blood Gas Liter Flow 4 L/M Urine Color YELLOW Urine Turbidity CLEAR Urine pH 6.5 Urine Specific [place] 1.009 Urine Protein NEG mg/dL Urine Glucose (UA) NEG mg/dL Urine Ketones NEG mg/dL Urine Occult Blood NEG Urine Nitrite NEG Urine Bilirubin NEG Urine Urobilinogen LESS THAN 2.0 MG/DL Urine Leukocyte Esterase NEG Urine RBC 1 /hpf Urine WBC 1 /hpf Urine Squamous Epithelial Cells 1 /hpf Urine Hyaline Casts 4 /lpf Microscopic Urinalysis Comment CATH-CULT NOT IND MDM Medical Decision Making Medical Screen Exam Complete: Yes Emergency Medical Condition: Yes Medical Record Reviewed: Yes Differential Diagnosis Drug overdose, drug intoxication, cranial hemorrhage Narrative Course I have reviewed the patient's electronic medical record. She is a frequent visitor, substance abuse issues and chronic pain issues Patient arrives critically ill. She did receive Narcan in route 2 mg At this point she is controlling her airway but will need to be watched closely Multiple frequent rechecks done 2 IVs placed I gave her IV normal saline 1 L Labs sent On reassessment she is quite obtunded but arousable and I think she would do okay in intensive care with monitoring closely but I don't think she needs acutely intubated General labs are reviewed She is quite intoxicated at 385 Chest x-ray is negative and brain CT negative Case reviewed with [facility] division chief Dr. Wilhelm He agrees to hold off on any further Narcan Is a chronic user and could possibly seize Critical Care Narrative Aggregate critical care time was 35 minutes. Time to perform other separately billable procedures was not included in the critical care time. My time did not include minutes spent treating any other patients simultaneously or on activities that did not directly contribute to the patient's treatment. The services I provided to this patient were to treat and/or prevent clinically significant deterioration that could result in: Loss of airway, hypoxemic brain injury, cardiopulmonary arrest I provided critical care services requiring my management, as noted below: Chart data review, documentation time, medication orders and management, vital sign assessments/reviewing monitor data, ordering and reviewing lab tests, ordering and interpreting/reviewing x-rays and diagnostic studies, care of the patient and discussion of the patient with the admitting physicians. Diagnosis Primary Impression: Obtunded Additional Impressions: Alcoholic intoxication with complication Narcotic overdose Qualified Codes: T40.601A - Poisoning by unspecified narcotics, accidental ( unintentional), initial encounter Admitting Information Admitting Physician Requests: Admit Ángel Patel MD Dec 01, 2017 17:15
[2017-12-01 17:40] LABS: AUTOMATED NEUTROPHIL # 2.1 TH/MM3 (1.8-7.7); BASOPHIL % 0.6 % (0.0-2.0); EOSINOPHIL # 0.1 TH/MM3 (0-0.4); EOSINOPHIL % 0.8 % (0.0-4.0); HEMOGLOBIN 13.9 GM/DL (11.6-15.3); LYMPH % 55.2 % (9.0-44.0); LYMPHOCYTE # 3.5 TH/MM3 (1.0-4.8); MEAN CELL VOLUME 91.8 FL (80.0-100.0); MEAN CORPUSCULAR HEMOGLOBIN 31.2 PG (27.0-34.0); MEAN PLATELET VOLUME 9.3 FL (7.0-11.0); MONO % 10.8 % (0.0-8.0); MONOCYTE # 0.7 TH/MM3 (0-0.9); NEUT % 32.6 % (16.0-70.0); PLATELET COUNT 134 TH/MM3 (150-450); RED BLOOD COUNT 4.47 MIL/MM3 (4.00-5.30); RED CELL DISTRIBUTION WIDTH 15.3 % (11.6-17.2); WHITE BLOOD COUNT 6.4 TH/MM3 (4.0-11.0)
[2017-12-01] MEDS: RESP: ALBUTEROL 2.5 MG/IPRATROPIUM 0.5 MG NEB (SCH) NEB ONE ×2 (17:45→20:22)
[2017-12-01 18:00] LABS: ALBUMIN 3.2 GM/DL (3.4-5.0); AST (GOT) 60 U/L (15-37); BICARBONATE 18.1 MEQ/L (21.0-32.0); BLOOD UREA NITROGEN 30 MG/DL (7-18); CALCIUM 8.9 MG/DL (8.5-10.1); CHLORIDE 110 MEQ/L (98-107); CREATININE 1.21 MG/DL (0.50-1.00); GLOMERULAR FILTRATION RATE 54 ML/MIN (>89); GLUCOSE,RANDOM 92 MG/DL (74-106); SODIUM (NA) 139 MEQ/L (136-145)
[2017-12-01 18:01] LABS: ALT (GPT) 30 U/L (10-53)
--- NOTE | 2017-12-01 18:08 | RADRPT ---
EXAM DATE/TIME: 12/01/2017 17:53 [facility] COMPARISON: No previous studies available for comparison. INDICATIONS : Altered mental status. RADIATION DOSE: CTDIvol (mGy) MEDICAL HISTORY : Cardiovascular disease. Hypertension. Chronic obstructive pulmonary disease.Hep C SURGICAL HISTORY : None. ENCOUNTER: Initial ACUITY: 1 day PAIN SCALE: 0/10 LOCATION: cranial TECHNIQUE: Multiple contiguous axial images were obtained of the head. Using automated exposure control and adj ustment of the mA and/or kV according to patient size, radiation dose was kept as low as reasonably a chievable to obtain optimal diagnostic quality images. DICOM format image data is available electro nically for review and comparison. FINDINGS: CEREBRUM: The ventricles are normal for age. No evidence of midline shift, mass lesion, hemorrhage or acute in farction. No extra-axial fluid collections are seen. POSTERIOR FOSSA: The cerebellum and brainstem are intact. The 4th ventricle is midline. The cerebellopontine angle i s unremarkable. EXTRACRANIAL: The visualized portion of the orbits is intact. SKULL: The calvaria is intact. No evidence of skull fracture. CONCLUSION: Normal examination for a patient of this age. Anibal Henley MD on December 01, 2017 at 18:04 Board Certified Radiologist. This report was verified electronically.
[2017-12-01 18:09] LABS: BILIRUBIN, URINE NEG (NEG); BLOOD, URINE NEG (NEG); GLUCOSE,URINE NEG (NEG); HYALINE CAST, URINE 4 /lpf (RARE); KETONE, URINE NEG (NEG); NITRITE,URINE NEG (NEG); PH, URINE 6.5 (5.0-8.5); SQUAMOUS EPITHELIAL CELL URINE 1 /hpf (0-5); URINE COLOR YELLOW (YELLW/STRAW); URINE LEUKOCYTE ESTERASE NEG (NEG)
[2017-12-01 18:11] LABS: ALKALINE PHOSPHATASE 100 U/L (45-117); TOTAL BILIRUBIN ADULT 0.4 MG/DL (0.2-1.0)
[2017-12-01 18:12] VITALS: BP 130/85; PULSE 98; RESP 10; O2SAT 96
[2017-12-01 18:19] LABS: ACETAMINOPHEN LESS THAN 2.0 MCG/ML (10.0-30.0)
--- NOTE | 2017-12-01 18:32 | RADRPT ---
EXAM DATE/TIME: 12/01/2017 18:12 [facility] COMPARISON: CHEST SINGLE AP, May 17, 2017, 10:43. INDICATIONS : Shortness of breath. MEDICAL HISTORY : Hepatitis C. Chronic obstructive pulmonary disease. Cardiovascular disease. Hypertension. SURGICAL HISTORY : None. ENCOUNTER: Initial ACUITY: 1 day PAIN SCORE: 0/10 LOCATION: Bilateral chest FINDINGS: A single view of the chest demonstrates subsegmental basilar airspace disease. No effusion. No pneumo thorax. Cardiomegaly. CONCLUSION: 1. Subsegmental basilar airspace disease. No significant effusion. No pneumothorax. Anibal Henley MD on December 01, 2017 at 18:29 Board Certified Radiologist. This report was verified electronically.
[2017-12-01] MEDS ORDERED: ALPRAZolam 1 MG TAB PO PRN (19:00)
[2017-12-01] MEDS: SODIUM CHLOR 0.9% 1000 ML INJ 1,000 ML IV SCH ×2 (19:04→22:04)
--- NOTE | 2017-12-01 19:09 | HHI.HP ---
HPI Service Critical Care Medicine Primary Care Physician Mainor Bills MD Admission Diagnosis obtunded, alcohol intox, narcotic OD Diagnosis: Travel History International Travel<30 Days: No Contact w/Intl Traveler <30 Da: No Traveled to Known Affected Are: No History of Present Illness 67-year-old female with past medical history significant of opiate dependency is brought in by paramedics with altered mental status. In the emergency department she was quite obtunded and unable to provide any meaningful history. She does have chronic pain and takes morphine and Dilaudid as prescribed medications. Today she is quite intoxicated with alcohol level 385. Review of Systems ROS Unobtainable patient's heavily intoxicated Past Family Social History Allergies: Coded Allergies: No Known Allergies (Verified Allergy, Unknown, 10/05/17) Past Medical History GERD Dementia Hypertension Gout Rheumatoid arthritis with chronic hip pain Past Surgical History Hernia repair Reported Medications Reported Meds & Active Scripts Active Duoneb (Ipratropium-Albuterol Neb) 0.5-2.5 Mg/3 Ml Neb 1 Ampule INH Q6HR NEB Pantoprazole (Pantoprazole Sodium) 40 Mg Tab 40 Mg PO Q12HR Reported Cyproheptadine (Cyproheptadine HCl) 4 Mg Tab 4 Mg PO TID Hydrochlorothiazide 25 Mg Tab 37.5 Mg PO DAILY Lisinopril 10 Mg Tab 10 Mg PO DAILY Hydromorphone (Hydromorphone HCl) 8 Mg Tab 8 Mg PO Q6H PRN Flexeril (Cyclobenzaprine HCl) 10 Mg Tab 10 Mg PO BID Gabapentin 300 Mg Cap 300 Mg PO TID Xanax (Alprazolam) 1 Mg Tab 1 Mg PO Q6H PRN Allopurinol 100 Mg Tab 100 Mg PO DAILY Active Ordered Medications Current Medications Medications (Trade) Dose Ordered Sig/Rock Route PRN Reason Start Time Stop Time Status Last Admin Dose Admin Sodium Chloride (NS Flush) 2 ml UNSCH PRN IV FLUSH FLUSH AFTER USING IV ACCESS 12/01/17 17:15 12/01/17 20:01 Allopurinol (Zyloprim) 100 mg DAILY PO 12/02/17 09:00 UNV Alprazolam (Xanax) 1 mg Q6H PRN PO ANXIETY 12/01/17 19:00 UNV Cyclobenzaprine HCl (Flexeril) 10 mg BID PO 12/01/17 21:00 UNV Cyproheptadine HCl (Periactin) 4 mg TID PO 12/02/17 09:00 UNV Gabapentin (Neurontin) 300 mg TID PO 12/02/17 09:00 UNV Sodium Chloride 1,000 ml @ 84 mls/hr [id number] IV 12/01/17 19:04 UNV Sodium Chloride (NS Flush) 2 ml UNSCH PRN IV FLUSH FLUSH AFTER USING IV ACCESS 12/01/17 19:15 UNV Sodium Chloride (NS Flush) 2 ml BID IV FLUSH 12/01/17 21:00 UNV Acetaminophen (Tylenol) 650 mg Q6H PRN PO PAIN 1-10 AND/OR FEVER >101F 12/01/17 19:15 UNV Famotidine (Pepcid Inj) 20 mg Q12HR IV PUSH 12/01/17 21:00 UNV Ondansetron HCl (Zofran Inj) 4 mg Q6H PRN IV PUSH NAUSEA OR VOMITING 12/01/17 19:15 UNV Temazepam (Restoril) 15 mg HS PRN PO INSOMNIA 12/01/17 19:15 UNV Albuterol/ Ipratropium (Duoneb Neb) 1 ampule Q6HR NEB INH 12/01/17 22:00 UNV Albuterol/ Ipratropium (Duoneb Neb) 1 ampule Q2HR NEB PRN INH WHEEZING 12/01/17 19:15 UNV Heparin Sodium (Porcine) (Heparin Inj) 5,000 units Q8H SQ 12/01/17 19:15 UNV Miscellaneous Information 1 [id number] XX 12/01/17 19:15 UNV Chlorhexidine Gluconate (Chlorhexidine 2% Cloth) 3 pack Taper DAILY@04 TOP 12/02/17 04:00 11/28/18 03:59 UNV Chlorhexidine Gluconate (Chlorhexidine 2% Cloth) 3 pack UNSCH PRN TOP HYGIENIC CARE 12/01/17 19:15 UNV Senna/Docusate Sodium (Oralia-Colace) 1 tab BID PO 12/01/17 21:00 UNV Magnesium Hydroxide (Milk Of Magnesia Liq) 30 ml Q12H PRN PO Mild constipation 12/01/17 19:15 UNV Sennosides (Senokot) 17.2 mg Q12H PRN PO Moderate constipation 12/01/17 19:15 UNV Bisacodyl (Dulcolax Supp) 10 mg DAILY PRN RECTAL SEVERE CONSITIPATION 12/01/17 19:15 UNV Lactulose (Lactulose Liq) 30 ml DAILY PRN PO SEVERE CONSITIPATION 12/01/17 19:15 UNV Multivitamins 10 ml/Thiamine HCl 100 mg/Folic Acid 1 mg/Sodium Chloride 511.2 ml @ 125 mls/hr ONCE ONCE IV 12/01/17 21:15 12/02/17 01:20 UNV Flumazenil (Romazicon Inj) 0.2 mg Q1M PRN IV PUSH SEE LABEL COMMENTS 12/01/17 19:15 UNV Lorazepam (Ativan) 1 mg Q4H PRN PO CIWA 8 - 10 12/01/17 19:15 UNV Lorazepam (Ativan Inj) 1 mg Q4H PRN IV PUSH CIWA 8 - 10 12/01/17 19:15 UNV Lorazepam (Ativan) 2 mg Q2H PRN PO CIWA 11-14 12/01/17 19:15 UNV Lorazepam (Ativan Inj) 2 mg Q2H PRN IV PUSH CIWA 11-14 12/01/17 19:15 UNV Lorazepam (Ativan Inj) 2 mg Q1H PRN IV PUSH CIWA 15-20 12/01/17 19:15 UNV Lorazepam (Ativan Inj) 2 mg Q15M PRN IV PUSH CIWA > 20 12/01/17 19:15 UNV Family History Her mother and father committed suicide at separate times Social History Active smoker Occasional alcohol use, no illicit drug abuse Lives at home with her son and his girlfriend Physical Exam Vital Signs Vital Signs Date Time Temp Pulse Resp B/P (MAP) Pulse Ox O2 Delivery O2 Flow Rate FiO2 12/01/17 18:12 98 10 130/85 (100) 96 Aerosol Mask 10.00 12/01/17 16:45 110 8 97 Nasal Cannula 2.00 12/01/17 16:39 97.9 110 8 115/66 (82) 96 Physical Exam GENERAL: Obtunded female heavily intoxicated SKIN: Warm and dry. HEAD: Normocephalic. EYES: No scleral icterus. No injection or drainage. NECK: Supple, trachea midline. No JVD or lymphadenopathy. CARDIOVASCULAR: Regular rate and rhythm without murmurs, gallops, or rubs. RESPIRATORY: Breath sounds equal bilaterally. No accessory muscle use. GASTROINTESTINAL: Abdomen soft, non-tender, nondistended. MUSCULOSKELETAL: No cyanosis, or edema. BACK: Nontender without obvious deformity. NEURO EXAM: Obtunded female heavily intoxicated, moves all 4 extremities spontaneously. Laboratory Laboratory Tests Test 12/01/17 16:50 12/01/17 17:18 12/01/17 17:50 White Blood Count 6.4 Red Blood Count 4.47 Hemoglobin 13.9 Hematocrit 41.0 Mean Corpuscular Volume 91.8 Mean Corpuscular Hemoglobin 31.2 Mean Corpuscular Hemoglobin Concent 34.0 Red Cell Distribution Width 15.3 Platelet Count 134 Mean Platelet Volume 9.3 Neutrophils (%) (Auto) 32.6 Lymphocytes (%) (Auto) 55.2 Monocytes (%) (Auto) 10.8 Eosinophils (%) (Auto) 0.8 Basophils (%) (Auto) 0.6 Neutrophils # (Auto) 2.1 Lymphocytes # (Auto) 3.5 Monocytes # (Auto) 0.7 Eosinophils # (Auto) 0.1 Basophils # (Auto) 0.0 CBC Comment DIFF FINAL Differential Comment Blood Urea Nitrogen 30 Creatinine 1.21 Random Glucose 92 Total Protein 9.0 Albumin 3.2 Calcium Level 8.9 Alkaline Phosphatase 100 Aspartate Amino Transf (AST/SGOT) 60 Alanine Aminotransferase (ALT/SGPT) 30 Total Bilirubin 0.4 Sodium Level 139 Potassium Level 3.9 Chloride Level 110 Carbon Dioxide Level 18.1 Anion Gap 11 Estimat Glomerular Filtration Rate 54 Thyroid Stimulating Hormone 3rd Gen 2.900 Acetaminophen Level LESS THAN 2.0 Ethyl Alcohol Level 385 Blood Gas Puncture Site LT BRACHIAL Blood Gas Patient Temperature 98.6 Blood Gas HCO3 16 Blood Gas Base Excess -6.8 Blood Gas Oxygen Saturation 96 Arterial Blood pH 7.50 Arterial Blood Partial Pressure CO2 21 Arterial Blood Partial Pressure O2 113 Arterial Blood Oxygen Content 19.0 Arterial Blood Carboxyhemoglobin 2.5 Arterial Blood Methemoglobin 0.4 Blood Gas Hemoglobin 14.0 Oxygen Delivery Device NASAL CANNULA Blood Gas Liter Flow 4 Urine Color YELLOW Urine Turbidity CLEAR Urine pH 6.5 Urine Specific Carlock 1.009 Urine Protein NEG Urine Glucose (UA) NEG Urine Ketones NEG Urine Occult Blood NEG Urine Nitrite NEG Urine Bilirubin NEG Urine Urobilinogen LESS THAN 2.0 Urine Leukocyte Esterase NEG Urine RBC 1 Urine WBC 1 Urine Squamous Epithelial Cells 1 Urine Hyaline Casts 4 Microscopic Urinalysis Comment CATH-CULT NOT IND Result Diagram: 12/01/17 1650 12/01/17 1650 Imaging Last [address] 12/01/17 1705 Signed Impressions: Service Date/Time: Friday, December 01, 2017 17:53 - CONCLUSION: Normal examination for a patient of this age. Anibal Henley MD Chest X-Ray 12/01/17 0000 Signed Impressions: Service Date/Time: Friday, December 01, 2017 18:12 - CONCLUSION: 1. Subsegmental basilar airspace disease. No significant effusion. No pneumothorax. Anibal Henley MD Septic Shock Reassessment Septic shock perfusion: reassessment completed Caprini VTE Risk Assessment Caprini VTE Risk Assessment: Mod/High Risk (score >= 2) Caprini Risk Assessment Model Point Value = 1 Point Value = 2 Point Value = 3 Point Value = 5 Age 41-60 Minor surgery BMI > 25 kg/m2 Swollen legs Varicose veins or History of unexplained or recurrent spontaneous Oral contraceptives or hormone replacement Sepsis (< 1 month) Serious lung disease, including pneumonia (< 1 month) Abnormal pulmonary function Acute myocardial infarction Congestive heart failure (< 1 month) History of inflammatory bowel disease Medical patient at bed rest Age 61-74 Arthroscopic surgery Major open surgery (> 45 min) Laparoscopic surgery (> 45 min) Malignancy Confined to bed (> 72 hours) Immobilizing plaster cast Central venous access Age >= 75 History of VTE Family history of VTE Factor V Leiden Prothrombin [id number] Lupus anticoagulant Anticardiolipin antibodies Elevated serum homocysteine Heparin-induced thrombocytopenia Other congenital or acquired thrombophilia Stroke (< 1 month) Elective arthroplasty Hip, pelvis, or leg fracture Acute spinal cord injury (< 1 month) Prophylaxis Regimen Total Risk Factor Score Risk Level Prophylaxis Regimen 0-1 Low Early ambulation 2 Moderate Order ONE of the following: *Sequential Compression Device (SCD) *Heparin 5000 units SQ BID 3-4 Higher Order ONE of the following medications: *Heparin 5000 units SQ TID *Enoxaparin/Lovenox 40 mg SQ daily (WT < 150 kg, CrCl > 30 mL/min) *Enoxaparin/Lovenox 30 mg SQ daily (WT < 150 kg, CrCl > 10-29 mL/min) *Enoxaparin/Lovenox 30 mg SQ BID (WT < 150 kg, CrCl > 30 mL/min) AND/OR *Sequential Compression Device (SCD) 5 or more Highest Order ONE of the following medications: *Heparin 5000 units SQ TID (Preferred with Epidurals) *Enoxaparin/Lovenox 40 mg SQ daily (WT < 150 kg, CrCl > 30 mL/min) *Enoxaparin/Lovenox 30 mg SQ daily (WT < 150 kg, CrCl > 10-29 mL/min) *Enoxaparin/Lovenox 30 mg SQ BID (WT < 150 kg, CrCl > 30 mL/min) AND *Sequential Compression Device (SCD) Assessment and Plan Assessment and Plan Altered mental status - Alcohol and opiate intoxication - Admit to ICU - Monitor for airway maintenance - Neuro checks per unit protocol - IV fluid hydration - Supportive care Hypertension - Resume lisinopril and hydrochlorothiazide when indicated Chronic pain syndrome - Hold narcotics due to altered mental state - Resume when neurologically improved GERD - Pepcid DVT GI prophylaxis - Teds SCDs - Subcutaneous heparin - Pepcid Critical Care: The total critical care time was 35 minutes. Time to perform other separately billable procedures was not included in the critical care time. Mani Wilhelm MD Dec 01, 2017 7:09 pm
[2017-12-01] MEDS ORDERED: LACTULOSE SYRUP 20 GM/30 ML CUP PO PRN (19:15)
[2017-12-01] MEDS ORDERED: LORazepam 1 MG TAB PO PRN (19:15)
[2017-12-01] MEDS ORDERED: MISCELLANEOUS NURSING INFORMATION XX SCH (19:15)
[2017-12-01] MEDS ORDERED: SENNOSIDES 8.6 MG TAB PO PRN (19:15)
[2017-12-01] MEDS ORDERED: MAGNESIUM HYDROXIDE SUSP 30 ML CUP PO PRN (19:15)
[2017-12-01] MEDS ORDERED: TEMAZEPAM 15 MG CAP PO PRN (19:15)
[2017-12-01] MEDS ORDERED: CHLORHEXIDINE GLUCONATE 2 % 1 PACK (2 CLOTHS) TOP PRN (19:15)
[2017-12-01] MEDS ORDERED: FLUMAZENIL 0.5 MG/5 ML VIAL IV PUSH PRN (19:15)
[2017-12-01] MEDS ORDERED: ONDANSETRON HCL 4 MG/2 ML VIAL IV PUSH PRN (19:15)
[2017-12-01] MEDS ORDERED: LORazepam 2 MG TAB PO PRN (19:15)
[2017-12-01] MEDS ORDERED: LORazepam 2 MG/ML VIAL IV PUSH PRN ×4 (19:15)
[2017-12-01] MEDS ORDERED: BISACODYL 10 MG SUPP RECTAL PRN (19:15)
[2017-12-01] MEDS ORDERED: RESP: ALBUTEROL 2.5 MG/IPRATROPIUM 0.5 MG NEB (PRN) INH (19:15)
[2017-12-01] MEDS ORDERED: ACETAMINOPHEN 325 MG TAB PO PRN (19:15)
[2017-12-01 19:44] VITALS: BP 108/72; PULSE 97; RESP 20; O2SAT 98
[2017-12-01 20:22] VITALS: O2SAT 98
[2017-12-01] MEDS: SODIUM CHLORIDE 0.9% FLUSH 10 ML FLUSH IV FLUSH SCH (20:56)
[2017-12-01 21:00] VITALS: BP 118/77; PULSE 110; RESP 20; O2SAT 98
[2017-12-01] MEDS: FAMOTIDINE 20 MG/2 ML VIAL IV PUSH SCH (21:00)
[2017-12-01] MEDS: DOCUSATE SODIUM 50 MG/SENNA 8.6 MG TAB PO SCH (21:00)
[2017-12-01] MEDS: CYCLOBENZAPRINE HCL 10 MG TAB PO SCH (21:00)
[2017-12-01] MEDS ORDERED: MULTIVITAMIN INJ 10 ML, THIAMINE INJ 100 MG, FOLIC ACID INJ 1 MG in SODIUM CHLOR 0.45% ... IV ONE (22:00)
[2017-12-01] MEDS: HEPARIN SODIUM - SQ 10,000 UNITS/ML VIAL SQ SCH (22:04)
[2017-12-01] MEDS: RESP: ALBUTEROL 2.5 MG/IPRATROPIUM 0.5 MG NEB (SCH) INH (22:23)
[2017-12-02] VITALS (8 sets, daily range): BP systolic 99–136; BP diastolic 67–79; PULSE 83–105; RESP 20–28; TEMP 97.7–98.7; O2SAT 98–100
[2017-12-02] MEDS ORDERED: CHLORHEXIDINE GLUCONATE 2 % 1 PACK (2 CLOTHS) TOP SCH (04:00)
[2017-12-02] MEDS: RESP: ALBUTEROL 2.5 MG/IPRATROPIUM 0.5 MG NEB (SCH) INH ×2 (04:50→10:00)
[2017-12-02] MEDS: HEPARIN SODIUM - SQ 10,000 UNITS/ML VIAL SQ SCH (06:40)
[2017-12-02 06:50] LABS: INTERNATIONAL NORMALIZED RATIO 1.1 RATIO; PROTHROMBIN TIME - PATIENT 11.5 SEC (9.8-11.6)
[2017-12-02 07:08] LABS: ALBUMIN 2.8 GM/DL (3.4-5.0); ALT (GPT) 27 U/L (10-53); AST (GOT) 54 U/L (15-37); BICARBONATE 19.5 MEQ/L (21.0-32.0); BLOOD UREA NITROGEN 23 MG/DL (7-18); CHLORIDE 114 MEQ/L (98-107); CREATININE 0.78 MG/DL (0.50-1.00); GLOMERULAR FILTRATION RATE 89 ML/MIN (>89); GLUCOSE,RANDOM 108 MG/DL (74-106); MAGNESIUM 1.9 MG/DL (1.5-2.5); PHOSPHORUS 2.5 MG/DL (2.5-4.9); SODIUM (NA) 143 MEQ/L (136-145)
[2017-12-02 07:09] LABS: ALKALINE PHOSPHATASE 87 U/L (45-117); AUTOMATED NEUTROPHIL # 1.9 TH/MM3 (1.8-7.7); BASOPHIL % 0.4 % (0.0-2.0); EOSINOPHIL % 0.9 % (0.0-4.0); HEMATOCRIT 37.7 % (35.0-46.0); HEMOGLOBIN 12.4 GM/DL (11.6-15.3); LYMPH % 36.8 % (9.0-44.0); LYMPHOCYTE # 1.3 TH/MM3 (1.0-4.8); MEAN CELL VOLUME 92.7 FL (80.0-100.0); MEAN CORPUSCULAR HEMOGLOBIN 30.5 PG (27.0-34.0); MEAN CORPUSCULAR HGB CONC 32.9 % (32.0-36.0); MEAN PLATELET VOLUME 9.6 FL (7.0-11.0); MONO % 6.5 % (0.0-8.0); MONOCYTE # 0.2 TH/MM3 (0-0.9); NEUT % 55.4 % (16.0-70.0); PLATELET COUNT 99 TH/MM3 (150-450); RED BLOOD COUNT 4.06 MIL/MM3 (4.00-5.30); RED CELL DISTRIBUTION WIDTH 15.7 % (11.6-17.2); TOTAL BILIRUBIN ADULT 0.5 MG/DL (0.2-1.0); TOTAL PROTEIN 7.8 GM/DL (6.4-8.2); WHITE BLOOD COUNT 3.4 TH/MM3 (4.0-11.0)
[2017-12-02] MEDS ORDERED: CYPROHEPTADINE HCL 4 MG TAB PO SCH (09:00)
[2017-12-02] MEDS: CYCLOBENZAPRINE HCL 10 MG TAB PO SCH (09:00)
[2017-12-02] MEDS ORDERED: ALLOPURINOL 100 MG TAB PO SCH (09:00)
[2017-12-02] MEDS: SODIUM CHLORIDE 0.9% FLUSH 10 ML FLUSH IV FLUSH SCH (09:00)
[2017-12-02] MEDS: FAMOTIDINE 20 MG/2 ML VIAL IV PUSH SCH (09:00)
[2017-12-02] MEDS: DOCUSATE SODIUM 50 MG/SENNA 8.6 MG TAB PO SCH (09:00)
[2017-12-02] MEDS ORDERED: GABAPENTIN 300 MG CAP PO SCH (09:00)
--- NOTE | 2017-12-02 14:10 | HHI.PR ---
Subjective Remarks 67F admitted for overdose from combination of alcohol and narcotic pain medications. She was in the ICU overnight for respiratory risk, but is doing well this morning, awake, alert and oriented. She says she is unable to walk and wants to go to a [place] [facility]. Objective Vitals Vital Signs Date Time Temp Pulse Resp B/P (MAP) Pulse Ox O2 Delivery O2 Flow Rate FiO2 12/02/17 09:31 100 Nasal Cannula 2.00 12/02/17 08:00 98.7 105 28 136/68 (90) 98 12/02/17 08:00 89 12/02/17 06:00 105 28 125/77 (93) 98 12/02/17 06:00 89 12/02/17 04:51 98 Nasal Cannula 2.00 12/02/17 04:00 99 12/02/17 04:00 97.9 99 28 116/79 (91) 100 12/02/17 02:00 83 12/02/17 01:46 97.7 95 20 117/74 (88) 100 12/02/17 00:15 84 20 99/67 (78) 99 Room Air 12/01/17 21:00 110 20 118/77 (91) 98 Room Air 12/01/17 20:22 98 Nasal Cannula 1.00 12/01/17 19:44 97 20 108/72 (84) 98 Nasal Cannula 2.00 12/01/17 18:12 98 10 130/85 (100) 96 Aerosol Mask 10.00 12/01/17 16:45 110 8 97 Nasal Cannula 2.00 12/01/17 16:39 97.9 110 8 115/66 (82) 96 I/O 12/01/17 12/01/17 12/01/17 12/02/17 12/02/17 12/02/17 06:59 14:59 22:59 06:59 14:59 22:59 Intake Total 511.2 ml Output Total 1000 ml 800 ml Balance -1000 ml -288.8 ml Intake Oral 0 ml IV Total 511.2 ml Output Urine Total 1000 ml 800 ml # Voids 0 # Bowel Movements 0 Result Diagram: 12/02/1761912/02/17619 Objective Remarks GENERAL: Thin, weak appearing woman SKIN: Warm and dry. HEAD: Normocephalic. EYES: No scleral icterus. No injection or drainage. NECK: Supple, trachea midline. No JVD or lymphadenopathy. CARDIOVASCULAR: Regular rate and rhythm without murmurs, gallops, or rubs. RESPIRATORY: Breath sounds equal bilaterally. No accessory muscle use. GASTROINTESTINAL: Abdomen soft, non-tender, nondistended. EXTREMITIES: No cyanosis, or edema. Muscle wasting NEUROLOGICAL: Awake, alert, and oriented x 3. Non-focal. 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 Damian Álvarez MD Dec 02, 2017 14:10
--- NOTE | 2017-12-02 14:13 | HHI.DS ---
Discharge Summary Admission Date Dec 01, 2017 at 18:45 Discharge Date: Dec 02, 2017 Admitting Diagnosis obtunded, alcohol intox, narcotic OD (1) Alcohol abuse ICD Code: F10.10 - Alcohol abuse, uncomplicated Status: Acute Procedures none Brief History - From Admission 67-year-old female with past medical history significant of opiate dependency is brought in by paramedics with altered mental status. In the emergency department she was quite obtunded and unable to provide any meaningful history. She does have chronic pain and takes morphine and Dilaudid as prescribed medications. Today she is quite intoxicated with alcohol level 385. CBC/BMP: 12/02/17 0620 12/02/17 0620 Significant Findings Laboratory Tests Test 12/01/17 16:50 12/01/17 17:18 12/01/17 17:50 12/02/17 01:50 Platelet Count 134 TH/MM3 (150-450) Lymphocytes (%) (Auto) 55.2 % (9.0-44.0) Monocytes (%) (Auto) 10.8 % (0.0-8.0) Blood Urea Nitrogen 30 MG/DL (7-18) Creatinine 1.21 MG/DL (0.50-1.00) Total Protein 9.0 GM/DL (6.4-8.2) Albumin 3.2 GM/DL (3.4-5.0) Aspartate Amino Transf (AST/SGOT) 60 U/L (15-37) Chloride Level 110 MEQ/L (98-107) Carbon Dioxide Level 18.1 MEQ/L (21.0-32.0) Estimat Glomerular Filtration Rate 54 ML/MIN (>89) Salicylates Level LESS THAN 1.7 MG/DL Acetaminophen Level LESS THAN 2.0 MCG/ML Ethyl Alcohol Level 385 MG/DL (0-5) Blood Gas HCO3 16 mmol/L (22-26) Blood Gas Base Excess -6.8 mmol/L (-2-2) Arterial Blood pH 7.50 (7.380-7.420) Arterial Blood Partial Pressure CO2 21 mmHg (38-42) Urine Opiates Screen POS (NEG) Test 12/02/17 06:20 White Blood Count 3.4 TH/MM3 (4.0-11.0) Platelet Count 99 TH/MM3 (150-450) Platelet Estimate LOW (NORMAL) Blood Urea Nitrogen 23 MG/DL (7-18) Random Glucose 108 MG/DL (74-106) Albumin 2.8 GM/DL (3.4-5.0) Calcium Level 8.0 MG/DL (8.5-10.1) Aspartate Amino Transf (AST/SGOT) 54 U/L (15-37) Chloride Level 114 MEQ/L (98-107) Carbon Dioxide Level 19.5 MEQ/L (21.0-32.0) PE at Discharge GENERAL: Thin, weak appearing woman SKIN: Warm and dry. HEAD: Normocephalic. EYES: No scleral icterus. No injection or drainage. NECK: Supple, trachea midline. No JVD or lymphadenopathy. CARDIOVASCULAR: Regular rate and rhythm without murmurs, gallops, or rubs. RESPIRATORY: Breath sounds equal bilaterally. No accessory muscle use. GASTROINTESTINAL: Abdomen soft, non-tender, nondistended. EXTREMITIES: No cyanosis, or edema. Muscle wasting NEUROLOGICAL: Awake, alert, and oriented x 3. Non-focal. Hospital Course Patient recovered from a state of respiratory distress related to combining alcohol with narcotic pain medications. She is resting in the ICU, awake, oriented this morning. She had important things to do at home and decided to leave AMA . Pt Condition on Discharge: Stable Discharge Disposition: Discharge Home Discharge Time: <= 30 minutes Damian Álvarez MD Dec 02, 2017 14:13
--- NOTE | 2017-12-02 21:49 | EKG ---
Date Performed: 12/01/2017 Time Performed: 18:09:08 PTAGE: 67 years EKG: Sinus rhythm NORMAL ECG PREVIOUS TRACING : 05/17/2017 11.59 Since the prior tracing, there has been no significant perez DOCTOR: Abundio Ramirez Interpretating Date/Time 12/02/2017 21:47:51
== END 2017-12-02 11:40 | disposition left against medical advice (07) | DRG 918 ==
LOC: NEPC 16:27 → NEDA 18:45 → NEDH 22:45 → HIMN 12-02 01:35
PROVIDERS: ADMIT Family Medicine; ATTEND Family Medicine
DX: T40.2X1A Poisoning by other opioids, accidental (unintentional), initial encounter (principal); F03.90 Unspecified dementia, unspecified severity, without behavioral disturbance, psychotic disturbance, mood disturbance, and anxiety; J44.9 Chronic obstructive pulmonary disease, unspecified; F10.129 Alcohol abuse with intoxication, unspecified; I10 Essential (primary) hypertension; D50.9 Iron deficiency anemia, unspecified; F11.20 Opioid dependence, uncomplicated; T51.0X1A Toxic effect of ethanol, accidental (unintentional), initial encounter; K21.9 Gastro-esophageal reflux disease without esophagitis; G89.4 Chronic pain syndrome; R41.82 Altered mental status, unspecified; M06.9 Rheumatoid arthritis, unspecified; M10.9 Gout, unspecified; M16.11 Unilateral primary osteoarthritis, right hip; F17.200 Nicotine dependence, unspecified, uncomplicated; F32.9 Major depressive disorder, single episode, unspecified; R06.03 Acute respiratory distress; F41.9 Anxiety disorder, unspecified; Y90.8 Blood alcohol level of 240 mg/100 ml or more
CPT/HCPCS: 36600; 51702; 70450; 71045; 80053; 80307; 81001; 82805; 83735; 84100; 84443; 85025; 85610; 85730; 87641; 93005; 94640; 94664; 96360; J1644; J3411; J7030

== ENCOUNTER 2017-12-22 09:00 | Emergency (ER) | payer MEDICARE, MEDICAID ==
[~2017-12-22] VITALS: Ht 162.6 cm; Wt 70.0 kg
[2017-12-22 09:07] VITALS: BP 164/112; PULSE 77; RESP 16; TEMP 98.1; O2SAT 98
== END 2017-12-22 10:11 | disposition left against medical advice (07) ==
LOC: NED 09:00
DX: R07.9 Chest pain, unspecified (principal)
CPT/HCPCS: 99281

== ENCOUNTER 2018-03-16 12:51 | Emergency (ER) | payer MEDICARE ==
[~2018-03-16] VITALS: Ht 175.3 cm; Wt 68.0 kg
[2018-03-16 12:58] VITALS: BP 131/76; PULSE 96; RESP 16; TEMP 98.7
--- NOTE | 2018-03-16 13:06 | PD ---
HPI Chief Complaint: Respiratory Symptoms Time Seen by Provider: 13:05 Travel History International Travel<30 days: No Contact w/Intl Traveler<30days: No Traveled to known affect area: No History of Present Illness HPI 68-year-old female with history of hypertension, COPD, tobacco dependency, opiate dependency with history of IV drug abuse, presents emergency department for evaluation of cough and chest congestion worsening over the last week. Patient states about this time every year she gets a pneumonia. She continues to smoke tobacco cigarettes. She denies any pain. Denies any significant shortness of breath. Denies any fever or chills. Patient states that her cough is productive of a yellow green sputum. She has no other symptoms to report at this time. PFSH Past Medical History Alzheimer's Disease: Yes Anemia: Yes (IRON DEFICIENCY ANEMIA CHRONIC) Arthritis: Yes (rheumatoid) Asthma: No Autoimmune Disease: No Blood Disorders: Yes (hx of rectal bleeding) Anxiety: Yes Depression: Yes Heart Rhythm Problems: No Cancer: No Cardiovascular Problems: Yes High Cholesterol: Yes Chest Pain: No Congestive Heart Failure: Yes COPD: Yes Dementia: Yes Diabetes: No Diminished Hearing: No Endocrine: No Gastrointestinal Disorders: Yes (mass on liver) Genitourinary: No Hepatitis: Yes (C secondary to IV drug abuse, B (questionable)) Hiatal Hernia: Yes (REPAIR) Hypertension: Yes Immune Disorder: No Implanted Vascular Access Dvce: No Musculoskeletal: Yes (RA, Gout) Neurologic: Yes (Dementia) Psychiatric: No Reproductive: No Respiratory: Yes Immunizations Current: Yes Sleep Apnea: No Thyroid Disease: No Ulcer: Yes ?: Not Menopausal: Yes : 5 Para: 3 : 2 Past Surgical History Abdominal Surgery: Yes (INGUINAL HERNIA REPAIR) Section: Yes (X1) Gynecologic Surgery: Yes Pacemaker: No Other Surgery: Yes (fx nose, fx ankle) Social History Alcohol Use: Yes (OCC) Tobacco Use: Yes (1 PPD EVERY FEW DAYS) Substance Use: Yes (hx of iv drug use) Allergies-Medications (Allergen,Severity, Reaction): Coded Allergies: No Known Allergies (Verified Allergy, Unknown, 03/16/18) Reported Meds & Prescriptions Reported Meds & Active Scripts Active Proair Hfa 8.5 GM Inh (Albuterol Sulfate) 90 Mcg/Act Aer 2 Puff INH Q4HR PRN 108 mcg/actuation Prednisone 50 Mg Tab 50 Mg PO DAILY 5 Days Zithromax Z-Heber (Azithromycin) 250 Mg Dspk 250 Mg PO DIRECTED 500 MG (2 tabs) day 1, then 1 tab days 2-5. Duoneb (Ipratropium-Albuterol Neb) 0.5-2.5 Mg/3 Ml Neb 1 Ampule INH Q6HR NEB Pantoprazole (Pantoprazole Sodium) 40 Mg Tab 40 Mg PO Q12HR Reported Cyproheptadine (Cyproheptadine HCl) 4 Mg Tab 4 Mg PO TID Hydrochlorothiazide 25 Mg Tab 37.5 Mg PO DAILY Lisinopril 10 Mg Tab 10 Mg PO DAILY Hydromorphone (Hydromorphone HCl) 8 Mg Tab 8 Mg PO Q6H PRN Flexeril (Cyclobenzaprine HCl) 10 Mg Tab 10 Mg PO BID Gabapentin 300 Mg Cap 300 Mg PO TID Xanax (Alprazolam) 1 Mg Tab 1 Mg PO Q6H PRN Allopurinol 100 Mg Tab 100 Mg PO DAILY Review of Systems Except as stated in HPI: all other systems reviewed are Neg Physical Exam Narrative GENERAL: Well-nourished female patient, ambulatory and in no acute distress. SKIN: Focused skin assessment warm/dry. HEAD: Atraumatic. Normocephalic. EYES: Pupils equal and round. No scleral icterus. No injection or drainage. ENT: No nasal bleeding or discharge. Mucous membranes pink and moist. NECK: Trachea midline. No JVD. CARDIOVASCULAR: Elevated rate and rhythm. RESPIRATORY: No accessory muscle use. Scattered rhonchi, diminished bases to auscultation. Breath sounds equal bilaterally. GASTROINTESTINAL: Abdomen soft, non-tender, nondistended. Hepatic and splenic margins not palpable. MUSCULOSKELETAL: No obvious deformities. No clubbing. No cyanosis. No edema. NEUROLOGICAL: Awake and alert. No obvious cranial nerve deficits. Motor grossly within normal limits. Normal speech. Data Data Last Documented VS Vital Signs Date Time Temp Pulse Resp B/P (MAP) Pulse Ox O2 Delivery O2 Flow Rate FiO2 03/16/18 13:12 96 Room Air 03/16/18 12:58 98.7 96 16 131/76 (94) Orders Orders Complete Blood Count With Diff (03/16/18 13:10) Basic Metabolic Panel (Bmp) (03/16/18 13:10) Iv Access Insert/Monitor (03/16/18 13:10) Ecg Monitoring (03/16/18 13:10) Oximetry (03/16/18 13:10) Oxygen Administration (03/16/18 13:10) Chest, Single Ap (03/16/18 13:10) Sodium Chloride 0.9% Flush (Ns Flush) (03/16/18 13:15) Albuterol-Ipratropium Neb (Duoneb Neb) (03/16/18 13:15) Dexamethasone Inj (Decadron Inj) (03/16/18 13:15) Methylprednisolone So Succ Inj (Solumedr (03/16/18 13:15) Ed Discharge Order (03/16/18 14:19) Labs Laboratory Tests Test 03/16/18 13:29 White Blood Count 6.0 TH/MM3 Red Blood Count 4.38 MIL/MM3 Hemoglobin 13.2 GM/DL Hematocrit 40.3 % Mean Corpuscular Volume 91.9 FL Mean Corpuscular Hemoglobin 30.1 PG Mean Corpuscular Hemoglobin Concent 32.7 % Red Cell Distribution Width 15.2 % Platelet Count 100 TH/MM3 Mean Platelet Volume 10.1 FL Neutrophils (%) (Auto) 66.4 % Lymphocytes (%) (Auto) 24.8 % Monocytes (%) (Auto) 7.1 % Eosinophils (%) (Auto) 1.2 % Basophils (%) (Auto) 0.5 % Neutrophils # (Auto) 4.0 TH/MM3 Lymphocytes # (Auto) 1.5 TH/MM3 Monocytes # (Auto) 0.4 TH/MM3 Eosinophils # (Auto) 0.1 TH/MM3 Basophils # (Auto) 0.0 TH/MM3 CBC Comment DIFF FINAL Differential Comment Blood Urea Nitrogen 22 MG/DL Creatinine 1.15 MG/DL Random Glucose 98 MG/DL Calcium Level 8.7 MG/DL Sodium Level 140 MEQ/L Potassium Level 4.1 MEQ/L Chloride Level 110 MEQ/L Carbon Dioxide Level 20.2 MEQ/L Anion Gap 10 MEQ/L Estimat Glomerular Filtration Rate 57 ML/MIN MDM Medical Decision Making Medical Screen Exam Complete: Yes Emergency Medical Condition: Yes Medical Record Reviewed: Yes Differential Diagnosis Pneumonia versus COPD exacerbation versus bronchospasm versus electrolyte abnormality Narrative Course 68-year-old female presents emergency department for evaluation of cough and chest congestion. Patient appears well. Heart rate is slightly elevated otherwise vital signs are stable. She does have scattered rhonchi throughout her lung moore. She is given IV Solu-Medrol and DuoNeb treatments while here. This does help for her adventitious breath sounds to clear but not completely resolved. Laboratory Tests Test 03/16/18 13:29 White Blood Count 6.0 TH/MM3 Red Blood Count 4.38 MIL/MM3 Hemoglobin 13.2 GM/DL Hematocrit 40.3 % Mean Corpuscular Volume 91.9 FL Mean Corpuscular Hemoglobin 30.1 PG Mean Corpuscular Hemoglobin Concent 32.7 % Red Cell Distribution Width 15.2 % Platelet Count 100 TH/MM3 Mean Platelet Volume 10.1 FL Neutrophils (%) (Auto) 66.4 % Lymphocytes (%) (Auto) 24.8 % Monocytes (%) (Auto) 7.1 % Eosinophils (%) (Auto) 1.2 % Basophils (%) (Auto) 0.5 % Neutrophils # (Auto) 4.0 TH/MM3 Lymphocytes # (Auto) 1.5 TH/MM3 Monocytes # (Auto) 0.4 TH/MM3 Eosinophils # (Auto) 0.1 TH/MM3 Basophils # (Auto) 0.0 TH/MM3 CBC Comment DIFF FINAL Differential Comment Blood Urea Nitrogen 22 MG/DL Creatinine 1.15 MG/DL Random Glucose 98 MG/DL Calcium Level 8.7 MG/DL Sodium Level 140 MEQ/L Potassium Level 4.1 MEQ/L Chloride Level 110 MEQ/L Carbon Dioxide Level 20.2 MEQ/L Anion Gap 10 MEQ/L Estimat Glomerular Filtration Rate 57 ML/MIN Last Impressions Chest X-Ray 03/16/18 1310 Signed Impressions: CONCLUSION: Mild airspace opacity in the medial aspect of the right lower lung zone could r epresent atelectasis or airspace consolidation. This finding is new since the p rior examination. I discussed the patient my attending physician. Patient be started on oral antibiotics. She is encouraged to follow-up with a primary care provider and return immediately with acute worsening of symptoms. Diagnosis Primary Impression: PNA (pneumonia) Qualified Codes: J18.1 - Lobar pneumonia, unspecified organism Referrals: Primary Care Physician Patient Instructions: Bacterial Pneumonia (ED), General Instructions Additional Instructions: Maintain adequate oral hydration It is recommended that he stop smoking tobacco cigarettes Follow-up with a primary care provider Return immediately with acute worsening symptoms Med/Other Pt SpecificInfo: Prescription(s) given Scripts Albuterol 8.5 GM Inh (Proair Hfa 8.5 GM Inh) 90 Mcg/Act Aer 2 PUFF INH Q4HR Y for SHORTNESS OF BREATH, #1 INHALER 0 Refills 108 mcg/actuation Prov: Diana Orantes 03/16/18 Prednisone (Prednisone) 50 Mg Tab 50 MG PO DAILY for 5 Days, #5 TAB 0 Refills Prov: Diana Orantes 03/16/18 Azithromycin (Zithromax Z-Heber) 250 Mg Dspk 250 MG PO DIRECTED for Infection, #1 DSPK 0 Refills 500 MG (2 tabs) day 1, then 1 tab days 2-5. Prov: Diana Orantes 03/16/18 Disposition: 01 DISCHARGE HOME Condition: Stable Diana Orantes March 16, 2018 13:06
[2018-03-16 13:12] VITALS: O2SAT 96
[2018-03-16] MEDS ORDERED: DEXAMETHASONE SOD PHOS 4 MG/ML VIAL IM ONE (13:15)
[2018-03-16] MEDS ORDERED: methylPREDNISolone SOD SUCC 125 MG/2 ML VIAL IV PUSH ONE (13:15)
[2018-03-16] MEDS ORDERED: SODIUM CHLORIDE 0.9% FLUSH 10 ML FLUSH IVF PRN (13:15)
[2018-03-16] MEDS: RESP: ALBUTEROL 2.5 MG/IPRATROPIUM 0.5 MG NEB (SCH) INH (13:19)
[2018-03-16 13:58] LABS: BASOPHIL % 0.5 % (0.0-2.0); EOSINOPHIL # 0.1 TH/MM3 (0-0.4); EOSINOPHIL % 1.2 % (0.0-4.0); HEMATOCRIT 40.3 % (35.0-46.0); HEMOGLOBIN 13.2 GM/DL (11.6-15.3); LYMPH % 24.8 % (9.0-44.0); LYMPHOCYTE # 1.5 TH/MM3 (1.0-4.8); MEAN CELL VOLUME 91.9 FL (80.0-100.0); MEAN CORPUSCULAR HEMOGLOBIN 30.1 PG (27.0-34.0); MEAN CORPUSCULAR HGB CONC 32.7 % (32.0-36.0); MEAN PLATELET VOLUME 10.1 FL (7.0-11.0); MONO % 7.1 % (0.0-8.0); MONOCYTE # 0.4 TH/MM3 (0-0.9); NEUT % 66.4 % (16.0-70.0); PLATELET COUNT 100 TH/MM3 (150-450); RED BLOOD COUNT 4.38 MIL/MM3 (4.00-5.30); RED CELL DISTRIBUTION WIDTH 15.2 % (11.6-17.2)
--- NOTE | 2018-03-16 14:13 | RADRPT ---
EXAM DATE: 03/16/2018 1:39 PM EDT AGE/SEX: 68 years / Female INDICATIONS: Shortness of breath, cough, and congestion. CLINICAL DATA: This is the patient's initial encounter. Patient reports that signs and symptoms have been present for 3 days and indicates a pain score of 0/10. MEDICAL/SURGICAL HISTORY: Hypertension. None. [place] [facility] [place]. . FINDINGS: Portable AP view of the chest demonstrates a normal size cardiac silhouette. Multiple EKG lines overl ie the patient. There is mild airspace opacity in the medial right lower lung zone. No pleural effusi on or pneumothorax is identified. Bones and soft tissues demonstrate no acute finding. CONCLUSION: Mild airspace opacity in the medial aspect of the right lower lung zone could represent atelectasis o r airspace consolidation. This finding is new since the prior examination. Electronically signed by: Mainor Avila MD 03/16/2018 2:12 PM EDT
[2018-03-16 14:16] LABS: BICARBONATE 20.2 MEQ/L (21.0-32.0); CALCIUM 8.7 MG/DL (8.5-10.1); CREATININE 1.15 MG/DL (0.50-1.00)
[2018-03-16] MEDS ORDERED: ALBUAER3 INH (14:22)
[2018-03-16] MEDS ORDERED: PRED50 PO (14:22)
[2018-03-16] MEDS ORDERED: ZITHTAB PO (14:22)
== END 2018-03-16 16:11 | disposition home or self-care (01) ==
LOC: NEPE 12:51
DX: J44.0 Chronic obstructive pulmonary disease with (acute) lower respiratory infection (principal); J18.1 Lobar pneumonia, unspecified organism; I11.0 Hypertensive heart disease with heart failure; I50.9 Heart failure, unspecified; F17.200 Nicotine dependence, unspecified, uncomplicated
CPT/HCPCS: 71045; 80048; 85025; 94640; 94664; 96374; 99284; J2930